=== PATIENT | male | born 1950 | race Two or more races ===

== ENCOUNTER 2020-06-15 08:15 | Outpatient (REF) | payer MEDICARE, OTHER, SELFPAY ==
[2020-06-15 10:26] LABS: Hematocrit 39.1 % (42-52); Hemoglobin 12.7 g/dl (14.0-18.0); Mean Corpuscular HGB Conc 32.5 g/dl (31.0-36.0); Mean Corpuscular Hemoglobin 28.5 pg (27.0-33.0); Mean Corpuscular Volume 87.9 fL (80-98); Mean Platelet Volume 12.1 fL (9.4-12.4); Platelet Count 220 X10*3/uL (160-400); Red Blood Count 4.45 X10*6/uL (4.60-5.80); Red Cell Distribution Width 13.1 % (11.0-16.0); White Blood Count 8.3 X10*3/uL (4.8-10.8)
[2020-06-15 11:28] LABS: Prostate Specific Antigen 0.27 ng/mL (<0.05-4.0)
[2020-06-19 13:22] LABS: Testosterone, Total 337 ng/dL (250-1100)
== END 2020-06-15 08:16 | disposition home or self-care (01) ==
LOC: HO.10HDL 08:15
PROVIDERS: Visit Provider Urology
DX: E23.0 Hypopituitarism (principal)
CPT/HCPCS: 36415; 84153; 84403; 85027

== ENCOUNTER → 2020-06-28 09:53 | Outpatient (BNVA) | payer MEDICARE, OTHER, SELFPAY | PROVIDERS: PCP Internal Medicine; Referring Provider Internal Medicine; Visit Provider Urology | DX: E29.1 Testicular hypofunction (principal); N40.1 Benign prostatic hyperplasia with lower urinary tract symptoms; N13.8 Other obstructive and reflux uropathy; Z12.5 Encounter for screening for malignant neoplasm of prostate | CPT/HCPCS: Q3014 ==

== ENCOUNTER 2020-12-16 08:22 | Outpatient (REF) | payer MEDICARE, OTHER, SELFPAY ==
[2020-12-16 10:21] LABS: PSA,Total (Free>4and<10) 0.33 ng/mL (0.00-4.00)
[2020-12-16 14:48] LABS: Hematocrit 40.3 % (42-52); Mean Corpuscular HGB Conc 32.3 g/dl (31.0-36.0); Mean Corpuscular Hemoglobin 28.5 pg (27.0-33.0); Mean Corpuscular Volume 88.4 fL (80-98); Mean Platelet Volume 12.2 fL (9.4-12.4); Platelet Count 233 X10*3/uL (160-400); Red Blood Count 4.56 X10*6/uL (4.60-5.80); Red Cell Distribution Width 13.5 % (11.0-16.0)
[2020-12-22 10:13] LABS: Testosterone, Free 26.6 pg/mL (30.0-135.0); Testosterone, Total 200 ng/dL (250-1100)
== END 2020-12-16 08:23 | disposition home or self-care (01) ==
LOC: HO.LAB 08:22
PROVIDERS: PCP Internal Medicine; Visit Provider Urology
DX: E29.1 Testicular hypofunction (principal); N40.1 Benign prostatic hyperplasia with lower urinary tract symptoms; N13.8 Other obstructive and reflux uropathy; Z12.5 Encounter for screening for malignant neoplasm of prostate
CPT/HCPCS: 36415; 84153; 84402; 84403; 85027

== ENCOUNTER → 2020-12-29 10:15 | Outpatient (BNVA) | payer MEDICARE, OTHER, SELFPAY | PROVIDERS: PCP Internal Medicine; Visit Provider Urology | DX: E29.1 Testicular hypofunction (principal) | CPT/HCPCS: 99212 ==

== ENCOUNTER 2021-06-19 09:46 | Outpatient (REF) | payer MEDICARE, OTHER, SELFPAY ==
[2021-06-19 09:53] LABS: MANUAL DIFF FLAG NO
[2021-06-19 10:37] LABS: Basophils Percent Auto 0.2 % (0-2); Eosinophils Absolute Auto 0.1 X10*3/uL (0.0-0.4); Hematocrit 38.9 % (42.0-52.0); Hemoglobin 12.6 g/dl (14.0-18.0); Imm Gran Abs Auto 0.04 X10*3/uL (0.00-0.03); Imm Gran Pct Auto 0.5 % (0.0-0.4); Lymphocytes Absolute Auto 3.3 X10*3/uL (1.2-4.9); Lymphocytes Percent Auto 37.7 % (20-40); Mean Corpuscular HGB Conc 32.4 g/dl (31.0-36.0); Mean Corpuscular Hemoglobin 28.2 pg (27.0-33.0); Mean Platelet Volume 12.2 fL (9.4-12.4); Monocytes Absolute Auto 0.8 X10*3/uL (0.1-1.2); Monocytes Percent Auto 8.7 % (2-11); Neutrophils Absolute Auto 4.5 x10*3/uL (2.0-8.3); Neutrophils Percent Auto 51.9 % (45-73); Platelet Count 175 X10*3/uL (160-400); Red Blood Count 4.47 X10*6/uL (4.60-5.80); Red Cell Distribution Width 13.3 % (11.0-16.0); White Blood Count 8.8 X10*3/uL (4.8-10.8)
[2021-06-19 11:04] LABS: Alanine Aminotransferase 17 U/L (0-40); Albumin Level 4.1 g/dL (3.5-5.0); Aspartate Amino Transferase 16 U/L (5-37); Bilirubin Direct 0.2 mg/dL (0.0-0.5); Bilirubin Total 0.5 mg/dL (0.0-1.0); Total Protein 6.8 g/dL (6.5-8.0)
[2021-06-19 11:06] LABS: Alanine Aminotransferase 17 U/L (0-40); Albumin Level 4.3 g/dL (3.5-5.0); Anion Gap 12 (12-20); Aspartate Amino Transferase 16 U/L (5-37); Bilirubin Total 0.5 mg/dL (0.0-1.0); Blood Urea Nitrogen 23 mg/dL (9-16); Calcium 8.8 mg/dL (8.4-10.2); Carbon Dioxide 23 mmol/L (22-29); Chloride 110 mmol/L (96-108); Cholesterol 182 mg/dL; Estimated Glomerular Filt Rate > 60; Glucose Random 109 mg/dL (60-115); HDL Cholesterol 43 mg/dL; LDL Cholesterol Calculated 113 mg/dl; Potassium 4.3 mmol/L (3.3-5.1); Sodium 141 mmol/L (135-145); Triglycerides 134 mg/dL
[2021-06-19 11:08] LABS: Estimated Average Glucose 128 mg/dL; Hemoglobin A1c % 6.1 %
[2021-06-19 11:08] LABS: Alkaline Phosphatase 60 U/L (39-117)
[2021-06-19 11:09] LABS: Alkaline Phosphatase 61 U/L (39-117)
[2021-06-19 11:30] LABS: Free T4 (Free Thyroxine) 1.03 ng/dL (0.71-1.85)
[2021-06-19 11:42] LABS: Folate 16.7 ng/mL (> or = 4.0); Vitamin B12 550 pg/mL (200-900)
[2021-06-23 19:25] LABS: Testosterone, Free 60.3 pg/mL (30.0-135.0); Testosterone, Total 361 ng/dL (250-1100)
== END 2021-06-19 09:47 | disposition home or self-care (01) ==
LOC: HO.LAB 09:46
PROVIDERS: Absent Provider Internal Medicine; PCP Internal Medicine; Visit Provider Urology
DX: Z12.5 Encounter for screening for malignant neoplasm of prostate (principal); R73.02 Impaired glucose tolerance (oral); E29.1 Testicular hypofunction
CPT/HCPCS: 36415; 80053; 80061; 80076; 82248; 82607; 82746; 83036; 84153; 84402; 84403; 84439; 84443; 85025; 85027

== ENCOUNTER → 2021-06-29 10:33 | Outpatient (BNVA) | payer MEDICARE, OTHER, SELFPAY | PROVIDERS: PCP Internal Medicine; Visit Provider Urology | DX: E29.1 Testicular hypofunction (principal) | CPT/HCPCS: 99212 ==

== ENCOUNTER 2021-12-19 09:36 | Outpatient (REF) | payer MEDICARE, OTHER, SELFPAY ==
[2021-12-19 10:07] LABS: MANUAL DIFF FLAG NO
[2021-12-19 10:41] LABS: Basophils Percent Auto 0.3 % (0-2); Eosinophils Absolute Auto 0.1 X10*3/uL (0.0-0.4); Hematocrit 38.2 % (42.0-52.0); Hemoglobin 12.2 g/dl (14.0-18.0); Hemoglobin 12.6 g/dl (14.0-18.0); Imm Gran Abs Auto 0.04 X10*3/uL (0.00-0.03); Imm Gran Pct Auto 0.5 % (0.0-0.4); Lymphocytes Absolute Auto 3.1 X10*3/uL (1.2-4.9); Lymphocytes Percent Auto 35.7 % (20-40); Mean Corpuscular HGB Conc 31.9 g/dl (31.0-36.0); Mean Corpuscular Hemoglobin 28.9 pg (27.0-33.0); Mean Corpuscular Volume 87.6 fL (80.0-98.0); Mean Platelet Volume 11.7 fL (9.4-12.4); Monocytes Absolute Auto 0.8 X10*3/uL (0.1-1.2); Neutrophils Absolute Auto 4.6 x10*3/uL (2.0-8.3); Neutrophils Percent Auto 53.5 % (45-73); Platelet Count 228 X10*3/uL (160-400); Platelet Count 240 X10*3/uL (160-400); Red Blood Count 4.36 X10*6/uL (4.60-5.80); Red Cell Distribution Width 13.5 % (11.0-16.0); Red Cell Distribution Width 13.6 % (11.0-16.0); White Blood Count 8.6 X10*3/uL (4.8-10.8); White Blood Count 8.7 X10*3/uL (4.8-10.8)
[2021-12-19 10:51] LABS: Estimated Average Glucose 126 mg/dL
[2021-12-19 11:06] LABS: Alanine Aminotransferase 18 U/L (0-40); Alkaline Phosphatase 59 U/L (39-117); Anion Gap 12 (12-20); Aspartate Amino Transferase 17 U/L (5-37); Bilirubin Total 0.6 mg/dL (0.0-1.0); Blood Urea Nitrogen 19 mg/dL (9-16); Calcium 9.1 mg/dL (8.4-10.2); Carbon Dioxide 23 mmol/L (22-29); Chloride 109 mmol/L (96-108); Cholesterol 154 mg/dL; Estimated Glomerular Filt Rate > 60; Glucose Random 119 mg/dL (60-115); HDL Cholesterol 37 mg/dL; LDL Cholesterol Calculated 90 mg/dl; Potassium 3.9 mmol/L (3.3-5.1); Sodium 140 mmol/L (135-145); Total Protein 6.7 g/dL (6.5-8.0); Triglycerides 137 mg/dL
[2021-12-19 11:22] LABS: Free T4 (Free Thyroxine) 0.89 ng/dL (0.71-1.85)
[2021-12-19 11:29] LABS: Prostate Specific Antigen 0.31 ng/mL (<0.05-4.0); Thyroid Stimulating Hormone 0.58 uIU/mL (0.32-4.0)
[2021-12-19 11:46] LABS: Folate > 20.0 ng/mL (> or = 4.0); Vitamin B12 646 pg/mL (200-900)
[2021-12-23 11:11] LABS: Testosterone, Total 355 ng/dL (250-1100)
== END 2021-12-19 09:37 | disposition home or self-care (01) ==
LOC: HO.LAB 09:36
PROVIDERS: Absent Provider Internal Medicine; PCP Internal Medicine; Visit Provider Urology
DX: Z12.5 Encounter for screening for malignant neoplasm of prostate (principal); E29.1 Testicular hypofunction; N13.8 Other obstructive and reflux uropathy; N40.1 Benign prostatic hyperplasia with lower urinary tract symptoms; R73.02 Impaired glucose tolerance (oral); E78.00 Pure hypercholesterolemia, unspecified
CPT/HCPCS: 36415; 80053; 80061; 82607; 82746; 83036; 84153; 84403; 84439; 84443; 85025; 85027

== ENCOUNTER → 2021-12-29 08:21 | Outpatient (BNVA) | payer MEDICARE, OTHER, SELFPAY | PROVIDERS: PCP Internal Medicine; Visit Provider Urology | DX: E29.1 Testicular hypofunction (principal) | CPT/HCPCS: 99212 ==

== ENCOUNTER 2022-06-19 09:22 | Outpatient (REF) | payer MEDICARE, OTHER, SELFPAY ==
[2022-06-19 10:11] LABS: Hematocrit 40.2 % (42.0-52.0)
[2022-06-19 14:45] LABS: Prostate Specific Antigen 0.28 ng/mL (<0.05-4.0)
[2022-06-24 17:39] LABS: Testosterone, Total 293 ng/dL (250-1100)
== END 2022-06-19 09:23 | disposition home or self-care (01) ==
LOC: HO.LAB 09:22
PROVIDERS: PCP Internal Medicine; Visit Provider Urology
DX: E29.1 Testicular hypofunction (principal); Z12.5 Encounter for screening for malignant neoplasm of prostate
CPT/HCPCS: 36415; 84153; 84403; 85014

== ENCOUNTER → 2022-07-03 09:21 | Outpatient (BNVA) | payer MEDICARE, OTHER, SELFPAY | PROVIDERS: PCP Internal Medicine; Visit Provider Urology | DX: E29.1 Testicular hypofunction (principal) | CPT/HCPCS: 99212 ==

== ENCOUNTER 2022-10-03 09:23 | Outpatient (REF) | payer MEDICARE, OTHER, SELFPAY ==
[2022-10-03 09:51] LABS: Estimated Average Glucose 126 mg/dL; Hemoglobin A1C 151.7464 umol/L
[2022-10-03 10:26] LABS: Alanine Aminotransferase 19 U/L (0-40); Albumin Level 4.4 g/dL (3.5-5.0); Alkaline Phosphatase 58 U/L (39-117); Anion Gap 12 (12-20); Aspartate Amino Transferase 20 U/L (5-37); Blood Urea Nitrogen 20 mg/dL (9-16); Carbon Dioxide 26 mmol/L (22-29); Chloride 109 mmol/L (96-108); Estimated Glomerular Filt Rate > 60; Glucose Random 122 mg/dL (60-115); Potassium 4.2 mmol/L (3.3-5.1); Sodium 143 mmol/L (135-145); Total Protein 7.1 g/dL (6.5-8.0)
== END 2022-10-03 09:24 | disposition home or self-care (01) ==
LOC: HO.LAB 09:23
PROVIDERS: Urology; PCP Internal Medicine; Visit Provider Internal Medicine
DX: R73.02 Impaired glucose tolerance (oral) (principal)
CPT/HCPCS: 36415; 80053; 83036

== ENCOUNTER 2022-12-14 09:23 | Outpatient (REF) | payer MEDICARE, OTHER, SELFPAY ==
[2022-12-14 09:51] LABS: Immature Retic Fraction 6.4 % (2.3-13.4); Retic HGB Equivalent 34.2 pg (30.0-35.0); Reticulocyte Percent 1.2 % (0.5-1.8); Reticulocytes Absolute 0.053 X10*6/uL (0.026-0.095)
[2022-12-14 09:57] LABS: Estimated Average Glucose 123 mg/dL; Hemoglobin A1c % 5.9 %
[2022-12-14 10:10] LABS: MANUAL DIFF FLAG NO
[2022-12-14 10:12] LABS: Basophils Percent Auto 0.4 % (0-2); Eosinophils Absolute Auto 0.1 X10*3/uL (0.0-0.4); Eosinophils Percent Auto 1.1 % (0-4); Hematocrit 40.3 % (42.0-52.0); Hemoglobin 13.3 g/dl (14.0-18.0); Imm Gran Abs Auto 0.03 X10*3/uL (0.00-0.03); Imm Gran Pct Auto 0.4 % (0.0-0.4); Lymphocytes Absolute Auto 3.6 X10*3/uL (1.2-4.9); Mean Corpuscular Hemoglobin 28.9 pg (27.0-33.0); Mean Corpuscular Volume 87.4 fL (80.0-98.0); Mean Platelet Volume 11.5 fL (9.4-12.4); Monocytes Absolute Auto 0.7 X10*3/uL (0.1-1.2); Monocytes Percent Auto 8.2 % (2-11); Neutrophils Absolute Auto 3.8 x10*3/uL (2.0-8.3); Neutrophils Percent Auto 45.9 % (45-73); Platelet Count 229 X10*3/uL (160-400); Red Blood Count 4.61 X10*6/uL (4.60-5.80); Red Cell Distribution Width 13.3 % (11.0-16.0); White Blood Count 8.2 X10*3/uL (4.8-10.8)
[2022-12-14 10:23] LABS: Alanine Aminotransferase 20 U/L (0-40); Albumin Level 4.3 g/dL (3.5-5.0); Alkaline Phosphatase 60 U/L (39-117); Anion Gap 14 (12-20); Aspartate Amino Transferase 18 U/L (5-37); Bilirubin Total 0.9 mg/dL (0.0-1.0); Blood Urea Nitrogen 19 mg/dL (9-16); Calcium 8.9 mg/dL (8.4-10.2); Carbon Dioxide 25 mmol/L (22-29); Chloride 108 mmol/L (96-108); Cholesterol 168 mg/dL; Estimated Glomerular Filt Rate > 60; Glucose Random 114 mg/dL (60-115); HDL Cholesterol 40 mg/dL; Iron 120 mcg/dL (45-160); LDL Cholesterol Calculated 94 mg/dl; Percent Iron Saturation 36 % (15-50); Sodium 143 mmol/L (135-145); Total Iron Binding Capacity 334 mcg/dL (228-428); Triglycerides 172 mg/dL; Unsaturated Iron Binding 214 ug/dL
[2022-12-14 10:37] LABS: Ferritin 96 ng/mL (20-250); Free T4 (Free Thyroxine) 0.96 ng/dL (0.71-1.85); Prostate Specific Antigen Scr 0.32 ng/mL (<0.05-4.0)
[2022-12-14 10:53] LABS: Folate 19.1 ng/mL (> or = 4.0); Prostate Specific Antigen 0.33 ng/mL (<0.05-4.0); Thyroid Stimulating Hormone 1.07 uIU/mL (0.32-4.0); Vitamin B12 862 pg/mL (200-900)
[2022-12-21 12:24] LABS: Testosterone, Total 380 ng/dL (250-1100)
== END 2022-12-14 09:24 | disposition home or self-care (01) ==
LOC: HO.LAB 09:23
PROVIDERS: Absent Provider Internal Medicine; PCP Internal Medicine; Visit Provider Urology
DX: Z12.5 Encounter for screening for malignant neoplasm of prostate (principal); E29.1 Testicular hypofunction; R73.02 Impaired glucose tolerance (oral); I10 Essential (primary) hypertension
CPT/HCPCS: 36415; 80053; 80061; 82607; 82728; 82746; 83036; 83540; 84153; 84403; 84439; 84443; 85025; 85027; 85045

== ENCOUNTER → 2023-01-02 09:42 | Outpatient (BNVA) | payer MEDICARE, OTHER, SELFPAY | PROVIDERS: PCP Internal Medicine; Visit Provider Urology | DX: E29.1 Testicular hypofunction (principal) | CPT/HCPCS: 99212 ==

== ENCOUNTER 2023-02-22 09:45 | Outpatient (AMB) | payer MEDICARE, OTHER, SELFPAY ==
[2023-02-22 09:47] VITALS: BP 148/80; PULSE 71; O2SAT 96; BMI 36.8
--- NOTE | 2023-02-22 09:47 | A.OFFVIS_ITS ---
Intake Vital Signs 02/22/23 09:47 Height 5 ft 5 in Weight 221 lb BMI 36.8 BP 148/80 H Blood Pressure Location Lt brachial Position Sitting Pulse 71 Pulse Source Pulse Oximeter Temp Source Skin Pulse Oximetry (%) 96 Oxygen Delivery Method Room Air Intake Visit Reasons: SWV- G0439 Intake Note: Patient is here for an Annual Wellness Visit. 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 Required: No Allergies lisinopril Allergy (Intermediate, Verified 02/22/23 10:05) cough Medication List - Last Reconciled 02/22/23 by DOMENIC Cervantes amitriptyline 10 mg PO BEDTIME amlodipine 5 mg PO DAILY 90 days atorvastatin 20 mg PO DAILY cholecalciferol (vitamin D3) 50 mcg PO DAILY cyanocobalamin (vitamin B-12) 1,000 mcg PO DAILY fenofibrate 54 mg PO DAILY fluticasone propionate 50 mcg/actuation 2 sprays intranasal DAILY folic acid 1 mg PO DAILY hydrochlorothiazide 25 mg PO DAILY meloxicam 15 mg PO DAILY PRN omeprazole 20 mg PO DAILY testosterone (AndroGel) 4 pumps topical DAILY 30 days Fall Risk Assessment Fall risk assessment: No Falls in past year Date Fall Risk Assessed: 02/22/23 HPI SWV- G0439 HPI Details Patient is a 72-year-old male who presents today for subsequent wellness visit. Patient of Dr. Hsieh. Patient is up-to-date with his health preventative screenings and immunizations. [place] of care was reviewed with the patient and he was provided with a screening schedule. MOLST form is on file and patient reports that he has a healthcare proxy form at home and he will provide office with a copy. [facility] Medical History Allergic rhinitis Anemia Headache Hypercholesterolemia Hypertension Hypogonadism Impaired glucose tolerance Obesity (BMI 30-39.9) Prediabetes Vitamin D deficiency Surgical History Finger amputation, traumatic History of ankle surgery History of colonoscopy Family History Father Lung cancer Mother Diabetes Hypertension CVD (cardiovascular disease) Brother No problems noted. Social History Housing: House Alcohol intake: current Alcohol intake frequency: holidays/special occasions only Alcohol type: beer Patient Tobacco Use Status: Former Tobacco user Years Smoked: quit 1986 e-Cigarette/Vaping Use: Never Used Second Hand Smoke Exposure: No Current occupational status: retired Cognitive needs: No Hearing needs: No Vision needs: Yes Questionnaire Medicare Wellness Checkup What [age]?: 70-79 (72) What gender do you identify with?: male During the past 4 weeks, how much have you been bothered by emotional problems such as feeling anxious, depressed, irritable, sad or downhearted, and blue?: not at all During the past 4 weeks, has your physical & emotional health limited your social activities with family, friends, neighbors, or groups?: not at all During the past 4 weeks, how much bodily pain have you generally had?: mild pain During the past 4 weeks, was someone available to help you if you needed & wanted help?: no, not at all During the past 4 weeks, what was the hardest physical activity you could do for at least 2 minutes?: moderate Can you get to places out of walking distance without help? (For eg., can you travel alone on buses, taxis or drive your car?): Yes Can you go shopping for groceries or clothes without someone's help?: Yes Can you prepare your own meals?: Yes Can you do your housework without help?: Yes Because of any health problems, do you need the help of another person with your personal care needs such as eating, bathing, dressing or getting around the house?: No Can you handle your own money without help?: Yes During the past 4 weeks, how would you rate your health in general?: good During the past 4 weeks how have things been going for you?: pretty well Are you having difficulties driving your car?: no Do you always fasten your seat belt when you are in a car?: yes, usually During past 4 weeks, have you been bothered by the following: never: Falling or dizzy when standing up, Sexual problems?, Trouble eating well? and Problems using the telephone? and seldom: Teeth or denture problems? and Tiredness or fatigue? Have you fallen 2 or more times in the past year?: No Are you afraid of falling?: Yes Are you a smoker?: no During the past 4 weeks, how many drinks of wine, beer, or other alcoholic beverages did you have?: 2-5 drinks per week Do you exercise for about 20 minutes 3 or more times a week?: no, I usually do not exercise this much Have you been given information to help with the following?: yes: Hazards in your house that might hurt you? and yes: Keeping track of your medications? How often do you have trouble taking medicines the way you have been told to take them?: I always take medicine as prescribed How confident are you that you can control & manage most of your health problems?: somewhat confident What is your race?: or origin or descent Mini Mental State Exam (MMSE) Orientation What is the (year) (season) (date) (day) (month)?: year, season, date, day and month Score Score: 5 Activity of Daily Living Bathing - sponge bath, tub bath or shower: receives no assistance (gets in/out by self, if usual bathing means Dressing - getting clothes from closets & drawers, including inner/outer garments & fasteners.: gets clothes & gets completely dressed without help Toileting - going to the 'toilet room' for urine/bowel elimination & cleaning self/arranging clothes: goes to toilet room, cleans self, arranges clothes without help Transfer: moves in & out of bed and chair without help (may use support object) Continence: controls urination/bowel movements completely by self Feeding: feeds self without help Total Score: 0 Information obtained from: patient Using telephone: independent Traveling: independent Shopping: independent Preparing meals: independent Housework: independent Taking medicine: independent Managing money: independent PHQ-9 Over the last 2 weeks, how often have you been bothered by any of the following problems? 1. Little interest or pleasure in doing things: not at all 2. Feeling down, depressed, or hopeless: not at all 3. Trouble falling or staying asleep, or sleeping too much: not at all 4. Feeling tired or having little energy: not at all 5. Poor appetite or overeating: not at all 6. Feeling bad about yourself - or that you are a failure or have let yourself or your family down: not at all 7. Trouble concentrating on things, such as reading the newspaper or watching television: not at all 8. Moving or speaking so slowly that other people could have noticed. Or the opposite - being so fidgety or restless that you have been moving around a lot more than usual: not at all 9. Thoughts that you would be better off or of hurting yourself in some way: not at all Total score: 0 Depression Screening Interpretation: Negative 42647 - PHQ-9 Billing: Yes Source: Developed by Drs. Fantasma Rios, Emmie Moya, Bean San and colleagues, with an educational yvonne from [employer]. FIDELIA-7 AMB Questionnaire FIDELIA-7 Date FIDELIA - 7 assessed: 02/22/23 Feeling nervous, anxious, or on edge: 0 = Not at all Not being able to stop or control worryin = Not at all Worrying too much about different things: 0 = Not at all Trouble relaxin = Not at all Being so restless that it is hard to sit still: 0 = Not at all Becoming easily annoyed or irritable: 0 = Not at all Feeling afraid as if something awful might happen: 0 = Not at all Total FIDELIA-7 score (0-4 normal; 5-9 mild; 10-14 moderate; 15-21 severe): 0 Source: Developed by Drs. Fantasma Rios, Emmie Moya, Bean San and colleagues, with an educational yvonne from [employer]. FIDELIA-7 Assessment Billing FIDELIA-7 Assessment Tool: FIDELIA-7 Assessment 63934 AUDIT C Alcohol Use Questionnaire (AUDIT-C) 1. How often do you have a drink containing alcohol?: Monthly or less 2. How many drinks containing alcohol do you have on a typical day when you are drinking?: 1 or 2 3. How often do you have six or more drinks on one occasion?: Never Total Score: 1 Score Reviewed/Action Taken: No Thrive Questionnaire Date Thrive assessed: 10/04/22 Physical Exam Vital Signs: Last Vital Signs Pulse 71 02/22/23 09:47 BP 148/80 H 02/22/23 09:47 Pulse Ox 96 02/22/23 09:47 Oxygen Delivery Method Room Air 02/22/23 09:47 BMI result Body Mass Index 36.8 Const General: cooperative and no acute distress Orientation/consciousness: patient oriented x3 HEENT Other: Whisper test: pass Neuro Other: Balance: Normal Get up and walk: able to Romberg: negative Tandem gait: able to General: patient oriented x3 Assessment & Plan Assessment & Plan (1) Prediabetes: Code(s): R73.03 - Prediabetes Plan: A1c 5.9 11/2022 Reinforced low carbohydrate diet (2) Headache: Code(s): R51.9 - Headache, unspecified Plan: Continue to follow-up with neurology as scheduled Patient is on amitriptyline 10 mg at bedtime (3) Adult general medical exam: Code(s): Z00.00 - Encounter for general adult medical examination without abnormal findings (4) Hypogonadism in male: Code(s): E29.1 - Testicular hypofunction Plan: Continue to follow-up with urology Dr. Gil as scheduled (5) Hypercholesterolemia: Code(s): E78.00 - Pure hypercholesterolemia, unspecified Plan: Continue current treatment Low-cholesterol diet (6) Obesity (BMI 30-39.9): Code(s): E66.9 - Obesity, unspecified Plan: Healthy food choices and exercise as tolerated (7) Hypertension: Code(s): I10 - Essential (primary) hypertension Qualifiers: Hypertension type: essential hypertension Qualified Code(s): I10 - Essential (primary) hypertension Plan: Continue current treatment Low-sodium diet Goal BP equal or less than 140/90 Quality Reporting (2019) Fall Risk Screening ([facility] 139) Last assessed Fall Risk: 02/22/23 Fall risk assessment: No Falls in past year Depression/Bipolar (159/160/161/177) PHQ-9: Total score: 0 Coding Level of Care Code Medicare Subsequent (G0439) Diagnoses Prediabetes R73.03 Headache R51.9 Adult general medical exam Z00.00 Hypogonadism in male E29.1 Hypercholesterolemia E78.00 Obesity (BMI 30-39.9) E66.9 Hypertension I10 Hypertension type: essential hypertension CPT Codes Advance Care Planning - Advance Care Planning discussion: On file, no changes ([id number]) Advance Care Planning - Time spent: 1-15 minutes, on File ([id number]) Additional Codes FIDELIA-7 Assessment Billing - FIDELIA-7 Assessment Tool: FIDELIA-7 Assessment 70367 ([id number]) Advance Care Planning Advance Care Planning discussion: On file, no changes Date of discussion: 02/22/23 Who was present: pt and digital research analyst Forms completed: None Time spent: 1-15 minutes, on File Actual minutes spent: 1 Did not discuss due to Cultural/Spiritual beliefs: No
== END 2023-02-22 10:14 | disposition home or self-care (01) ==
PROVIDERS: Visit Provider Nurse Practitioner Family
DX: Z00.00 Encounter for general adult medical examination without abnormal findings (principal); E29.1 Testicular hypofunction; I10 Essential (primary) hypertension; Z68.36 Body mass index [BMI] 36.0-36.9, adult; R73.03 Prediabetes; R51.9 Headache, unspecified; E78.00 Pure hypercholesterolemia, unspecified; E66.9 Obesity, unspecified
CPT/HCPCS: 1123F; G0439

== ENCOUNTER 2023-04-08 09:23 | Outpatient (AMB) | payer MEDICARE, OTHER, SELFPAY ==
[2023-04-08 09:26] VITALS: BP 180/88; PULSE 72; O2SAT 94; BMI 35.6
--- NOTE | 2023-04-08 09:26 | MHC.PC.OV ---
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 Accompanied by: Self / Same As Patient Allergies lisinopril Allergy (Intermediate, Verified 04/08/23 09:27) cough Tobacco use date assessed: 10/04/22 Fall risk assessment: No Falls in past year Last assessed Fall Risk: 04/08/23 Dental Screening Dental Screen Date: 04/08/23 Did you have a dental visit in the last 12 months?: No Did you have a dental problem in the last 6 months where you did not have access to dental care?: No Was dental information given to patient?: Patient has dentist HPI IGT, HPI Details 73-year-old obese male with impaired glucose tolerance hypertension hypercholesterol E hypogonadism last seen in September 2022 patient is here for follow-up. Colonoscopy 2014 patient just had a well visit done in February noted have an elevated blood pressure on amlodipine 5 mg once a day hydrochlorothiazide 25 mg once a day. Patient continues to follow up with urology on AndroGel pump for pumps daily patient's last blood work was in November 2022. Hemoglobin A1c was 5.9, triglyceride was 172. Patient complains of having knee pain started of with left knee 1st and then presently right knee patient does play golf which is interfering with this deny any fall or trauma deny any swelling or redness. With the pain in the knee prompting for consultation patient does take meloxicam for pain as needed. Patient also need refill on amitriptyline [facility] Medical History Allergic rhinitis Anemia Headache Hypercholesterolemia Hypertension Hypogonadism Impaired glucose tolerance Obesity (BMI 30-39.9) Prediabetes Vitamin D deficiency Surgical History History of colonoscopy Finger amputation, traumatic History of ankle surgery Family History (Updated 04/08/23 @ 09:28 by KENDALL Gomez) Father Lung cancer Mother Diabetes Hypertension CVD (cardiovascular disease) Brother No problems noted. Social History Housing: House Alcohol intake: current Alcohol intake frequency: holidays/special occasions only Alcohol type: beer Patient Tobacco Use Status: Former Tobacco user Years Smoked: quit 1986 e-Cigarette/Vaping Use: Never Used Second Hand Smoke Exposure: No service: No Current occupational status: retired Cognitive needs: No Hearing needs: No Vision needs: Yes Questionnaire Thrive Questionnaire Date Thrive assessed: 10/04/22 FIDELIA-7 AMB Questionnaire FIDELIA-7 Date FIDELIA - 7 assessed: 02/22/23 Source: Developed by Drs. Fantasma Rios, Emmie Moya, Bean San and colleagues, with an educational yvonne from [employer]. Physical exam (Primary Care) Vital Signs: Last Vital Signs Pulse 72 04/08/23 09:26 BP 180/88 H 04/08/23 09:26 Pulse Ox 94 04/08/23 09:26 Oxygen Delivery Method Room Air 04/08/23 09:26 BMI result Body Mass Index 35.6 Tobacco/Smoking Status: Tobacco use Status Tobacco use date assessed 10/04/22 04/08/23 09:30 Patient Tobacco Use Status Former Tobacco user 04/08/23 09:30 e-Cigarette/Vaping Use Never Used 04/08/23 09:30 Thrive Assessment: Date of Thrive Assessment Date Thrive assessed 10/04/22 04/08/23 09:30 Const General: alert; No acute distress Eyes Conjunctivae: conjunctivae normal Resp Auscultation: clear to auscultation bilaterally Cardio Rate: regular rate Rhythm: regular rhythm GI Inspection: Yes normal to inspection Extrem General: Yes normal to inspection and No edema Assessment and Plan Assessment & Plan (1) Hypogonadism in male: Code(s): E29.1 - Testicular hypofunction Plan: Patient continues to follow-up with Urology on AndroGel pump (2) Hypercholesterolemia: Code(s): E78.00 - Pure hypercholesterolemia, unspecified Plan: Avoid fried foods, chicken skin, eggs, butter margarine, pastries and meat. Be it pork or beef they have a lot of cholesterol LDL goal of less than 130 and triglyceride of less than 150. Patient is on fenofibrate 54 mg once a day and atorvastatin 20 mg once a day (3) Obesity (BMI 30-39.9): Code(s): E66.9 - Obesity, unspecified Plan: Diet and exercise (4) Impaired glucose tolerance: Code(s): R73.02 - Impaired glucose tolerance (oral) Plan: Decrease the amount of carbohydrate intake, pasta, bread, rice and potatoes are all sugar and that is aside from all the sweet stuff, remember that fruits are good but they are Sweet also. November 2022 hemoglobin A1c 5.9 (5) Hypertension: Code(s): I10 - Essential (primary) hypertension Qualifiers: Hypertension type: essential hypertension Qualified Code(s): I10 - Essential (primary) hypertension Plan: Continue with blood pressure medication. Decrease salt intake and exercise patient takes amlodipine 5 mg once a day and hydrochlorothiazide 25 mg once a day (6) Headache: Code(s): R51.9 - Headache, unspecified (7) Pes anserine bursitis: Comment: right knee Code(s): M70.50 - Other bursitis of knee, unspecified knee Orders: Orders XR knee standing BI Today M70.50 - Other bursitis of knee, unspecified knee Referrals Orthopedics Referral M70.50 - Other bursitis of knee, unspecified knee Medications: New amitriptyline 10 mg PO BEDTIME 90 tabs 2RF R51.9 - Headache, unspecified Coding Level of Care Code Est Pt Level 4 (55188) Diagnoses Hypogonadism in male E29.1 Hypercholesterolemia E78.00 Obesity (BMI 30-39.9) E66.9 Impaired glucose tolerance R73.02 Essential hypertension I10 Hypertension type: essential hypertension Headache R51.9 Pes anserine bursitis M70.50
== END 2023-04-08 09:50 | disposition home or self-care (01) ==
PROVIDERS: PCP Internal Medicine; Visit Provider Internal Medicine
DX: I10 Essential (primary) hypertension (principal); E29.1 Testicular hypofunction; Z68.35 Body mass index [BMI] 35.0-35.9, adult; E66.9 Obesity, unspecified; E78.00 Pure hypercholesterolemia, unspecified; R73.02 Impaired glucose tolerance (oral); R51.9 Headache, unspecified; M70.50 Other bursitis of knee, unspecified knee
CPT/HCPCS: 99214

== ENCOUNTER 2023-04-08 09:59 | Outpatient (REF) | payer MEDICARE, OTHER, SELFPAY ==
--- NOTE | ~2023-04-08 | XR_ITS ---
EXAMINATION: XR KNEE AP STANDING CLINICAL INFORMATION: Bursitis knee COMPARISON: None available. TECHNIQUE: 2 views, AP bilateral standing view of the knees FINDINGS: Moderate to marked degenerative changes with medial joint space narrowing in the bilateral knees, left greater than right. Bilateral varus angulation. XR/XR knee standing BI IMPRESSION: Moderate to marked degenerative changes with medial joint space narrowing in the bilateral knees, left greater than right.
== END 2023-04-08 10:00 | disposition home or self-care (01) ==
LOC: HO.XRAY 09:59
PROVIDERS: PCP Internal Medicine; Visit Provider Internal Medicine
DX: M70.51 Other bursitis of knee, right knee (principal); M70.52 Other bursitis of knee, left knee
CPT/HCPCS: 73565

== ENCOUNTER 2023-04-18 08:19 | Outpatient (AMB) | payer MEDICARE, OTHER, SELFPAY ==
--- NOTE | 2023-04-18 08:30 | A.OFFVIS_ITS ---
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 He describes his knee pains as sharp and severe in nature, 04/30. His pains have gotten worse over the last few years in spite of continued non treatment he has tried Tylenol and mellitus sick and which gave him minimal relief. He has also done physical therapy for 12 weeks over the last 6 months which aggravated his pain. He has had injections in the past which gave him minimal relief. The patient has difficulty walking even short distances because of his knee pains. At this point is right knee pain is interfering with his activities of daily living and his ability well through the night. Allergies lisinopril Allergy (Intermediate, Verified 04/18/23 08:32) cough Medication List - Last Reconciled 04/18/23 by Ron Mccray MD amitriptyline 10 mg PO BEDTIME amlodipine 5 mg PO DAILY 90 days atorvastatin 20 mg PO DAILY celecoxib (Celebrex) 200 mg PO DAILY PRN cholecalciferol (vitamin D3) 50 mcg PO DAILY cyanocobalamin (vitamin B-12) 1,000 mcg PO DAILY fenofibrate 54 mg PO DAILY fluticasone propionate 50 mcg/actuation 2 sprays intranasal DAILY folic acid 1 mg PO DAILY hydrochlorothiazide 25 mg PO DAILY omeprazole 20 mg PO DAILY testosterone (AndroGel) 4 pumps topical DAILY 30 days [facility] Medical History Prediabetes Headache Hypercholesterolemia Vitamin D deficiency Allergic rhinitis Obesity (BMI 30-39.9) Hypogonadism Anemia Impaired glucose tolerance Hypertension Surgical History History of colonoscopy Finger amputation, traumatic History of ankle surgery Family History Father Lung cancer Mother Diabetes Hypertension CVD (cardiovascular disease) Brother No problems noted. Social History Housing: House Alcohol intake: current Alcohol intake frequency: holidays/special occasions only Alcohol type: beer Patient Tobacco Use Status: Former Tobacco user Years Smoked: quit 1986 e-Cigarette/Vaping Use: Never Used Second Hand Smoke Exposure: No service: No Current occupational status: retired Cognitive needs: No Hearing needs: No Vision needs: Yes Physical Exam Const Other: Well-nourished well-developed very friendly male awake alert and oriented x3 in no acute distress Extrem Other: Bilateral lower extremity examination shows good capillary refill, no skin lesions noted, normal sensation light touch Bilateral knee examination shows minimal effusions, palpable crepitus with range of motion, pain with range of motion, range of motion from -3 degrees to 115 degrees, no instability Results Reviewed Results Reviewed: X-rays of the patient's bilateral knee show severe joint space narrowing with grade 4 [id number] arthritis, subchondral sclerosis, osteophyte formation, no acute bony abnormalities Assessment & Plan Assessment & Plan (1) Arthritis of left knee: Code(s): M17.12 - Unilateral primary osteoarthritis, left knee Plan: Mr. Capone presents with progressively worsening bilateral knee pains, right greater than left, due to end-stage degenerative joint disease. I had a lengthy discussion with the patient regarding the treatment options. At this point he has failed continued non operative treatments. The risks and benefits of right total knee replacement surgery were discussed at length with the patient. The patient is interested in proceeding with surgery early next year. I will have my office contact the patient to pick a surgery date. I will see him back 1 week prior to his surgery to answer any final questions that he might have. If his left knee pain does become more severe than is his right at the time of his surgery we could certainly proceed with left total knee replacement surgery 1st. I did switch him from meloxicam to Celebrex to see if this would give him any significant relief in the meantime. Feel free to call me at any time should questions regarding his orthopedic management arise. Thank you very much for asking me to see this very friendly gentleman. I spent 22 minutes in reviewing the patient's records and imaging studies, seeing the patient and documenting in the medical record. (2) Arthritis of right knee: Code(s): M17.11 - Unilateral primary osteoarthritis, right knee Medications: New celecoxib (Celebrex) 200 mg PO DAILY PRN 30 caps 3RF pain Discontinued meloxicam Discontinued Reason: Doctor's Order 15 mg PO DAILY PRN 90 tabs 1RF pain Coding Level of Care Code New Pt Level 2 (43749) Diagnoses Arthritis of left knee M17.12 Arthritis of right knee M17.11
== END 2023-04-18 09:00 | disposition home or self-care (01) ==
PROVIDERS: PCP Internal Medicine; Visit Provider Orthopaedic Surgery
DX: M17.0 Bilateral primary osteoarthritis of knee (principal)
CPT/HCPCS: 99202

== ENCOUNTER → 2023-04-18 08:19 | Outpatient (BNVA) | payer MEDICARE, OTHER, SELFPAY | PROVIDERS: PCP Internal Medicine; Visit Provider Orthopaedic Surgery | DX: M17.0 Bilateral primary osteoarthritis of knee (principal) | CPT/HCPCS: 99202 ==

== ENCOUNTER 2023-04-26 09:42 | Outpatient (AMB) | payer MEDICARE, OTHER, SELFPAY ==
[2023-04-26 10:19] VITALS: BP 138/72; PULSE 76; O2SAT 98; BMI 35.8
--- NOTE | 2023-04-26 10:19 | MHC.PC.OV ---
Vital Signs 04/26/23 10:19 Height 5 ft 5 in Weight 97.522 kg BMI 35.8 BP 138/72 Blood Pressure Location Lt brachial Position Sitting Pulse 76 Pulse Source Pulse Oximeter Pulse Oximetry (%) 98 Oxygen Delivery Method Room Air Intake Visit Reasons: PE Allergies lisinopril Allergy (Intermediate, Verified 04/26/23 10:19) cough Medication List - Last Reconciled 04/26/23 by Sherly Hsieh MD amitriptyline 10 mg PO BEDTIME amlodipine 5 mg PO DAILY 90 days atorvastatin 20 mg PO DAILY celecoxib (Celebrex) 200 mg PO DAILY PRN cholecalciferol (vitamin D3) 50 mcg PO DAILY cyanocobalamin (vitamin B-12) 1,000 mcg PO DAILY fenofibrate 54 mg PO DAILY fluticasone propionate 50 mcg/actuation 2 sprays intranasal DAILY folic acid 1 mg PO DAILY hydrochlorothiazide 25 mg PO DAILY omeprazole 20 mg PO DAILY testosterone (AndroGel) 4 pumps topical DAILY 30 days Tobacco use date assessed: 10/04/22 Fall risk assessment: No Falls in past year Last assessed Fall Risk: 04/26/23 Dental Screening Dental Screen Date: 04/26/23 Did you have a dental visit in the last 12 months?: No Did you have a dental problem in the last 6 months where you did not have access to dental care?: No Was dental information given to patient?: Patient has dentist HPI PE HPI Details 73-year-old obese male with hypercholesterolemia impaired glucose tolerance hypertension and hypogonadism coming in for physical exam. Last seen last month. Colonoscopy is up-to-date. Patient complained of knee pain and was sent to orthopedics . Planned surgery. no schedules yet- [facility] Medical History Prediabetes Headache Hypercholesterolemia Vitamin D deficiency Allergic rhinitis Obesity (BMI 30-39.9) Hypogonadism Anemia Impaired glucose tolerance Hypertension Surgical History History of colonoscopy Finger amputation, traumatic History of ankle surgery Family History Father Lung cancer Mother Diabetes Hypertension CVD (cardiovascular disease) Brother No problems noted. Social History (Updated 04/26/23 @ 10:45 by Sherly Hsieh MD) Housing: House Alcohol intake: current Alcohol intake frequency: holidays/special occasions only Alcohol type: beer Patient Tobacco Use Status: Former Tobacco user Tobacco use type: Cigarette Years Smoked: 1986 e-Cigarette/Vaping Use: Never Used Second Hand Smoke Exposure: No service: No Current occupational status: retired Cognitive needs: No Hearing needs: No Vision needs: Yes Questionnaire PHQ-9 Over the last 2 weeks, how often have you been bothered by any of the following problems? 1. Little interest or pleasure in doing things: not at all 2. Feeling down, depressed, or hopeless: not at all 3. Trouble falling or staying asleep, or sleeping too much: not at all 4. Feeling tired or having little energy: not at all 5. Poor appetite or overeating: not at all 6. Feeling bad about yourself - or that you are a failure or have let yourself or your family down: not at all 7. Trouble concentrating on things, such as reading the newspaper or watching television: not at all 8. Moving or speaking so slowly that other people could have noticed. Or the opposite - being so fidgety or restless that you have been moving around a lot more than usual: not at all 9. Thoughts that you would be better off or of hurting yourself in some way: not at all Total score: 0 Depression Screening Interpretation: Negative Depression Screening Done: Yes 48891 - PHQ-9 Billing: Yes Source: Developed by Drs. Fantasma Rios, Bean Oviedo and colleagues, with an educational yvonne from [employer]. Thrive Questionnaire Date Thrive assessed: 10/04/22 AUDIT C Alcohol Use Questionnaire (AUDIT-C) 1. How often do you have a drink containing alcohol?: Monthly or less 2. How many drinks containing alcohol do you have on a typical day when you are drinking?: 1 or 2 3. How often do you have six or more drinks on one occasion?: Never Total Score: 1 Score Reviewed/Action Taken: No FIDELIA-7 AMB Questionnaire FIDELIA-7 Date FIDELIA - 7 assessed: 02/22/23 Source: Developed by Drs. Fantasma Rios, Emmie Moya, Bean San and colleagues, with an educational yvonne from [employer]. Review of Systems Const Denies poor appetite and Denies weakness Eyes Denies no additional complaints ENT Reports Normal hearing present, Denies dizziness, Denies nasal congestion, Denies tinnitus and Denies sore throat Card Denies chest pain, Denies syncope, Denies rapid heart rate and Denies dyspnea Resp Denies cough and Denies dyspnea GI Denies change in stool character, Reports constipation, Denies diarrhea, Denies nausea and Denies vomiting Denies dysuria and Denies urinary frequency Neuro Reports Normal hearing present, Denies confusion, Denies dizziness, Denies syncope and Denies weakness Psych Denies confusion Physical exam (Primary Care) Vital Signs: Last Vital Signs Pulse 76 04/26/23 10:19 BP 138/72 04/26/23 10:19 Pulse Ox 98 04/26/23 10:19 Oxygen Delivery Method Room Air 04/26/23 10:19 BMI result Body Mass Index 35.8 Tobacco/Smoking Status: Tobacco use Status Tobacco use date assessed 10/04/22 04/26/23 10:22 Patient Tobacco Use Status Former Tobacco user 04/26/23 10:45 Tobacco use type Cigarette 04/26/23 10:45 e-Cigarette/Vaping Use Never Used 04/26/23 10:45 PHQ-9: PHQ-9 Score PHQ-9: Total score 0 04/26/23 10:32 Depression Screening Interpretation: Negative Thrive Assessment: Date of Thrive Assessment Date Thrive assessed 10/04/22 04/26/23 10:22 Const General: No confusion Orientation/consciousness: No confusion HENMT Other: impacted cerumen bilateral Head: Yes normocephalic Ears: external ears normal Face and sinus: Yes normal facial exam Mouth: moist mucous membranes Throat: Yes tonsils normal Eyes Conjunctivae: conjunctivae normal Pupils: Equal, round and reactive pupils present and Pupil accommodation reflex normal Direct Ophthalmoscopy: normal light reflex Neck Neck: No lymphadenopathy Thyroid: Thyroid normal Chest Chest palpation & inspection: normal inspection of the chest Resp Effort & Inspection: normal respiratory effort and no audible wheezes Auscultation: clear to auscultation bilaterally, no crackles, no wheezes and lung sounds not diminished Cardio Rate: regular rate Rhythm: regular rhythm Peripheral pulses: radial pulses present and dorsalis pedis present GI Other: guaiac negative prostate N Palpation (GI): no masses Auscultation: normal bowel sounds and normoactive bowel sounds Skin General skin exam: no rashes or lesions noted Rashes: no rashes Neuro General: No confusion Cranial nerves: Yes Equal, round and reactive pupils present and Yes Normal hearing present Cognition (Neuro): normal cognition Gait exam (Neuro): Normal gait present Motor exam (neuro): 5/5 motor strength present throughout Deep tendon reflexes (DTR's): Right brachioradialis reflex intensity grade: 2+, Left brachioradialis reflex intensity grade: 2+, Right patellar reflex intensity grade: 2+ and Left patellar reflex intensity grade: 2+ Extrem General: No edema Immunizations pneumoc 20-graciela conj-dip cr(PF) 0.5 mL IM syringe Performing Provider: Sherly Hsieh MD Performing Location: [facility] Administered by: Isha Laura CMA on 04/26/23 11:03 Dose Route Admin Location Dispensed Lot Number Expiration Date NDC [employer] 0.5 mL IM Left Deltoid 0.5 mL [id number] 04/21/24 [employer] VIS Given Date VIS Provided VIS Publication Date 04/26/23 Single Vaccine 21 Eligibility Eligibility Date Funding Source Not [facility] Eligible 04/26/23 Private Assessment and Plan Assessment & Plan (1) Annual physical exam: Code(s): Z00.00 - Encounter for general adult medical examination without abnormal findings (2) Arthritis of right knee: Code(s): M17.11 - Unilateral primary osteoarthritis, right knee Plan: Patient sees Orthopedics and planned surgery (3) Arthritis of left knee: Code(s): M17.12 - Unilateral primary osteoarthritis, left knee (4) Hypertension: Code(s): I10 - Essential (primary) hypertension Qualifiers: Hypertension type: essential hypertension Qualified Code(s): I10 - Essential (primary) hypertension Plan: Continue with blood pressure medication. Decrease salt intake and exercise patient takes, amlodipine 5 mg once a day and hydrochlorothiazide 25 mg once a day (5) Impaired glucose tolerance: Code(s): R73.02 - Impaired glucose tolerance (oral) Plan: Decrease the amount of carbohydrate intake, pasta, bread, rice and potatoes are all sugar and that is aside from all the sweet stuff, remember that fruits are good but they are Sweet also. (6) Obesity (BMI 30-39.9): Code(s): E66.9 - Obesity, unspecified Plan: Diet and exercise (7) Hypercholesterolemia: Code(s): E78.00 - Pure hypercholesterolemia, unspecified Plan: Avoid fried foods, chicken skin, eggs, butter margarine, pastries and meat. Be it pork or beef they have a lot of cholesterol LDL goal of less than 130 and triglyceride of less than 150. Patient on fenofibrate 54 mg once a day and atorvastatin 20 mg once a day (8) Hypogonadism in male: Code(s): E29.1 - Testicular hypofunction Plan: On testosterone gel November 2022 last blood work (9) Impacted cerumen of both ears: Code(s): H61.23 - Impacted cerumen, bilateral Orders: Orders Hemoglobin A1c 2 Months R73.02 - Impaired glucose tolerance (oral) Complete Blood Count Auto Diff 2 Months R73.02 - Impaired glucose tolerance (oral) Vitamin B12 and Folate 2 Months R73.02 - Impaired glucose tolerance (oral) Pneumococcal 20 Immunization Today Z23 - Encounter for immunization Lipid Panel 2 Months E78.00 - Pure hypercholesterolemia, unspecified, R73.02 - Impaired glucose tolerance (oral) Comprehensive Met. Panel 2 Months R73.02 - Impaired glucose tolerance (oral) Thyroid Stimulating Hormone 2 Months R73.02 - Impaired glucose tolerance (oral) Free T4 (Free Thyroxine) 2 Months R73.02 - Impaired glucose tolerance (oral) Coding Level of Care Code Est Pt Prev Care >65y(83028) Diagnoses Annual physical exam Z00.00 Arthritis of right knee M17.11 Arthritis of left knee M17.12 Essential hypertension I10 Hypertension type: essential hypertension Impaired glucose tolerance R73.02 Obesity (BMI 30-39.9) E66.9 Hypercholesterolemia E78.00 Hypogonadism in male E29.1 Impacted cerumen of both ears H61.23
== END 2023-04-26 11:12 | disposition home or self-care (01) ==
PROVIDERS: Visit Provider Internal Medicine
DX: Z00.00 Encounter for general adult medical examination without abnormal findings (principal); M17.0 Bilateral primary osteoarthritis of knee; I10 Essential (primary) hypertension; Z23 Encounter for immunization; R73.02 Impaired glucose tolerance (oral); E66.9 Obesity, unspecified; E78.00 Pure hypercholesterolemia, unspecified; E29.1 Testicular hypofunction; H61.23 Impacted cerumen, bilateral
CPT/HCPCS: 90471; 90677; 99397

== ENCOUNTER → 2023-05-20 10:14 | Outpatient (BNVA) | payer MEDICARE, OTHER, SELFPAY | PROVIDERS: PCP Internal Medicine; Visit Provider Orthopaedic Surgery ==

== ENCOUNTER 2023-06-28 07:40 | Outpatient (AMB) | payer MEDICARE, OTHER, SELFPAY ==
[2023-06-28 07:53] VITALS: BP 130/70; PULSE 68; O2SAT 98; BMI 35.3
--- NOTE | 2023-06-28 07:53 | A.OFFPC_ITS ---
Vital Signs 06/28/23 07:53 Height 5 ft 5 in Weight 212 lb BMI 35.3 BP 130/70 Blood Pressure Location Lt brachial Position Sitting Pulse 68 Pulse Source Pulse Oximeter Pulse Oximetry (%) 98 Oxygen Delivery Method Room Air Intake Visit Reasons: Right Total Knee Arthroplasty on 07/29/23 Allergies lisinopril Allergy (Intermediate, Verified 06/28/23 08:03) cough Medication List - Last Reconciled 06/28/23 by DOMENIC Hunter amitriptyline 10 mg PO BEDTIME amlodipine 5 mg PO DAILY 90 days atorvastatin 20 mg PO DAILY celecoxib (Celebrex) 200 mg PO DAILY PRN cholecalciferol (vitamin D3) 50 mcg PO DAILY cyanocobalamin (vitamin B-12) 1,000 mcg PO DAILY fenofibrate 54 mg PO DAILY fluticasone propionate 50 mcg/actuation 2 sprays intranasal DAILY folic acid 1 mg PO DAILY hydrochlorothiazide 25 mg PO DAILY omeprazole 20 mg PO DAILY testosterone (AndroGel) 4 pumps topical DAILY 30 days Tobacco use date assessed: 10/04/22 Fall risk assessment: No Falls in past year Last assessed Fall Risk: 06/28/23 Dental Screening Dental Screen Date: 06/28/23 Did you have a dental visit in the last 12 months?: Yes Did you have a dental problem in the last 6 months where you did not have access to dental care?: No Was dental information given to patient?: Patient has dentist HPI HPI Comments History of Present Illness Details 73-year-old male past medical history si gnificant for hypertension, impaired glucose tolerance, hypercholesteremia, headache and bilateral knee arthritis. Patient presents today for preop appointment for right total knee arthroplasty on 07/29/2023. under general anesthesia with Dr. Mccray. Patient denies previous complications to being under anesthesia in the past. Patient denies any chest pain, palpitations, shortness of breath and syncope. PT/iron added to previously ordered blood work. Preop EKG ordered. [facility] Medical History Prediabetes Headache Hypercholesterolemia Vitamin D deficiency Allergic rhinitis Obesity (BMI 30-39.9) Hypogonadism Anemia Impaired glucose tolerance Hypertension Surgical History History of colonoscopy Finger amputation, traumatic History of ankle surgery Family History Father Lung cancer Mother Diabetes Hypertension CVD (cardiovascular disease) Brother No problems noted. Social History (Updated 04/26/23 @ 10:45 by Sherly Hsieh MD) Housing: House Alcohol intake: current Alcohol intake frequency: holidays/special occasions o nly Alcohol type: beer Patient Tobacco Use Status: Former Tobacco user Tobacco use type: Cigarette Years Smoked: quit 1986 e-Cigarette/Vaping Use: Never Used Second Hand Smoke Exposure: No service: No Current occupational status: retired Cognitive needs: No Hearing needs: No Vision needs: Yes Questionnaire PHQ-9 Over the last 2 weeks, how often have you been bothered by any of the following problems? 1. Little interest or pleasure in doing things: not at all 2. Feeling down, depressed, or hopeless: not at all 3. Trouble falling or staying asleep, or sleeping too much: not at all 4. Feeling tired or having little energy: not at all 5. Poor appetite or overeating: not at all 6. Feeling bad about yourself - or that you are a failure or have let yourself or your family down: not at all 7. Trouble concentrating on things, such as reading the newspaper or watching television: not at all 8. Moving or speaking so slowly that other people could have noticed. Or the o pposite - being so fidgety or restless that you have been moving around a lot more than usual: not at all 9. Thoughts that you would be better off or of hurting yourself in some way: not at all Total score: 0 Depression Screening Interpretation: Negative Depression Screening Done: Yes 03270 - PHQ-9 Billing: Yes Source: Developed by Drs. Fantasma Rios, Emmie Moya, Bean San and colleagues, with an educational yvonne from [employer]. Thrive Questionnaire Date Thrive assessed: 10/04/22 AUDIT C Alcohol Use Questionnaire (AUDIT-C) 1. How often do you have a drink containing alcohol?: Monthly or less 2. How many drinks containing alcohol do you have on a typical day when you are drinking?: 1 or 2 3. How often do you have six or more drinks on one occasion?: Never Total Score: 1 Score Reviewed/Action Taken: No FIDELIA-7 AMB Questionnaire FIDELIA-7 Date FIDELIA - 7 assessed: 02/22/23 Source: Developed by Drs. Fantasma Rios, Emmie Moya, Bean San and colleagues, with an educational yvonne from [employer]. Review of Systems Const Denies chills, Denies fatigue, Denies fever(s) and Denies poor appetite Eyes Denies no additional complaints ENT Reports Normal hearing present Card Denies chest pain, Denies syncope, Denies rapid heart rate and Denies dyspnea Resp Denies cough and Denies dyspnea GI Denies change in stool character, Denies constipation, Denies diarrhea, Denies nausea and Denies vomiting Denies dysuria, Denies urinary frequency and Denies urinary urgency Neuro Reports Normal hearing present, Denies confusion and Denies syncope Psych Denies confusion Endo Denies fatigue Physical exam (Primary Care) Vital Signs: Last Vital Signs Pulse 68 06/28/23 07:53 BP 130/70 06/28/23 07:53 Pulse Ox 98 06/28/23 07:53 Oxygen Delivery Method Room Air 06/28/23 07:53 BMI result Body Mass Index 35.3 Tobacco/Smoking Status: Tobacco use Status Tobacco use date assessed 10/04/22 06/28/23 07:58 Patient Tobacco Use Status Former Tobacco user 06/28/23 07:58 Tobacco use type Cigarette 06/28/23 07:58 e-Cigarette/Vaping Use Never Used 06/28/23 07:58 PHQ-9: PHQ-9 Score PHQ-9: Total score 0 06/28/23 08:01 Depression Screening Interpretation: Negative Thrive Assessment: Date of Thrive Assessment Date Thrive assessed 10/04/22 06/28/23 07:58 Const General: No confusion Orientation/consciousness: No confusion HENMT Head: Yes normocephalic and Yes atraumatic Eyes Conjunctivae: conjunctivae normal Chest Chest palpation & inspection: normal inspection of the chest Resp Effort & Inspection: normal respiratory effort Auscultation: clear to auscultation bilaterally, no crackles, no rhonchi and no wheezes Cardio Rate: regular rate Rhythm: regular rhythm Heart sounds: S1 normal heart sound present and S2 normal heart sound present GI Inspection: Yes normal to inspection Neuro General: No confusion Cranial nerves: Yes Normal hearing present Extrem General: No edema Assessment and Plan Assessment & Plan (1) Preop examination: Code(s): Z01.818 - Encounter for other preprocedural examination Plan: Preop labs and EKG ordered, was reviewed addendum will be made to this note with patient able to proceed with schedule knee surgery. Patient advised to take amlodipine and hydrochlorothiazide with a small sip of water morning of procedure. Patient advised to hold Celebrex and any other blood thinning medication such as NSAIDs or aspirin 1 week prior to procedure. (2) Hypertension: Code(s): I10 - Essential (primary) hypertension Qualifiers: Hypertension type: essential hypertension Qualified Code(s): I10 - Essential (primary) hypertension Plan: Continue on current medication. Follow low-salt diet exercise. Blood pressure below goal in office today. (3) Hypercholesterolemia: Code(s): E78.00 - Pure hypercholesterolemia, unspecified Plan: Continue on atorvastatin. Follow low-cholesterol diet. Patient advised to get previously ordered fasting blood work completed. Plan Keep scheduled physical exam with PCP in 2 months or follow-up sooner if needed. Orders: Orders ECG 12 lead EKG Today Z01.810 - Encounter for preprocedural cardiovascular examination Prothrombin Time INR Today Z01.812 - Encounter for preprocedural laboratory examination Coding Level of Care Code Est Pt Level 3 (62879) Diagnoses Preop examination Z01.818 Essential hypertension I10 Hypertension type: essential hypertension Hypercholesterolemia E78.00
== END 2023-06-28 08:11 | disposition home or self-care (01) ==
PROVIDERS: PCP Internal Medicine; Visit Provider Nurse Practitioner Family
DX: Z01.818 Encounter for other preprocedural examination (principal); I10 Essential (primary) hypertension; E78.00 Pure hypercholesterolemia, unspecified
CPT/HCPCS: 99213

== ENCOUNTER 2023-06-28 08:16 | Outpatient (REF) | payer MEDICARE, OTHER, SELFPAY ==
--- NOTE | 2023-06-28 08:24 | ECG_ITS ---
Test Reason : preop Blood Pressure : / mmHG Vent. Rate : 068 BPM Atrial Rate : 068 BPM P-R Int : 178 ms QRS Dur : 078 ms QT Int : 410 ms P-R-T Axes : 057 014 044 degrees QTc Int : 435 ms Normal sinus rhythm Normal ECG When compared with ECG of 06-JUL-2008 14:59, No significant change was found Referred By: Skyla Chisholm Electronically Signed By:STEPHANIE MORGAN
== END 2023-06-28 08:17 | disposition home or self-care (01) ==
LOC: HO.LAB 08:16
PROVIDERS: Absent Provider Urology; PCP Internal Medicine; Visit Provider Internal Medicine
DX: Z01.810 Encounter for preprocedural cardiovascular examination (principal)
CPT/HCPCS: 93005

== ENCOUNTER → 2023-06-28 08:24 | Outpatient (BNV) | payer MEDICARE, OTHER, SELFPAY | PROVIDERS: Absent Provider Urology; PCP Internal Medicine; Visit Provider Internal Medicine | DX: I10 Essential (primary) hypertension (principal); Z01.818 Encounter for other preprocedural examination; M17.0 Bilateral primary osteoarthritis of knee | CPT/HCPCS: 93010 ==

== ENCOUNTER 2023-07-04 09:36 | Outpatient (AMB) | payer MEDICARE, OTHER, SELFPAY ==
--- NOTE | 2023-07-04 09:50 | MHC.OFFVIS ---
Intake Intake Visit Reasons: 6m/labs(set) Intake Note: Patient is Present for Follow Up LABS Urology Medication: Testosterone Antibiotic Allergies: None Blood Thinners: None Allergies lisinopril Allergy (Intermediate, Verified 06/28/23 08:03) cough HPI HPI Comments History of Present Illness Details Ck is a pleasant male. He is a patient of Dr. Hsieh. He is seen for the following urologic conditions - hypogonadism Current therapy AndroGel 4 pumps daily at target Labs within target Continue 6 month follow-up Hypogonadism: He presents today for follow-up of hypogonadism Review with labs in 6m. Initial symptoms include erectile dysfunction No decreased libido Yes change in mood/depression No in muscle size/strength No increased fatigue/malaise No increased abdominal fat No tender breasts/gynecomastia No hair loss No osteopenia No The onset of symptoms has been gradual. Associate conditions include obstructive sleep apnea No CAD No obesity No stress - financial, family, employment No heavy alcohol or illicit drug use No Laboratory results 02/05 , baseline, testosterone, low 136, , LH, low 1.3 04/08 , testosterone 179, , testosterone 198 10/07 T 220 04/09 T 300, PSA 0.4 12/08 T 300, PSA 0.36, Hct 38. 06/10 T 340 PSA 0.27 - 12/09 T 200, PSA 0.3, Hct 41%, 06/11 T 360 P 0.3 H39, 12/10 T 360 0.3 38, 06/12 T 300 F 60 H 40 P 0.28, 12/11 380 0.3, 07/13 300 0.4 42 Therapeutic plan Continue with medication PFSH Medical History Prediabetes Headache Hypercholesterolemia Vitamin D deficiency Allergic rhinitis Obesity (BMI 30-39.9) Hypogonadism Anemia Impaired glucose tolerance Hypertension Surgical History History of colonoscopy Finger amputation, traumatic History of ankle surgery Family History Father Lung cancer Mother Diabetes Hypertension CVD (cardiovascular disease) Brother No problems noted. Social History (Updated 04/26/23 @ 10:45 by Sherly Hsieh MD) Housing: House Alcohol intake: current Alcohol intake frequency: holidays/special occasions only Alcohol type: beer Patient Tobacco Use Status: Former Tobacco user Tobacco use type: Cigarette Years Smoked: 1986 e-Cigarette/Vaping Use: Never Used Second Hand Smoke Exposure: No service: No Current occupational status: retired Cognitive needs: No Hearing needs: No Vision needs: Yes Review of Systems Const Denies chills and Denies fever(s) Card Reports no additional complaints and Denies syncope Resp Denies cough GI Denies abdominal pain and Denies heartburn Reports as per HPI and Denies change in libido Neuro Denies syncope Psych Denies change in libido Endo Denies change in libido Physical Exam Const General: cooperative, healthy appearing, comfortable and no acute distress Orientation/consciousness: patient oriented x3 HEENT Face and sinus: Yes normal facial exam Mouth: moist mucous membranes Neck Neck: Yes normal visual inspection, Yes full ROM and Yes trachea midline Chest Chest palpation & inspection: normal inspection of the chest Resp Effort & Inspection: normal respiratory effort, able to speak in complete sentences and no respiratory distress GI Inspection: Yes normal to inspection Back/Spine/Pelvis Cervical Spine: normal cervical lordosis Thoracic/Lumbar Spine: thoracic and lumbar spine normal to inspection Skin General skin exam: no rashes or lesions noted Neuro General: patient oriented x3, gait normal, tone normal and moves all extremities Extrem General: Yes normal to inspection and Yes capillary refill normal Assessment & Plan Assessment & Plan (1) Hypogonadism in male: Code(s): E29.1 - Testicular hypofunction Plan Six month follow-up lab work Orders: Orders Prostate Specific Antigen 6 Months E29.1 - Testicular hypofunction Testosterone, Total 6 Months E29.1 - Testicular hypofunction Complete Blood Count no Diff 6 Months E29.1 - Testicular hypofunction Patient Instructions: Imaging studies, laboratory and physical exam results were discussed and reviewed in detail. No major barriers to patient understanding were identified. An opportunity to ask questions regarding the treatment plan was provided. All questions were answered. The patient expressed understanding and agreement with the above treatment plan. The patient is aware they should contact our office by phone for worsening of their current condition or the appearance of new urologic symptoms. Compliance is encouraged with any medications and followup testing that is ordered. It is a privilege to participate in the urologic care of your patient. If you have any questions or concerns regarding treatment for the above conditions, or other urologic issues, please do not hesitate to contact me. The office telephone contact is [phone]. This note is constructed using voice recognition software. While every effort has been made to ensure accuracy project account manager errors may have been included. Yours sincerely, Dr Lior Gil MD, [facility] - Urology Providers of Expert, Compassionate Care for the Genitourinary System Coding Level of Care Code Est Pt Level 3 (26998) Diagnoses Hypogonadism in male E29.1
== END 2023-07-04 09:59 | disposition home or self-care (01) ==
PROVIDERS: PCP Internal Medicine; Visit Provider Urology
DX: E29.1 Testicular hypofunction (principal)
CPT/HCPCS: 99213

== ENCOUNTER → 2023-07-04 09:36 | Outpatient (BNVA) | payer MEDICARE, OTHER, SELFPAY | PROVIDERS: PCP Internal Medicine; Visit Provider Urology | DX: E29.1 Testicular hypofunction (principal) | CPT/HCPCS: 99212 ==

== ENCOUNTER 2023-07-24 09:58 | Outpatient (AMB) | payer MEDICARE, OTHER, SELFPAY ==
--- NOTE | 2023-07-24 10:10 | MHC.OFFVIS ---
Intake Intake Visit Reasons: Preop RT TKA 07/29/23 DR Intake Note: Mr. Capone presents with bilateral knee pains, right greater than left. He describes his knee pains as sharp and severe in nature, 04/30. His pains have gotten worse over the last few years in spite of continued non treatment he has tried Tylenol and mellitus sick and which gave him minimal relief. He has also done physical therapy for 12 weeks over the last 6 months which aggravated his pain. He has had injections in the past which gave him minimal relief. The patient has difficulty walking even short distances because of his knee pains. At this point is right knee pain is interfering with his activities of daily living and his ability well through the night. Tankage Grinder Required: No Allergies lisinopril Allergy (Intermediate, Verified 07/24/23 10:10) cough Medication List - Last Reconciled 07/24/23 by Ron Mccray MD amitriptyline 10 mg PO BEDTIME amlodipine 5 mg PO DAILY 90 days atorvastatin 20 mg PO DAILY celecoxib (Celebrex) 200 mg PO DAILY PRN cholecalciferol (vitamin D3) 50 mcg PO DAILY cyanocobalamin (vitamin B-12) 1,000 mcg PO DAILY fenofibrate 54 mg PO DAILY fluticasone propionate 50 mcg/actuation 2 sprays intranasal DAILY PRN folic acid 1 mg PO DAILY hydrochlorothiazide 25 mg PO DAILY omeprazole 20 mg PO DAILY PRN testosterone (AndroGel) 4 pumps topical DAILY 30 days walker Folding front wheeled walker [facility] Medical History (Updated 07/19/23 @ 12:20 by Jolie Ferrara RN) Osteoarthritis Prediabetes Headache Hypercholesterolemia Vitamin D deficiency Allergic rhinitis Obesity (BMI 30-39.9) Hypogonadism Anemia Impaired glucose tolerance Hypertension Surgical History History of colonoscopy Finger amputation, traumatic History of ankle surgery Family History Father Lung cancer Mother Diabetes Hypertension CVD (cardiovascular disease) Brother No problems noted. Social History (Updated 07/19/23 @ 12:44 by Jolie Ferrara RN) Household Members: Family Housing: House Are you a primary hospice spiritual care coordinator to a significant other at home: No Do you presently have visiting nurse or other home services: No Alcohol intake: current Alcohol intake frequency: holidays/special occasions only Alcohol type: beer Comment: aware of trip Patient Tobacco Use Status: Former Tobacco user Quit Date: 1977 Tobacco use type: Cigarette e-Cigarette/Vaping Use: Never Used Second Hand Smoke Exposure: No Use of substances other than those prescribed or required for medical reasons: No service: No Current occupational status: retired Cognitive needs: No Hearing needs: No Vision needs: Yes Physical Exam Const Other: Well-nourished well-developed very friendly male awake alert and oriented x3 in no acute distress Lungs - clear to auscultation bilaterally with symmetric expansion Cardiovascular exam - regular rate and rhythm Abdominal exam - soft nontender nondistended Extrem Other: Bilateral lower extremity examination shows good capillary refill, no skin lesions noted, normal sensation light touch Right knee examination shows a minimal effusion, palpable crepitus with range of motion, pain with range of motion, range of motion from -3 degrees to 115 degrees, no instability Results Reviewed Results Reviewed: X-rays of the patient's right knee show severe grade 4 [id number] arthritis with subchondral sclerosis, osteophyte formation, no acute bony abnormalities Assessment & Plan Assessment & Plan (1) Arthritis of right knee: Code(s): M17.11 - Unilateral primary osteoarthritis, right knee Plan Mr. Capone presents with progressively worsening bilateral knee pains, right greater than left, due to end-stage degenerative joint disease. I had a lengthy discussion with the patient regarding the treatment options. At this point he has failed continued non operative treatments. The risks and benefits of right total knee replacement surgery were discussed at length with the patient. The patient wishes to proceed with surgery. manager technical services will be consulted following his surgery for home physical therapy and nursing. The patient will follow-up as instructed. Feel free to call me at any time should questions regarding his orthopedic management arise. I spent 22 minutes in reviewing the patient's records and imaging studies, seeing the patient and documenting in the medical record. Orders: Orders XR knee RT 1V Today M17.11 - Unilateral primary osteoarthritis, right knee Coding Level of Care Code Est Pt Level 2 (42014) Diagnoses Arthritis of right knee M17.11
== END 2023-07-24 10:34 | disposition home or self-care (01) ==
PROVIDERS: PCP Internal Medicine; Visit Provider Orthopaedic Surgery
DX: M17.0 Bilateral primary osteoarthritis of knee (principal)
CPT/HCPCS: 99213

== ENCOUNTER 2023-07-24 09:58 | Outpatient (REF) | payer MEDICARE, OTHER, SELFPAY ==
--- NOTE | ~2023-07-24 | XR_ITS ---
EXAMINATION: XR SINGLE LATERAL VIEW RIGHT KNEE CLINICAL INFORMATION: Unilateral primary osteoarthritis right knee. COMPARISON: 04/08/2023. TECHNIQUE: Single lateral view of the right knee. FINDINGS: Small posterior patellar osteophytes. Small joint effusion. Small superior and inferior patellar spurs. Faint calcifications in the soft tissues posteriorly are likely vascular. XR/XR knee RT 1V IMPRESSION: Small joint effusion. Mild degenerative changes.
== END 2023-07-24 09:59 | disposition home or self-care (01) ==
LOC: HO.HOSX 09:58
PROVIDERS: PCP Internal Medicine; Visit Provider Orthopaedic Surgery
DX: Z01.818 Encounter for other preprocedural examination (principal); M17.11 Unilateral primary osteoarthritis, right knee
CPT/HCPCS: 73560; 99212

== ENCOUNTER 2023-07-29 14:22 | Inpatient (IN) | payer MEDICARE, OTHER, SELFPAY ==
[2023-06-28 08:48] LABS: MANUAL DIFF FLAG NO
[2023-06-28 10:01] LABS: Basophils Percent Auto 0.4 % (0-2); Eosinophils Absolute Auto 0.1 X10*3/uL (0.0-0.4); Eosinophils Percent Auto 1.6 % (0-4); Hematocrit 42.1 % (42.0-52.0); Hemoglobin 13.5 g/dl (14.0-18.0); Imm Gran Abs Auto 0.02 X10*3/uL (0.00-0.03); Imm Gran Pct Auto 0.3 % (0.0-0.4); Lymphocytes Percent Auto 38.9 % (20-40); Mean Corpuscular HGB Conc 32.1 g/dl (31.0-36.0); Mean Corpuscular Hemoglobin 28.3 pg (27.0-33.0); Mean Corpuscular Volume 88.3 fL (80.0-98.0); Mean Platelet Volume 11.7 fL (9.4-12.4); Monocytes Absolute Auto 0.7 X10*3/uL (0.1-1.2); Monocytes Percent Auto 9.2 % (2-11); Neutrophils Absolute Auto 3.8 x10*3/uL (2.0-8.3); Neutrophils Percent Auto 49.6 % (45-73); Platelet Count 246 X10*3/uL (160-400); Red Blood Count 4.77 X10*6/uL (4.60-5.80); Red Cell Distribution Width 13.1 % (11.0-16.0); White Blood Count 7.7 X10*3/uL (4.8-10.8)
[2023-06-28 10:02] LABS: INTERNATIONAL NORM RATIO 0.9 (0.9-1.1)
[2023-06-28 10:08] LABS: Estimated Average Glucose 126 mg/dL
[2023-06-28 10:54] LABS: Alanine Aminotransferase 18 U/L (0-40); Albumin Level 4.4 g/dL (3.5-5.0); Alkaline Phosphatase 66 U/L (39-117); Anion Gap 12 (12-20); Aspartate Amino Transferase 18 U/L (5-37); Bilirubin Total 0.6 mg/dL (0.0-1.0); Blood Urea Nitrogen 22 mg/dL (9-16); Calcium 9.7 mg/dL (8.4-10.2); Carbon Dioxide 28 mmol/L (22-29); Chloride 109 mmol/L (96-108); Cholesterol 151 mg/dL (<200); Estimated Glomerular Filt Rate > 60; Glucose Random 107 mg/dL (60-115); HDL Cholesterol 39 mg/dL (>40); LDL Cholesterol Calculated 92 mg/dL (<100); Sodium 145 mmol/L (135-145); Total Protein 7.7 g/dL (6.5-8.0); Triglycerides 104 mg/dL (<150)
[2023-06-28 11:08] LABS: Prostate Specific Antigen 0.39 ng/mL (<0.05-4.0)
[2023-06-28 11:18] LABS: Folate 14.6 ng/mL (> or = 4.0); Vitamin B12 1593 pg/mL (200-900)
[2023-06-28 11:27] LABS: Free T4 (Free Thyroxine) 0.96 ng/dL (0.71-1.85); Thyroid Stimulating Hormone 1.06 uIU/mL (0.32-4.0)
[2023-07-02 18:35] LABS: Testosterone, Total 293 ng/dL (250-1100)
[2023-07-19 11:52] VITALS: BMI 34.2
[2023-07-19 12:05] VITALS: BP 130/70; PULSE 81; RESP 16; O2SAT 98
--- NOTE | 2023-07-19 12:39 | HO.ANESPROP2 ---
Documented by User: Tiffany Hernandez NP 07/25/23 15:01 HPI - Anesthesia Eval Consult details Narrative: 73yo M for Right Knee Replacement Total, 07/29/23 PCP cleared No recent illness No CP/SOB with golf PMFSH Active Problems Active Problems: All Active Problems (Updated 07/19/23 @ 12:20 by Jolie Ferrara, RAJNI) Impacted cerumen of both ears (Acute) Arthritis of right knee (Acute) Arthritis of left knee (Acute) Pes anserine bursitis (Acute) Annual physical exam (Acute) Epigastric abdominal pain (Acute) Abdominal pain (Acute) RLQ abdominal pain (Acute) Adult general medical exam (Acute) Hypogonadism in male (Acute) Headache (Acute) Hypercholesterolemia (Acute) Obesity (BMI 30-39.9) (Acute) Impaired glucose tolerance (Acute) Hypertension (Acute) Past Medical History Medical History Osteoarthritis Prediabetes Headache Hypercholesterolemia Vitamin D deficiency Allergic rhinitis Obesity (BMI 30-39.9) Hypogonadism Anemia Impaired glucose tolerance Hypertension Family History Family History Father Lung cancer Mother Diabetes Hypertension CVD (cardiovascular disease) Brother No problems noted. Family history of problems with anesthesia: No Surgical History Surgical History History of colonoscopy Finger amputation, traumatic History of ankle surgery History of Problems with Anesthesia: No Social History Social History Household Members: Family Housing: House Are you a primary healthcare manager to a significant other at home: No Do you presently have visiting nurse or other home services: No Alcohol intake: current Alcohol intake frequency: holidays/special occasions only Alcohol type: beer Comment: aware of trip Patient Tobacco Use Status: Former Tobacco user Quit Date: 1977 Tobacco use type: Cigarette e-Cigarette/Vaping Use: Never Used Second Hand Smoke Exposure: No Use of substances other than those prescribed or required for medical reasons: No Have you been hit, kicked, punched, or otherwise hurt by someone within the past year? If so, by whom?: No Spiritual Healthcare Practices: none Restorationism Healthcare Practices: none Cultural Healthcare Practices: none Are you DNR?: No Advance Directives: No Advance Directives Information Provided: Yes Advance Directives on File: No Recently lost weight without trying: No Nutrition Risks: No Nutritional Risk service: No Current occupational status: retired Cognitive needs: No Hearing needs: No Vision needs: Yes Meds Allergies Allergy/AdvReac Type Severity Reaction Status Date / Time lisinopril Allergy Intermediate cough Verified 07/29/23 08:10 Home Medications Medication Instructions Recorded Confirmed Last Taken Type hydrochlorothiazide 25 mg tablet 25 mg PO DAILY 06/13/20 07/24/23 Unknown History fluticasone propionate 50 2 spray intranasal DAILY PRN 07/19/23 07/24/23 Unknown History mcg/actuation nasal Allergy Symptoms spray,suspension omeprazole 20 mg capsule,delayed 20 mg PO DAILY PRN Gastric Reflux 07/19/23 07/24/23 Unknown History release Exam Height,Weight and Vital Signs: Height 5 ft 6.5 in Weight 97.522 kg Last Vital Signs Pulse 81 07/19/23 12:05 Resp 16 07/19/23 12:05 BP 130/70 07/19/23 12:05 Pulse Ox 98 07/19/23 12:05 O2 Del Method Room Air 07/19/23 12:05 Pertinent Lab Results Pertinent Lab Results: Laboratory Tests 06/28/23 08:46 WBC 7.7 RBC 4.77 Hgb 13.5 L Hct 42.1 MCV 88.3 MCH 28.3 MCHC 32.1 RDW 13.1 Plt Count 246 MPV 11.7 Immature Gran % (Auto) 0.3 Neut % (Auto) 49.6 Lymph % (Auto) 38.9 [place] % (Auto) 9.2 Eos % (Auto) 1.6 Baso % (Auto) 0.4 Lymph # (Auto) 3.0 [place] # (Auto) 0.7 Eos # (Auto) 0.1 Baso # (Auto) 0.0 Abs Immat Gran (auto) 0.02 Absolute Neuts (auto) 3.8 Absolute Nucleated RBC 0.000 Nucleated RBC % (auto) 0.0 PT 11.0 L INR 0.9 Sodium 145 Potassium 4.0 Chloride 109 H Carbon Dioxide 28 Anion Gap 12 BUN 22 H Creatinine 1.04 Estim Creat Clear Calc TNP Estimated GFR > 60 Random Glucose 107 Estimat Average Glucose 126 Hemoglobin A1c % 6.0 Calcium 9.7 D Total Bilirubin 0.6 AST 18 ALT 18 Alkaline Phosphatase 66 Total Protein 7.7 Albumin 4.4 Triglycerides 104 Cholesterol 151 LDL Cholesterol, Calc 92 HDL Cholesterol 39 L Prostate Specific Ag 0.39 Vitamin B12 1593 H Folate 14.6 TSH 1.06 Free T4 0.96 Total Testosterone 293 Narrative Narrative: EKG 06/2023 Vent. Rate : 068 BPM Atrial Rate : 068 BPM P-R Int : 178 ms QRS Dur : 078 ms QT Int : 410 ms P-R-T Axes : 057 014 044 degrees QTc Int : 435 ms Normal sinus rhythm Normal ECG When compared with ECG of 06-JUL-2008 14:59, No significant change was found Airway Mallampati Class: III TM Dist: >3cm Neck ROM: Full Denture: Upper and Lower Heart: RRR Lungs: CTAB Assessment and Plan Assessment Anesthesia Assessment: Anesthesia Plan Discussed and PAT Visit Final Anesthetic Review Family History of Problems with Anesthesia: No History of Problems with Anesthesia: No Documented by User: Cecilia De Leon MD 07/29/23 09:25 PMFSH Past Medical History Medical History Osteoarthritis Prediabetes Headache Hypercholesterolemia Vitamin D deficiency Allergic rhinitis Obesity (BMI 30-39.9) Hypogonadism Anemia Impaired glucose tolerance Hypertension Family History Family History Father Lung cancer Mother Diabetes Hypertension CVD (cardiovascular disease) Brother No problems noted. Surgical History Surgical History History of colonoscopy Finger amputation, traumatic History of ankle surgery Social History Social History Household Members: Family Housing: House Are you a primary healthcare manager to a significant other at home: No Do you presently have visiting nurse or other home services: No Alcohol intake: current Alcohol intake frequency: holidays/special occasions only Alcohol type: beer Comment: aware of trip Patient Tobacco Use Status: Former Tobacco user Quit Date: 1977 Tobacco use type: Cigarette e-Cigarette/Vaping Use: Never Used Second Hand Smoke Exposure: No Use of substances other than those prescribed or required for medical reasons: No Have you been hit, kicked, punched, or otherwise hurt by someone within the past year? If so, by whom?: No Spiritual Healthcare Practices: none Restorationism Healthcare Practices: none Cultural Healthcare Practices: none Are you DNR?: No Advance Directives: No Advance Directives Information Provided: Yes Advance Directives on File: No Recently lost weight without trying: No Nutrition Risks: No Nutritional Risk service: No Current occupational status: retired Cognitive needs: No Hearing needs: No Vision needs: Yes Meds Allergies Allergy/AdvReac Type Severity Reaction Status Date / Time lisinopril Allergy Intermediate cough Verified 07/29/23 08:10 Home Medications Medication Instructions Recorded Confirmed Last Taken Type hydrochlorothiazide 25 mg tablet 25 mg PO DAILY 06/13/20 07/24/23 Unknown History fluticasone propionate 50 2 spray intranasal DAILY PRN 07/19/23 07/24/23 Unknown History mcg/actuation nasal Allergy Symptoms spray,suspension omeprazole 20 mg capsule,delayed 20 mg PO DAILY PRN Gastric Reflux 07/19/23 07/24/23 Unknown History release Assessment and Plan Assessment Anesthesia Assessment: Chart Reviewed Final Anesthetic Review NPO: Yes ASA Class: III Final Preanesthetic Review: No Changes in Pt Med Stat, Meds/Allgs Chart Reviewed, Consent Obtained/Reviewed and Anes Risks/Benef Reviewed Patient Risk: Intermediate Procedure Risk: Intermediate Anesthetic Plan Anesthetic Plan: MAC:, Spinal and Regional Block Disposition: Standard PACU
[2023-07-19 14:19] LABS: MRSA Nasal PCR NEGATIVE (Negative); SA Nasal PCR NEGATIVE (Negative)
[2023-07-29] VITALS (12 sets, daily range): BP systolic 94–162; BP diastolic 47–79; PULSE 65–89; RESP 15–18; TEMP 36.3–36.8; O2SAT 95–99
--- NOTE | 2023-07-29 14:07 | PHA.MEDREC ---
Pharmacy Consult ? Medication Reconciliation Pharmacy has completed the medication reconciliation. Reviewed med rec done by nursing
--- NOTE | 2023-07-29 14:08 | PM.OP ---
Brief Operative Note Date of Service: 07/29/23 Pre-op diagnosis: Right knee degenerative joint disease Post-op diagnosis: same Procedure: Right total knee arthroplasty Implants: [place] [employer] cemented posterior stabilized total knee arthroplasty with a femoral component size 5 right, tibial component size 5, polyethylene liner size 5 with 9 mm of thickness, an asymmetric patellar component size 32 with 10 mm of thickness Surgeon: Ron Mccray MD Anesthesia: spinal Was an Title Department Manager used for this Procedure?: Yes Title Department Manager: Alaina López Estimated blood loss (mL): 200 Pathology: other (Bony fragments from the right femur, tibia and patella) Condition: stable Disposition: PACU
--- NOTE | 2023-07-29 14:31 | W.PM.OPN ---
Operative Note Operative Note Date of Service: 07/29/23 Narrative: After the patient was identified as Ck Capone and his right knee was initialed by myself the patient was brought to the holding area where a right leg nerve block was performed by the anesthesiologist in routine fashion. The patient was then brought to the operating room where conscious sedation and spinal anesthesia were performed by the anesthesiologist in routine fashion. The patient was given 2 g of IV Ancef preoperatively for infection prophylaxis. The patient's right lower extremity was prepped and draped in sterile fashion. A formal time-out was completed. The patient's right knee was placed onto a small bump to produce 30? of knee flexion during exposure. A #10 scalpel blade was used to make a midline incision extending 1 handbreadth proximal and distal to the patella. A second #10 scalpel blade was used to dissect the subcutaneous tissues down to the extensor mechanism. The subcutaneous flaps were maintained as thick as possible. A medial parapatellar arthrotomy was then performed using a #10 scalpel blade. The arthrotomy was begun just medial to the patellar tendon. The arthrotomy was continued 1 cm medial to the patella and then 5 mm into the medial aspect of the quadriceps tendon. The infrapatellar fat pad was partially excised to help with exposure. The soft tissue retinaculum was raised one-half of the way around the medial aspect of the proximal tibia. The patella was everted and the knee was flexed to 90?. There was no injury to the patellar tendon or its insertion onto the tibial tubercle. A drill bit was introduced into the distal aspect of the femur with a starting point 1 cm anterior to the origin of the posterior cruciate ligament. The intramedullary alignment jayne was put into place. The distal alignment guide was set for a 5 degree valgus cut. The distal cutting block was put into place and was held with 4 pins. The intramedullary alignment jayne was removed. Soft tissues were retracted in the distal femoral cut was made using a sagittal saw. The distal aspect of the femur measured to be a size 5 right component. Two drill holes were placed into the distal aspect of the femur marking 3? of external rotation. The distal cutting block was impacted into place and was held with 2 pins. Soft tissues were retracted and the 4 distal femoral cuts were made using a sagittal saw. Final notching and drilling of the distal aspect of the femur were performed in routine fashion. The trial femoral component was impacted into place. The knee was taken through a full range of motion. The patella tracked well. The patella was everted and the knee was flexed to 90?. The trial component was removed and our attention was directed to the proximal tibia. The medial and lateral menisci were removed using a #10 scalpel blade. A small rim of the medial meniscus was left intact to help prevent injury to the medial collateral ligament. A drill bit was then introduced into the proximal tibia with a starting point midway from medial to lateral and one-third of the way posteriorly. The intramedullary alignment jayne was put into place. The proximal tibial cutting guide was placed over the alignment jayne in line with the 2nd toe. The guide was held in place using 3 pins. The intramedullary alignment jayne was removed. Soft tissues were retracted and the proximal tibial cut was made using a sagittal saw. The proximal tibia measured to be a size 5 component. The tibial tray was put into place with a 9 mm liner. The femoral component was impacted into place. The knee was taken through a full range of motion. There was full flexion and full extension. There was no instability with varus or valgus stress testing with the knee in flexion or extension. The patella tracked well with no medially directed force. The rotation of the tibial tray was marked using electrocautery with the knee in extension. The patella was everted and the knee was flexed to 90?. All trial components were removed. The tibial tray was placed onto the proximal tibia in line with the electrocautery bertha. The tray was held in place using 3 pins. Final broaching of the proximal tibia was performed in routine fashion. The trial liner and trial femoral component were put into place. The knee was brought into extension and our attention was directed to the patella. The patella measured 25 mm in thickness. The patellar resection guide was set for a 10 mm resection. Soft tissues were retracted and the patella cut was made using a sagittal saw. The remaining patella measured 15 mm in thickness. The undersurface of the patella was measured to be a size 32 asymmetric component. Three drill holes were placed into the undersurface of the patella in routine fashion. The trial component was put into place. The knee was taken through a full range of motion. The patella tracked well. The patella was everted and the knee was flexed to 90?. All trial components were removed. The knee was once again brought into extension and placed onto a small bump. The knee joint was irrigated with copious amounts of normal saline solution via pulse lavage while the cement was mixed. The patella was everted and the knee was flexed to 90?. A small amount of cement was placed along the posterior aspects of the tibial and femoral components. Cement was then pressurized into the proximal tibia. The tibial component was impacted into place. Any excess cement was removed. The polyethylene liner was then impacted into place. Cement was then pressurized into the distal aspect of the femur. A small amount of cement was placed into the intramedullary canal to help reduce bleeding. The femoral component was impacted into place. Any excess cement was removed. The knee was then brought into extension. Cement was pressurized into the undersurface of the patella. The patellar component was put into place and was held with a patella clamp. Any excess cement was removed. Once the cement had hardened the patellar clamp was removed. The knee was taken through a full range of motion. There was full flexion and extension. There was no instability with varus or valgus stress testing with the knee in flexion or extension. The patella tracked well with no medially directed force. The knee joint was irrigated with copious amounts of normal saline solution via pulse lavage. Any significant bleeding vessels were coagulated. The patient's right knee was placed onto a small bump. The arthrotomy was closed with #2 Ethibond [id number] interrupted suture as well as #1 Vicryl [id number] interrupted suture. The wound was once again irrigated. The subcutaneous tissues were closed with 0 Vicryl and 2-0 Vicryl interrupted sutures. The skin was closed with skin supa. Dry sterile dressing and Michael bandages were placed over the patient's right knee. The patient was awake and alert. The patient was transferred to the recovery room in stable condition.
[2023-07-29] MEDS: HYDROmorphone HCl 0.5 MG/0.5 ML SYRINGE IVPUSH ×2 (16:24→20:16)
[2023-07-29] MEDS: methocarbamoL 500 MG TABLET PO ×2 (17:27→20:15)
[2023-07-29] MEDS: oxyCODONE HCl Immed Release 5 MG TABLET 10 MG PO ×2 (17:27→21:37)
[2023-07-29] MEDS: Aspirin 325 MG TABLET PO ×2 (17:28→20:15)
[2023-07-29] MEDS: Amitriptyline HCl 10 MG TABLET PO (20:15)
[2023-07-29] MEDS: oxyCODONE HCl ER 10 MG TAB.ER.12H PO (20:15)
[2023-07-29] MEDS: Docusate Sodium 100 MG CAPSULE PO (20:15)
[2023-07-29] MEDS: Celecoxib 200 MG CAPSULE PO (20:16)
[2023-07-29] MEDS: Gabapentin 100 MG CAPSULE PO (20:16)
[2023-07-29] MEDS: Acetaminophen 325 MG TABLET 650 MG PO (21:37)
[2023-07-30] VITALS (8 sets, daily range): BP systolic 127–147; BP diastolic 67–75; PULSE 81–96; RESP 14–19; TEMP 36–37.1; O2SAT 92–97
[2023-07-30] MEDS: oxyCODONE HCl Immed Release 5 MG TABLET 10 MG PO ×3 (02:30→13:59)
[2023-07-30 06:02] LABS: MANUAL DIFF FLAG NO
[2023-07-30 06:18] LABS: Anion Gap 10 (12-20); Blood Urea Nitrogen 15 mg/dL (9-16); Calcium 8.4 mg/dL (8.4-10.2); Carbon Dioxide 24 mmol/L (22-29); Chloride 109 mmol/L (96-108); Creatinine Clr Calc Pharmacy 82.3; Estimated Glomerular Filt Rate > 60; Glucose Fasting 149 mg/dL (60-99); Potassium 3.7 mmol/L (3.3-5.1); Sodium 139 mmol/L (135-145)
[2023-07-30 06:32] LABS: Basophils Percent Auto 0.2 % (0-2); Eosinophils Percent Auto 0.1 % (0-4); Hematocrit 32.8 % (42.0-52.0); Imm Gran Abs Auto 0.05 X10*3/uL (0.00-0.03); Imm Gran Pct Auto 0.4 % (0.0-0.4); Lymphocytes Absolute Auto 1.7 X10*3/uL (1.2-4.9); Lymphocytes Percent Auto 13.6 % (20-40); Mean Corpuscular HGB Conc 33.5 g/dl (31.0-36.0); Mean Corpuscular Hemoglobin 29.3 pg (27.0-33.0); Mean Corpuscular Volume 87.5 fL (80.0-98.0); Mean Platelet Volume 11.7 fL (9.4-12.4); Monocytes Absolute Auto 1.4 X10*3/uL (0.1-1.2); Monocytes Percent Auto 11.1 % (2-11); Neutrophils Absolute Auto 9.4 x10*3/uL (2.0-8.3); Neutrophils Percent Auto 74.6 % (45-73); Platelet Count 194 X10*3/uL (160-400); Red Blood Count 3.75 X10*6/uL (4.60-5.80); Red Cell Distribution Width 12.8 % (11.0-16.0); White Blood Count 12.6 X10*3/uL (4.8-10.8)
--- NOTE | 2023-07-30 07:39 | P.PNOP_ITS ---
Subjective Subjective Date of Service: 07/30/23 Interval history: POD 1 s/p RT TKA no overnight events he is resting at the edge of the bed pain is tolerable denies cp,palpitations, sob Physical Exam Vital Signs: Vital Signs: Last Vital Signs Temp 98.0 F 07/30/23 03:11 Pulse 90 07/30/23 03:11 Resp 17 07/30/23 03:11 BP 127/70 07/30/23 03:11 Pulse Ox 96 07/30/23 03:11 O2 Del Method Room Air 07/30/23 03:11 BMI result Body Mass Index 34.2 Const: General: cooperative, healthy appearing and no acute distress Resp: Effort & Inspection: normal respiratory effort and able to speak in complete sentences Cardio: Rate: regular rate Peripheral pulses: Peripheral pulses 2+ throughout GI: Palpation (GI): Soft to palpation Skin: General skin exam: no rashes or lesions noted Extrem: Other: bandage clean dry and intact. [place] intact. No erythema or joint effusion. Calf supple nontender. Neurovascularly intact. Procedures Date of Service Date of Service: 07/30/23 Progress Note: A&P Assessment and plan (1) Status post total right knee replacement: Status: Acute Assessment and Plan: * Continue pain mgmnt * Begin Aspirin for dvt ppx * begin PT for RT TKA * Dispo planning-Pending PT eval, pain mgmnt Need for continued inpatient stay: physical therapy clearance Time Spent With Patient Time: Total time managing care of this patient today ____ minutes. Quality Stroke Does the patient have a stroke diagnosis?: No VTE Prior VTE?: No VTE Risk Level:: Surgical - very high VTE Device Contraindication: N/A - Device Ordered VTE Drug Contraindication: N/A - Med Ordered
[2023-07-30] MEDS: Aspirin 325 MG TABLET PO ×2 (08:24→20:56)
[2023-07-30] MEDS: oxyCODONE HCl ER 10 MG TAB.ER.12H PO ×2 (08:24→20:56)
[2023-07-30] MEDS: Celecoxib 200 MG CAPSULE PO ×2 (08:24→20:56)
[2023-07-30] MEDS: Cyanocobalamin (Vitamin B-12) 1,000 MCG TABLET 1000 MCG PO (08:24)
[2023-07-30] MEDS: Cholecalciferol (Vitamin D3) 25 MCG TABLET 50 MCG PO (08:24)
[2023-07-30] MEDS: methocarbamoL 500 MG TABLET PO ×3 (08:24→21:09)
[2023-07-30] MEDS: Fenofibrate 54 MG TABLET PO (08:24)
[2023-07-30] MEDS: Folic Acid 1 MG TABLET PO (08:25)
[2023-07-30] MEDS: amLODIPine Besylate 5 MG TABLET PO (08:25)
[2023-07-30] MEDS: Docusate Sodium 100 MG CAPSULE PO ×2 (08:25→20:57)
[2023-07-30] MEDS: Atorvastatin Calcium 20 MG TABLET PO (08:25)
--- NOTE | 2023-07-30 09:19 | P.CONHOSP_ITS ---
History of Present Illness Data of Consult Service Date: 07/30/23 Primary Care Provider: Sherly Hsieh MD [facility] Reason for consult: medical evaluation 73-year-old male past medical history significant for hypertension, impaired glucose tolerance, hypercholesteremia, headache and bilateral knee osteoarthritis who underwent left knee replacement 07/29/23 and doing well post operatively. Has no chest pain, no sob, no dizzness. Review of Systems 2 Review of Systems: Gen: no fever Resp: no sob, no cough CV: no chest, no POLLOCK, no leg edema GI: No n/v, no abd pain Neuro: No confusion Yes all other systems are reviewed and are negative [facility] Medical History Osteoarthritis Prediabetes Headache Hypercholesterolemia Vitamin D deficiency Allergic rhinitis Obesity (BMI 30-39.9) Hypogonadism Anemia Impaired glucose tolerance Hypertension Family History Father Lung cancer Mother Diabetes Hypertension CVD (cardiovascular disease) Brother No problems noted. Surgical History History of colonoscopy Finger amputation, traumatic History of ankle surgery Social History Household Members: Family Housing: House Are you a primary date night caregiver to a significant other at home: No Do you presently have visiting nurse or other home services: No Alcohol intake: current Alcohol intake frequency: holidays/special occasions only Alcohol type: beer Comment: aware of trip Patient Tobacco Use Status: Former Tobacco user Quit Date: 1977 Tobacco use type: Cigarette e-Cigarette/Vaping Use: Never Used Second Hand Smoke Exposure: No Use of substances other than those prescribed or required for medical reasons: No Currently Displaying Signs/Symptoms of Drug Intoxication Withdrawal: No Have you been hit, kicked, punched, or otherwise hurt by someone within the past year? If so, by whom?: No Spiritual Healthcare Practices: none Tenriism Healthcare Practices: none Cultural Healthcare Practices: none Are you DNR?: No Advance Directives: No Advance Directives Information Provided: Yes Advance Directives on File: No Recently lost weight without trying: No Nutrition Risks: No Nutritional Risk service: No Current occupational status: retired Cognitive needs: No Hearing needs: No Vision needs: Yes Meds Allergies Allergy/AdvReac Type Severity Reaction Status Date / Time lisinopril Allergy Intermediate cough Verified 07/29/23 08:10 Active Medications: Current Medications Acetaminophen (Acetaminophen 325 Mg Tablet) 650 mg PO Q6H PRN PRN Reason: Pain, Mild (Pain Scale 1-3) Last Admin: 07/29/23 21:37 Dose: 650 mg Amitriptyline HCl (Amitriptyline Hcl 10 Mg Tablet) 10 mg PO BEDTIME [facility] Last Admin: 07/29/23 20:15 Dose: 10 mg Amlodipine Besylate (Amlodipine Besylate 5 Mg Tablet) 5 mg PO DAILY [facility]; Protocol Last Admin: 07/30/23 08:25 Dose: 5 mg Aspirin (Aspirin 325 Mg Tablet) 325 mg PO BID [facility] Last Admin: 07/30/23 08:24 Dose: 325 mg Atorvastatin Calcium (Atorvastatin Calcium 20 Mg Tablet) 20 mg PO DAILY [facility] Last Admin: 07/30/23 08:25 Dose: 20 mg Celecoxib (Celecoxib 200 Mg Capsule) 200 mg PO BID [facility] Last Admin: 07/30/23 08:24 Dose: 200 mg Cyanocobalamin (Cyanocobalamin (Vitamin B-12) 1,000 Mcg Tablet) 1,000 mcg PO DAILY [facility] Last Admin: 07/30/23 08:24 Dose: 1,000 mcg Docusate Sodium (Docusate Sodium 100 Mg Capsule) 100 mg PO BID [facility] Last Admin: 07/30/23 08:25 Dose: 100 mg Fenofibrate (Fenofibrate 54 Mg Tablet) 54 mg PO DAILY [facility] Last Admin: 07/30/23 08:24 Dose: 54 mg Fluticasone Propionate (Fluticasone Propionate Nasal 16 Gm Boaz) 2 spray NOSTRIL-B DAILY PRN PRN Reason: Allergy Symptoms Folic Acid (Folic Acid 1 Mg Tablet) 1 mg PO DAILY [facility] Last Admin: 07/30/23 08:25 Dose: 1 mg Gabapentin (Gabapentin 100 Mg Capsule) 100 mg PO BEDTIME [facility] Last Admin: 07/29/23 20:16 Dose: 100 mg Hydromorphone HCl (Hydromorphone Hcl 0.5 Mg/0.5 Ml Syringe) 0.25 mg IVPUSH Q4H PRN; Protocol PRN Reason: Pain, Severe (Pain Scale 7-10) Hydromorphone HCl (Hydromorphone Hcl 0.5 Mg/0.5 Ml Syringe) 0.5 mg IVPUSH Q4H PRN; Protocol PRN Reason: Pain, Severe (Pain Scale 7-10) Last Admin: 07/29/23 20:16 Dose: 0.5 mg Lactated Ringer's (Lr) 1,000 mls @ 100 mls/hr IVCONT .Q10H [facility] Last Admin: 07/30/23 02:27 Dose: 100 mls/hr Cefazolin Sodium 2 gm/ Sodium (Chloride) 100 mls @ 200 mls/hr IV Q8H [facility] Stop: 07/30/23 15:59 Last Infusion: 07/30/23 08:15 Dose: Infused Methocarbamol (Methocarbamol 500 Mg Tablet) 500 mg PO TID [facility] Last Admin: 07/30/23 08:24 Dose: 500 mg Non-Formulary Medication (Testosterone [Androgel]) 4 pump TOPICAL DAILY [facility] Omeprazole (Omeprazole 20 Mg Capsule.Dr) 20 mg PO DAILY PRN PRN Reason: Gastric Reflux Ondansetron HCl (Ondansetron Hcl 4 Mg/2 Ml Vial) 4 mg IVPUSH Q8H PRN PRN Reason: Nausea and Vomiting Oxycodone HCl (Oxycodone Hcl Immed Release 5 Mg Tablet) 5 mg PO Q4H PRN PRN Reason: Pain, Moderate(Pain Scale 4-6) Oxycodone HCl (Oxycodone Hcl Er 10 Mg Tab.Er.12h) 10 mg PO BID [facility] Last Admin: 07/30/23 08:24 Dose: 10 mg Oxycodone HCl (Oxycodone Hcl Immed Release 5 Mg Tablet) 10 mg PO Q4H PRN PRN Reason: Pain, Moderate(Pain Scale 4-6) Last Admin: 07/30/23 07:35 Dose: 10 mg Sodium Chloride (0.9 % Sodium Chloride Flush 3 Ml Syringe) 3 ml IVFLUSH QSHIFT [facility] Last Admin: 07/30/23 08:31 Dose: Not Given Vitamin D (Cholecalciferol (Vitamin D3) 25 Mcg Tablet) 50 mcg PO DAILY [facility] Last Admin: 07/30/23 08:24 Dose: 50 mcg Home Medications Medication Instructions Recorded Confirmed Last Taken Type hydrochlorothiazide 25 mg tablet 25 mg PO DAILY 06/13/20 07/24/23 Unknown History fluticasone propionate 50 2 spray intranasal DAILY PRN 07/19/23 07/24/23 Unknown History mcg/actuation nasal Allergy Symptoms spray,suspension omeprazole 20 mg capsule,delayed 20 mg PO DAILY PRN Gastric Reflux 07/19/23 07/24/23 Unknown History release Physical Exam 2 Vital Signs and Narrative: Vital Signs: Last Vital Signs Temp 96.8 F 07/30/23 07:52 Pulse 89 07/30/23 08:29 Resp 14 07/30/23 07:52 BP 136/75 07/30/23 08:29 Pulse Ox 97 07/30/23 08:29 O2 Del Method Room Air 07/30/23 07:52 BMI result Body Mass Index 34.2 Const: Other: General: AO X 3, no acute distress Resp: CTA bilateral CVS: S1,S2,RRR GI: +BS, NT, no distention Skin: No rash, left knee dressing intact Neuro: motor grossly intact Psych: appropriate affect Results Labs 07/30/23 05:46 07/30/23 05:46 Labs: Laboratory Results - last 24 hr 07/30/23 05:46 MCV 87.5 MCH 29.3 MCHC 33.5 RDW 12.8 Plt Count 194 MPV 11.7 Immature Gran % (Auto) 0.4 Neut % (Auto) 74.6 H Lymph % (Auto) 13.6 L [place] % (Auto) 11.1 H Eos % (Auto) 0.1 Baso % (Auto) 0.2 Lymph # (Auto) 1.7 [place] # (Auto) 1.4 H Eos # (Auto) 0.0 Baso # (Auto) 0.0 Abs Immat Gran (auto) 0.05 H Absolute Neuts (auto) 9.4 H Absolute Nucleated RBC 0.000 Nucleated RBC % (auto) 0.0 Anion Gap 10 L Estim Creat Clear Calc 82.3 Estimated GFR > 60 Fasting Glucose 149 H Calcium 8.4 D Assessment and Plan (1) Hypercholesterolemia: Status: Acute (2) Obesity (BMI 30-39.9): Status: Acute (3) Hypertension: Qualifiers: Hypertension type: essential hypertension Qualified Code(s): I10 - Essential (primary) hypertension Status: Acute (4) Impaired glucose tolerance: Status: Acute Plan 73-year-old male past medical history significant for hypertension, impaired glucose tolerance, hypercholesteremia, headache and bilateral knee arthritis s/p Right TKA and doing well. Plan s/p TKR managment per ortho HTN controlled on home meds HLD, lipitor/fenofibrate Mood desorder, continue elavil Mild Leukocytosis--likely reactive, follow Pre diabetes hemoglobin A1C 6, FBS 149, SSI, POCs Thanks, signing off and will follow on PRN basis
[2023-07-30 11:43] LABS: Glucose, Whole Blood 159 mg/dL (60-115)
[2023-07-30] MEDS: Insulin Lispro 100 UNIT/ML 3 ML VIAL SUBCUT (12:13)
--- NOTE | 2023-07-30 13:07 | MHC.CM.PN ---
pt lives with is independent has own ride home is agreeable to home pt thru [facility] when dcd
--- NOTE | 2023-07-30 14:55 | HO.POSTANES ---
Post Anesthesia Evaluation Post Anesthesia Evaluation Date of Service: 07/30/23 Vital Signs: Vital Signs Temp Pulse Resp BP Pulse Ox O2 Del Method 07/30/23 13:57 85 142/74 H 96 07/30/23 12:00 96.8 F 85 14 142/74 H 96 Room Air 07/30/23 08:29 89 136/75 97 07/30/23 07:52 96.8 F 89 14 136/75 97 Room Air 07/30/23 03:11 98.0 F 90 17 127/70 96 Room Air Anesthesia: Spinal and Nerve Block Mental Status: Awake Pain Control: Satisfactory Nausea/Vomiting: None Hydration: Adequate Anesthesia-Related Issues: No Anes. Related Issues
--- NOTE | 2023-07-30 15:00 | PM.DS ---
DS: Providers Provider Date of Service: 07/31/23 Date of admission: 07/29/23 14:22 Primary care physician: Sherly Hsieh MD Consults: 07/29/23 15:50 Consult to Hospitalist Routine Comment: Consulting Provider: Hospitalist Reason For Exam: routine medical management DS: Diagnosis Discharge Diagnosis (1) Hypercholesterolemia: Status: Acute (2) Obesity (BMI 30-39.9): Status: Acute (3) Hypertension: Status: Acute (4) Impaired glucose tolerance: Status: Acute DS: Summary Hospital Course Hospital Course: The patient underwent a successful right total knee arthroplasty, they were transferred to PACU and then to the floor to recover. During their stay, their vitals were stable, afebrile at 97.8. Labs were unremarkable, H/H 11.0/32.8. POD 1 they were started on Aspirin 325mg po bid for DVT ppx, they also received Physical Therapy services twice a day. Prior to discharge, their dressing was clean dry and intact, and the plan was to be discharged home with VNA services. Time Attestation Discharge coordination time: Less than 30 minutes Quality: Safe Use of Opioids Does Pt have an Active Cancer Diagnosis on the Problem List?: No Quality: Stroke Does the patient have a stroke diagnosis?: No Physical Exam Vital Signs: Vital Signs: Last Vital Signs Temp 96.8 F 07/30/23 12:00 Pulse 85 07/30/23 13:57 Resp 14 07/30/23 12:00 BP 142/74 H 07/30/23 13:57 Pulse Ox 96 07/30/23 13:57 O2 Del Method Room Air 07/30/23 12:00 BMI result Body Mass Index 34.2 Const: General: cooperative, healthy appearing and no acute distress Resp: Effort & Inspection: normal respiratory effort and able to speak in complete sentences Cardio: Rate: regular rate Peripheral pulses: Peripheral pulses 2+ throughout GI: Palpation (GI): Soft to palpation Skin: General skin exam: no rashes or lesions noted Extrem: Other: Right knee bandage clean dry and intact. Gloria intact. No erythema or joint effusion. Calf supple nontender. Neurovascularly intact. DS: Data Data Completed and Pending Pending studies at discharge: Pending at discharge 07/29/23 11:51 Surgical [PTH] Routine Labs on day of discharge: Laboratory Results - last 24 hr 07/30/23 07/30/23 05:46 11:26 WBC 12.6 H RBC 3.75 L D Hgb 11.0 L Hct 32.8 L D MCV 87.5 MCH 29.3 MCHC 33.5 RDW 12.8 Plt Count 194 MPV 11.7 Immature Gran % (Auto) 0.4 Neut % (Auto) 74.6 H Lymph % (Auto) 13.6 L [place] % (Auto) 11.1 H Eos % (Auto) 0.1 Baso % (Auto) 0.2 Lymph # (Auto) 1.7 [place] # (Auto) 1.4 H Eos # (Auto) 0.0 Baso # (Auto) 0.0 Abs Immat Gran (auto) 0.05 H Absolute Neuts (auto) 9.4 H Absolute Nucleated RBC 0.000 Nucleated RBC % (auto) 0.0 Sodium 139 Potassium 3.7 Chloride 109 H Carbon Dioxide 24 Anion Gap 10 L BUN 15 Creatinine 0.86 Estim Creat Clear Calc 82.3 Estimated GFR > 60 POC Glucose 159 H Fasting Glucose 149 H Calcium 8.4 D Discharge Plan Discharge Anticipated Discharge Date/Time: 07/31/23 11:59 Patient Disposition: Home Health Service Discharge Diagnosis: s/p RTKA Referrals: Alaina López PA-C [Physician Extrusion Line Operator] - 08/15/23 1:15 pm Discharge Medications: New celecoxib 200 mg Capsule 200 mg PO BID 30 Days Qty: 60 0RF methocarbamol 500 mg Tablet 500 mg PO TID 7 Days Qty: 21 0RF acetaminophen 325 mg Tablet 650 mg PO Q6H PRN (Reason: Pain, Mild (Pain Scale 1-3)) 30 Days Qty: 240 0RF aspirin 325 mg Tablet 325 mg PO BID 42 Days Qty: 84 0RF docusate sodium 100 mg Capsule 100 mg PO BID 30 Days Qty: 60 0RF gabapentin 100 mg Capsule 100 mg PO BEDTIME 7 Days Qty: 7 0RF oxycodone 5 mg Tablet 5 mg PO Q4H PRN (Reason: Pain, Moderate(Pain Scale 4-6)) 7 Days Qty: 42 0RF Rx Instructions: Partial Fill upon patient request. Continued cyanocobalamin (vitamin B-12) 1,000 mcg capsule 1,000 mcg PO DAILY Qty: 90 3RF folic acid 1 mg tablet 1 mg PO DAILY Qty: 90 3RF amlodipine 5 mg tablet 5 mg PO DAILY 90 Days Qty: 90 3RF fenofibrate 54 mg tablet 54 mg PO DAILY Qty: 90 3RF atorvastatin 20 mg tablet 20 mg PO DAILY Qty: 90 3RF cholecalciferol (vitamin D3) 50 mcg (2,000 unit) capsule 50 mcg PO DAILY Qty: 90 3RF (DME) walker Misc See Rx Instructions .ROUTE .MEDSUPPLY Qty: 1 0RF Rx Instructions: Folding front wheeled walker omeprazole 20 mg capsule,delayed release(DR/EC) 20 mg PO DAILY PRN (Reason: Gastric Reflux) fluticasone propionate 50 mcg/actuation spray,suspension 2 spray intranasal DAILY PRN (Reason: Allergy Symptoms) Rx Instructions: administer into each nostril hydrochlorothiazide 25 mg tablet 25 mg PO DAILY amitriptyline 10 mg tablet 10 mg PO BEDTIME Qty: 90 2RF testosterone [AndroGel] 20.25 mg/1.25 gram (1.62 %) gel in metered-dose pump 4 pump topical DAILY 30 Days Qty: 150 5RF Rx Instructions: apply 2 pump amount over max area of EACH upper arm and shoulder - 4 total per day Discontinued celecoxib [Celebrex] 200 mg capsule 200 mg PO DAILY PRN (Reason: pain) Qty: 30 3RF Discharge Orders: Discharge Order (Routine); Ordered 07/31/23 Ordered By: Alaina López Diet: Advance to usual diet Activity on Discharge: Use cane or walker Stand Alone Forms: Patient Portal Discharge page Activity Restrictions/Additional Instructions: Physical Therapy for ROM 0-120, quad strength, gait training. Use walker for ambulation Limit stair climbing, No shower, No tub bath, No driving Continue anticoagulant Keep Aquacel dressing clean, dry and intact. Follow up with orthopedics in 2 weeks Care Plan Goals: restore fxn to right knee Health Concerns: None Plan of Treatment: Physical Therapy for ROM 0-120, quad strength, gait training. Use walker for ambulation Limit stair climbing, No shower, No tub bath, No driving Continue anticoagulant Keep Aquacel dressing clean, dry and intact. Follow up with orthopedics in 2 weeks Assessment: stable for discharge
--- NOTE | 2023-07-30 15:01 | W.MHC.F2F ---
Service Date Service Date: 07/30/23 Encounter Date of encounter: 07/31/23 Reasons for Services Signs and symptoms assessed: s/p RTKA. Pt. is considered homebound due to recent surgery. Unable to drive, poor balance, poor gait mechanics. Reason for physical therapy: home safety and mobility, therapeutic exercises, restore joint function, gait/transfer training, assess need for DME and ADL training Homebound: Leaving the home is medically contraindicated at this time without the asist of a device and/or another person due th the listed conditions above and below. Reason homebound: unsteady gait / fall risk, leg weakness, pain with ambulation, pain with transfers, poor balance / fall risk and unable to drive Certification: Based on the above findings, I certify that this patient is confined to the home and needs intermittent longterm care, physical therapy and/or speech therapy, or continues to need occupational therapy. The patient is under my care, and I have initiated the establishment of the plan of care. The patient will be followed by a physician who will periodically review the plan of care. Time Spent With Patient Time: Total time managing care of this patient today ____ minutes.
[2023-07-30 16:28] LABS: Glucose, Whole Blood 132 mg/dL (60-115)
[2023-07-30 20:09] LABS: Glucose, Whole Blood 128 mg/dL (60-115)
[2023-07-30] MEDS: Amitriptyline HCl 10 MG TABLET PO (20:57)
[2023-07-30] MEDS: Gabapentin 100 MG CAPSULE PO (20:57)
[2023-07-31] MEDS: oxyCODONE HCl Immed Release 5 MG TABLET 10 MG PO ×3 (01:01→11:30)
[2023-07-31 03:13] VITALS: BP 136/65; PULSE 83; RESP 18; TEMP 36.6; O2SAT 93
[2023-07-31 07:16] LABS: Glucose, Whole Blood 132 mg/dL (60-115)
[2023-07-31 07:28] VITALS: BP 166/77; PULSE 86; RESP 14; TEMP 36.1; O2SAT 92
[2023-07-31 07:32] LABS: Basophils Percent Auto 0.2 % (0-2); Eosinophils Absolute Auto 0.1 X10*3/uL (0.0-0.4); Eosinophils Percent Auto 0.5 % (0-4); Hematocrit 28.9 % (42.0-52.0); Hemoglobin 9.5 g/dl (14.0-18.0); Imm Gran Abs Auto 0.05 X10*3/uL (0.00-0.03); Imm Gran Pct Auto 0.4 % (0.0-0.4); Lymphocytes Absolute Auto 1.7 X10*3/uL (1.2-4.9); Lymphocytes Percent Auto 14.1 % (20-40); MANUAL DIFF FLAG SCAN; Mean Corpuscular HGB Conc 32.9 g/dl (31.0-36.0); Mean Corpuscular Hemoglobin 28.7 pg (27.0-33.0); Mean Corpuscular Volume 87.3 fL (80.0-98.0); Mean Platelet Volume 12.1 fL (9.4-12.4); Monocytes Absolute Auto 1.5 X10*3/uL (0.1-1.2); Monocytes Percent Auto 12.6 % (2-11); Neutrophils Absolute Auto 8.7 x10*3/uL (2.0-8.3); Neutrophils Percent Auto 72.2 % (45-73); Platelet Count 177 X10*3/uL (160-400); Red Blood Count 3.31 X10*6/uL (4.60-5.80); Red Cell Distribution Width 13.2 % (11.0-16.0); SCAN SMEAR FLAG 1; White Blood Count 12.1 X10*3/uL (4.8-10.8)
[2023-07-31 07:39] LABS: Anion Gap 13 (12-20); Blood Urea Nitrogen 21 mg/dL (9-16); Calcium 8.7 mg/dL (8.4-10.2); Carbon Dioxide 22 mmol/L (22-29); Chloride 109 mmol/L (96-108); Creatinine Clr Calc Pharmacy 78.7; Estimated Glomerular Filt Rate > 60; Glucose Fasting 113 mg/dL (60-99); Potassium 3.4 mmol/L (3.3-5.1); Sodium 141 mmol/L (135-145)
[2023-07-31 08:27] VITALS: BP 166/77; PULSE 86; O2SAT 92
[2023-07-31] MEDS: Atorvastatin Calcium 20 MG TABLET PO (08:37)
[2023-07-31] MEDS: oxyCODONE HCl ER 10 MG TAB.ER.12H PO (08:37)
[2023-07-31] MEDS: Celecoxib 200 MG CAPSULE PO (08:37)
[2023-07-31] MEDS: Cholecalciferol (Vitamin D3) 25 MCG TABLET 50 MCG PO (08:38)
[2023-07-31] MEDS: Aspirin 325 MG TABLET PO (08:38)
[2023-07-31] MEDS: Docusate Sodium 100 MG CAPSULE PO (08:38)
[2023-07-31] MEDS: Fenofibrate 54 MG TABLET PO (08:38)
[2023-07-31] MEDS: Folic Acid 1 MG TABLET PO (08:38)
[2023-07-31] MEDS: methocarbamoL 500 MG TABLET PO (08:38)
[2023-07-31] MEDS: amLODIPine Besylate 5 MG TABLET PO (08:38)
[2023-07-31] MEDS: Cyanocobalamin (Vitamin B-12) 1,000 MCG TABLET 1000 MCG PO (08:38)
[2023-07-31 09:02] LABS: SLIDE REVIEW VERIFIED
[2023-07-31 11:37] VITALS: BP 158/75; PULSE 92; RESP 16; TEMP 36.4; O2SAT 95
[2023-07-31 11:38] LABS: Glucose, Whole Blood 122 mg/dL (60-115)
== END 2023-07-31 12:19 | disposition home health service (06) | DRG 470 ==
LOC: HO.SSSA 14:23 → HO.S3 15:23
PROVIDERS: Nurse Practitioner; Nurse Practitioner Family; Physician Assistant; Urology; Admitting Provider Orthopaedic Surgery; PCP Internal Medicine; Visit Provider Orthopaedic Surgery
PROC: 0SRC0J9 Replacement of Right Knee Joint with Synthetic Substitute, Cemented, Open Approach (ICD-10-PCS; CPT 27447; principal; 2023-07-29 10:10)
DX: M17.11 Unilateral primary osteoarthritis, right knee (principal); G89.18 Other acute postprocedural pain; I10 Essential (primary) hypertension; E78.00 Pure hypercholesterolemia, unspecified; E66.9 Obesity, unspecified; Z68.34 Body mass index [BMI] 34.0-34.9, adult; Z87.891 Personal history of nicotine dependence; Z79.82 Long term (current) use of aspirin; Z79.899 Other long term (current) drug therapy
CPT/HCPCS: 27447; 36415; 80048; 80053; 80061; 82607; 82746; 82947; 83036; 84153; 84403; 84439; 84443; 85025; 85610; 86850; 86900; 86901; 87640; 87641; 88305; 88311; 97110; 97116; 97162; 99024; C1776; J0131; J0665; J0690; J1170; J2250; J2371; J2704; J3370; J7120

== ENCOUNTER → 2023-07-29 14:22 | Outpatient (BNV) | payer MEDICARE, OTHER, SELFPAY | PROVIDERS: Admitting Provider Orthopaedic Surgery; PCP Internal Medicine; Visit Provider Internal Medicine | DX: E78.00 Pure hypercholesterolemia, unspecified (principal); I10 Essential (primary) hypertension; R73.02 Impaired glucose tolerance (oral); E66.9 Obesity, unspecified; Z68.34 Body mass index [BMI] 34.0-34.9, adult | CPT/HCPCS: 99222 ==

== ENCOUNTER → 2023-07-29 14:22 | Outpatient (BNV) | payer MEDICARE, OTHER, SELFPAY | PROVIDERS: Admitting Provider Orthopaedic Surgery; PCP Internal Medicine; Visit Provider Orthopaedic Surgery | DX: Z47.1 Aftercare following joint replacement surgery (principal); Z96.651 Presence of right artificial knee joint | CPT/HCPCS: 27447; 99024; G0180 ==

== ENCOUNTER 2023-08-15 12:19 | Outpatient (AMB) | payer MEDICARE, OTHER, SELFPAY ==
--- NOTE | 2023-08-15 13:05 | A.OFFVIS_ITS ---
Intake Intake Visit Reasons: PO-RT TKA 07/29/23 Intake Note: Ck is a 73 year old male who presents today for a post op right TKA 07/29/23 . Patient reports he is doing well, mild discomfort around the incision area. He states that he is having some numbness around his phoenix. Allergies lisinopril Allergy (Intermediate, Verified 08/15/23 13:07) cough HPI PO-RT TKA 07/29/23 DR 2 HPI Details 73-year-old male who presents in the off ice today 17 days status post right total knee arthroplasty, which was performed on 07/29/[address] Mccray. The patient reported he is doing well with mild discomfort around the incision site. He reports some numbness around the phoenix. He states he takes Tylenol during the day and one Oxycodone at night. Patient reports his last session of in home physical therapy was yesterday, 08/14/2023. [facility] Medical History Osteoarthritis Prediabetes Headache Hypercholesterolemia Vitamin D deficiency Allergic rhinitis Obesity (BMI 30-39.9) Hypogonadism Anemia Impaired glucose tolerance Hypertension Surgical History History of colonoscopy Finger amputation, traumatic History of ankle surgery Family History Father Lung cancer Mother Diabetes Hypertension CVD (cardiovascular disease) Brother No problems noted. Social History Household Members: Family Housing: House Are you a primary manager career to a significant other at home: No Do you presently have visiting nurse or other home services: No Alcohol intake: current Alcohol intake frequency: holidays/special occasions only Alcohol type: beer Comment: aware of trip Patient Tobacco Use Status: Former Tobacco user Quit Date: 1977 Tobacco use type: Cigarette e-Cigarette/Vaping Use: Never Used Second Hand Smoke Exposure: No service: No Current occupational status: retired Cognitive needs: No Hearing needs: No Vision needs: Yes Review of Systems Const All systems reviewed & are unremarkable except as noted in HPI and below Physical Exam Const General: cooperative, healthy appearing and no acute distress Resp Effort & Inspection: normal respiratory effort and able to speak in complete sentences Cardio Rate: regular rate Peripheral pulses: Peripheral pulses 2+ throughout GI Palpation (GI): Soft to palpation Skin Lesions: no lesions Rashes: no rashes Extrem Other: Right knee: Incision site is clean, dry, and intact. Gloria intact. No surrounding erythema or drainage. No signs of infection. ROM is 5-100 degrees. NVI. Assessment & Plan Assessment & Plan (1) Status post total right knee replacement: Onset Date: ~07/29/23 Comment: Dr. Ron Mccray Code(s): Z96.651 - Presence of right artificial knee joint Plan Mr. Capone is a 73-year-old male who presents in the office today 17 days status post right total knee arthroplasty, which was performed on 07/29/[address] Mccray. The patient reported he is doing well with mild discomfort around the incision site. He reports some numbness around the phoenix. He states he takes Tylenol during the day and one Oxycodone at night. Patient reports his last session of in home physical therapy was yesterday, 08/14/2023. Gloria were removed and steri-stripes were applied. He will transition to out patient physical therapy. I have sent in a refill for Oxycodone 5 mg PO Q6H PRN for pain. I sent a prescription for antibiotics, prophylactically for possible dental work in the future. However, the patient was educated they should not have any major dental work for the first 3 months post op after the right total knee arthroplasty. Follow up will be in [address] Mccray, or sooner if needed. Orders: Orders PT Evaluation and Treatment Today Z96.651 - Presence of right artificial knee joint Medications: New amoxicillin 2,000 mg (4 x 500 mg) PO ONCE 4 tabs 0RF take 4 tabs by mouth 1 hour prior to dental ppx 1 day Changed From oxycodone Partial Fill upon patient request. 5 mg PO Q4H 7 days PRN 42 tabs 0RF Pain, Moderate(Pain Scale 4-6) To oxycodone Partial Fill upon patient request. 5 mg PO Q6H PRN 28 tabs 0RF Pain, Moderate(Pain Scale 4-6) 7 days Patient Instructions: Scribed for Alaina López PA-C by Skyla Rodeen, quality engineer medical device, on 08/12/2023 at 12:22 pm, EST. Coding Level of Care Code Global (99847) Diagnoses Status post total right knee replacement Z96.651
== END 2023-08-15 14:11 | disposition home or self-care (01) ==
PROVIDERS: PCP Internal Medicine; Visit Provider Physician Assistant
DX: Z96.651 Presence of right artificial knee joint (principal)
CPT/HCPCS: 99024

== ENCOUNTER → 2023-08-15 12:19 | Outpatient (BNVA) | payer MEDICARE, OTHER, SELFPAY | PROVIDERS: PCP Internal Medicine; Visit Provider Physician Assistant | DX: Z47.1 Aftercare following joint replacement surgery (principal); Z96.651 Presence of right artificial knee joint | CPT/HCPCS: 99212 ==

== ENCOUNTER 2023-09-17 13:37 | Outpatient (AMB) | payer MEDICARE, OTHER, SELFPAY ==
--- NOTE | 2023-09-17 13:39 | MHC.OFFVIS ---
Intake Intake Visit Reasons: PO-RT TKA 07/29/23 Intake Note: Ck is a 73 year old male who presents today for a post op right TKA 07/29/23 . Patient reports he is still a little sore but much better. He states that he has some numbness on the outside of his knee and he is going to physical therapy and it is going well. The patient states that his right knee still feels weak and will give out at times. He would like to return to playing golf as soon as possible. Allergies lisinopril Allergy (Intermediate, Verified 09/17/23 13:46) cough Medication List - Last Reconciled 09/17/23 by Ron Mccray MD acetaminophen 650 mg (2 x 325 mg) PO Q6H PRN 30 days amitriptyline 10 mg PO BEDTIME amlodipine 5 mg PO DAILY 90 days amoxicillin 2,000 mg (4 x 500 mg) PO ONCE 1 day aspirin 325 mg PO BID 42 days atorvastatin 20 mg PO DAILY celecoxib 200 mg PO BID 30 days cholecalciferol (vitamin D3) 50 mcg PO DAILY cyanocobalamin (vitamin B-12) 1,000 mcg PO DAILY docusate sodium 100 mg PO BID 30 days fenofibrate 54 mg PO DAILY fluticasone propionate 50 mcg/actuation 2 sprays intranasal DAILY PRN folic acid 1 mg PO DAILY gabapentin 100 mg PO BEDTIME 7 days hydrochlorothiazide 25 mg PO DAILY methocarbamol 500 mg PO TID 7 days omeprazole 20 mg PO DAILY PRN oxycodone 5 mg PO Q6H PRN 7 days testosterone (AndroGel) 4 pumps topical DAILY 30 days walker Folding front wheeled walker [facility] Medical History Osteoarthritis Prediabetes Headache Hypercholesterolemia Vitamin D deficiency Allergic rhinitis Obesity (BMI 30-39.9) Hypogonadism Anemia Impaired glucose tolerance Hypertension Surgical History History of colonoscopy Finger amputation, traumatic History of ankle surgery Family History Father Lung cancer Mother Diabetes Hypertension CVD (cardiovascular disease) Brother No problems noted. Social History Household Members: Family Housing: House Are you a primary intensive care unit registered nurse to a significant other at home: No Do you presently have visiting nurse or other home services: No Alcohol intake: current Alcohol intake frequency: holidays/special occasions only Alcohol type: beer Comment: aware of trip Patient Tobacco Use Status: Former Tobacco user Quit Date: 1977 Tobacco use type: Cigarette e-Cigarette/Vaping Use: Never Used Second Hand Smoke Exposure: No service: No Current occupational status: retired Cognitive needs: No Hearing needs: No Vision needs: Yes Physical Exam Extrem Other: Right knee examination shows that the surgical incision is well healed, no erythema, range of motion from -3 degrees to 115 degrees, his patella tracks well, 4/5 strength with quadriceps testing Assessment & Plan Assessment & Plan (1) Status post total right knee replacement: Onset Date: ~07/29/23 Comment: Dr. Ron Mccray Code(s): Z96.651 - Presence of right artificial knee joint Plan Mr. Capone continues to do well after undergoing right total knee replacement surgery on 07/29/2023. He does remain somewhat weak. His knee does give out at times. Thus, I had him fitted for a knee brace to help with his stability. I do feel that the knee brace is a medical necessity to help prevent future falls. Does know to take antibiotics before any dental work. He will contact me prior to his follow-up appointment in 2 months should any questions or concerns arise. Feel free to call me at any time should questions regarding his orthopedic management arise. Coding Level of Care Code Global (47632) Diagnoses Status post total right knee replacement Z96.651
== END 2023-09-17 14:08 | disposition home or self-care (01) ==
PROVIDERS: PCP Internal Medicine; Visit Provider Orthopaedic Surgery
DX: Z96.651 Presence of right artificial knee joint (principal)
CPT/HCPCS: 99024

== ENCOUNTER → 2023-09-17 13:37 | Outpatient (BNVA) | payer MEDICARE, OTHER, SELFPAY | PROVIDERS: PCP Internal Medicine; Visit Provider Orthopaedic Surgery | DX: Z47.1 Aftercare following joint replacement surgery (principal); Z96.651 Presence of right artificial knee joint | CPT/HCPCS: 99212 ==

== ENCOUNTER 2023-10-28 09:30 | Outpatient (AMB) | payer MEDICARE, OTHER, SELFPAY ==
--- NOTE | 2023-10-28 09:32 | MHC.PC.OV ---
Vital Signs 10/28/23 09:33 Height 5 ft 5 in Weight 217 lb BMI 36.1 BP 144/78 H Blood Pressure Location Lt brachial Position Sitting Pulse 81 Pulse Source Pulse Oximeter Pulse Oximetry (%) 98 Oxygen Delivery Method Room Air Intake Visit Reasons: Hypertension Allergies lisinopril Allergy (Intermediate, Verified 10/28/23 09:33) cough Medication List - Last Reconciled 10/28/23 by Sherly Hsieh MD acetaminophen 650 mg (2 x 325 mg) PO Q6H PRN 30 days amitriptyline 10 mg PO BEDTIME amlodipine 5 mg PO DAILY 90 days amoxicillin 2,000 mg (4 x 500 mg) PO ONCE 1 day aspirin 325 mg PO BID 42 days atorvastatin 20 mg PO DAILY celecoxib 200 mg PO BID 30 days cholecalciferol (vitamin D3) 50 mcg PO DAILY cyanocobalamin (vitamin B-12) 1,000 mcg PO DAILY docusate sodium 100 mg PO BID 30 days fenofibrate 54 mg PO DAILY fluticasone propionate 50 mcg/actuation 2 sprays intranasal DAILY PRN folic acid 1 mg PO DAILY gabapentin 100 mg PO BEDTIME 7 days hydrochlorothiazide 25 mg PO DAILY methocarbamol 500 mg PO TID 7 days omeprazole 20 mg PO DAILY PRN oxycodone 5 mg PO Q6H PRN 7 days testosterone (AndroGel) 4 pumps topical DAILY 30 days walker Folding front wheeled walker Tobacco use date assessed: 10/28/23 Fall risk assessment: No Falls in past year Last assessed Fall Risk: 10/28/23 Dental Screening Dental Screen Date: 10/28/23 Did you have a dental visit in the last 12 months?: Yes Did you have a dental problem in the last 6 months where you did not have access to dental care?: No Was dental information given to patient?: Patient has dentist HPI Hypertension HPI Details 73-year-old obese male with hypertension hypercholesterolemia last seen in June 2023 preop for knee surgery patient is coming in for follow-up. Colon test is up-to-date 2014 right knee replacement done July 2023 patient was fitted with a knee brace help with stability. Patient is very happy with the surgery doing good with no nausea no vomiting no bowel bladder symptoms no shortness a breath right knee still sore but much better. No lower extremity swelling. Concern now on the left knee and will be talking with the ortho again. [facility] Medical History (Updated 10/28/23 @ 09:58 by Sherly Hsieh MD) Hypercholesterolemia Obesity (BMI 30-39.9) Impaired glucose tolerance Hypertension Headache Adult general medical exam RLQ abdominal pain Pes anserine bursitis Annual physical exam Epigastric abdominal pain Abdominal pain Osteoarthritis Prediabetes Vitamin D deficiency Allergic rhinitis Hypogonadism Anemia Surgical History History of colonoscopy Finger amputation, traumatic History of ankle surgery Family History Father Lung cancer Mother Diabetes Hypertension CVD (cardiovascular disease) Brother No problems noted. Social History Household Members: Family Housing: House Are you a primary hourly caregiver to a significant other at home: No Do you presently have visiting nurse or other home services: No Alcohol intake: current Alcohol intake frequency: holidays/special occasions only Alcohol type: beer Comment: aware of trip Patient Tobacco Use Status: Former Tobacco user Quit Date: 1977 Tobacco use type: Cigarette e-Cigarette/Vaping Use: Never Used Second Hand Smoke Exposure: No service: No Current occupational status: retired Cognitive needs: No Hearing needs: No Vision needs: Yes Questionnaire PHQ-9 Over the last 2 weeks, how often have you been bothered by any of the following problems? 1. Little interest or pleasure in doing things: not at all 2. Feeling down, depressed, or hopeless: not at all 3. Trouble falling or staying asleep, or sleeping too much: not at all 4. Feeling tired or having little energy: not at all 5. Poor appetite or overeating: not at all 6. Feeling bad about yourself - or that you are a failure or have let yourself or your family down: not at all 7. Trouble concentrating on things, such as reading the newspaper or watching television: not at all 8. Moving or speaking so slowly that other people could have noticed. Or the opposite - being so fidgety or restless that you have been moving around a lot more than usual: not at all 9. Thoughts that you would be better off or of hurting yourself in some way: not at all Total score: 0 Depression Screening Interpretation: Negative Depression Screening Done: Yes 03966 - PHQ-9 Billing: Yes Source: Developed by Drs. Fantasma Rios, Emmie Moya, Bean San and colleagues, with an educational yvonne from [employer]. Thrive Questionnaire Date Thrive assessed: 10/28/23 I am a: Patient What is your living situation today?: I have a steady place to live Within the past 12 months, did the food you bought not last and you didn't have the money to get more?: Never true Within the past 12 months, did you worry whether your food would run out before you got money to buy more?: Never true Do you have trouble paying for medicines?: No Do you have trouble getting transportation to medical appointments?: No Do you have trouble paying your heating and electricity bill?: No Do you have trouble taking care of your child, family member or friend?: No Do you have trouble with day-to-day activities such as bathing, preparing meals, shopping, managing finances, etc.?: No Are you currently unemployed and looking for a job?: No Are you interested in more education?: No Currently or been in a relationship where the following occur: no concerns reported THRIVE Score: 0 AUDIT C Alcohol Use Questionnaire (AUDIT-C) 1. How often do you have a drink containing alcohol?: Monthly or less 2. How many drinks containing alcohol do you have on a typical day when you are drinking?: 1 or 2 3. How often do you have six or more drinks on one occasion?: Never Total Score: 1 Score Reviewed/Action Taken: No FIDELIA-7 AMB Questionnaire FIDELIA-7 Date FIDELIA - 7 assessed: 10/28/23 Feeling nervous, anxious, or on edge: 0 = Not at all Not being able to stop or control worryin = Not at all Worrying too much about different things: 0 = Not at all Trouble relaxin = Not at all Being so restless that it is hard to sit still: 0 = Not at all Becoming easily annoyed or irritable: 0 = Not at all Feeling afraid as if something awful might happen: 0 = Not at all Total FIDELIA-7 score (0-4 normal; 5-9 mild; 10-14 moderate; 15-21 severe): 0 Source: Developed by Emmie Mahmood.W. Griffin, Bean San and colleagues, with an educational yvonne from [employer]. Physical exam (Primary Care) Vital Signs: Last Vital Signs Pulse 81 10/28/23 09:33 BP 144/78 H 10/28/23 09:33 Pulse Ox 98 10/28/23 09:33 Oxygen Delivery Method Room Air 10/28/23 09:33 BMI result Body Mass Index 36.1 Tobacco/Smoking Status: Tobacco use Status Tobacco use date assessed 10/28/23 10/28/23 09:42 Patient Tobacco Use Status Former Tobacco user 10/28/23 09:42 Tobacco use type Cigarette 10/28/23 09:42 e-Cigarette/Vaping Use Never Used 10/28/23 09:42 PHQ-9: PHQ-9 Score PHQ-9: Total score 0 10/28/23 09:43 Depression Screening Interpretation: Negative Thrive Assessment: Date of Thrive Assessment Date Thrive assessed 10/28/23 10/28/23 09:42 Currently or been in a relationship where the following occur: no concerns reported Const General: alert; No acute distress Eyes Conjunctivae: conjunctivae normal Resp Auscultation: clear to auscultation bilaterally Cardio Rate: regular rate Rhythm: regular rhythm GI Inspection: Yes normal to inspection Extrem Other: Right Knee still mildly swelling with warmth but scar has healed very good. General: Yes edema Assessment and Plan Assessment & Plan (1) Status post total right knee replacement: Onset Date: ~07/29/23 Comment: Dr. Ron Mccray Code(s): Z96.651 - Presence of right artificial knee joint Plan: patient continues to be followed up by orthopedics and on physical therapy (2) Hypertension: Code(s): I10 - Essential (primary) hypertension Qualifiers: Hypertension type: essential hypertension Qualified Code(s): I10 - Essential (primary) hypertension Plan: Continue with blood pressure medication. Decrease salt intake and exercise amlodipine 5 mg once a day hydrochlorothiazide 25 mg once a day. BP at home has been good (3) Hypercholesterolemia: Code(s): E78.00 - Pure hypercholesterolemia, unspecified Plan: Avoid fried foods, chicken skin, eggs, butter margarine, pastries and meat. Be it pork or beef they have a lot of cholesterol LDL goal of less than 130 and triglyceride of less than 150. Patient on fenofibrate and atorvastatin 20 mg once a day June 2023 blood work (4) Obesity (BMI 30-39.9): Code(s): E66.9 - Obesity, unspecified Plan: Diet and exercise (5) Anemia: Code(s): D64.9 - Anemia, unspecified Plan: Advised to follow-up (6) Impaired glucose tolerance: Code(s): R73.02 - Impaired glucose tolerance (oral) Plan: Decrease the amount of carbohydrate intake, pasta, bread, rice and potatoes are all sugar and that is aside from all the sweet stuff, remember that fruits are good but they are Sweet also. Orders: Orders Complete Blood Count Auto Diff Today D64.9 - Anemia, unspecified Ferritin Today D64.9 - Anemia, unspecified Comprehensive Met. Panel Today R73.02 - Impaired glucose tolerance (oral) Free T4 (Free Thyroxine) Today R73.02 - Impaired glucose tolerance (oral) Reticulocyte Count Today D64.9 - Anemia, unspecified IRON PROFILE Today D64.9 - Anemia, unspecified Hemoglobin A1c Today R73.02 - Impaired glucose tolerance (oral) Thyroid Stimulating Hormone Today R73.02 - Impaired glucose tolerance (oral) Vitamin B12 and Folate Today R73.02 - Impaired glucose tolerance (oral) Lipid Panel Today E78.00 - Pure hypercholesterolemia, unspecified, R73.02 - Impaired glucose tolerance (oral) Medications: Refilled cyanocobalamin (vitamin B-12) 1,000 mcg PO DAILY 90 caps 3RF R73.02 - Impaired glucose tolerance (oral) Coding Level of Care Code Est Pt Level 4 (60844) Diagnoses Status post total right knee replacement Z96.651 Essential hypertension I10 Hypertension type: essential hypertension Hypercholesterolemia E78.00 Obesity (BMI 30-39.9) E66.9 Anemia D64.9 Impaired glucose tolerance R73.02
[2023-10-28 09:33] VITALS: BP 144/78; PULSE 81; O2SAT 98; BMI 36.1
== END 2023-10-28 10:14 | disposition home or self-care (01) ==
PROVIDERS: PCP Internal Medicine; Visit Provider Internal Medicine
DX: I10 Essential (primary) hypertension (principal); E66.9 Obesity, unspecified; Z68.36 Body mass index [BMI] 36.0-36.9, adult; Z96.651 Presence of right artificial knee joint; E78.00 Pure hypercholesterolemia, unspecified; D64.9 Anemia, unspecified; R73.02 Impaired glucose tolerance (oral)
CPT/HCPCS: 99214

== ENCOUNTER 2023-10-29 11:00 | Outpatient (RCR) | payer MEDICARE, OTHER, SELFPAY ==
--- NOTE | 2023-08-20 12:03 | MHC.PT.EP ---
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 Mahendra MD, with Dx of s/p RIGHT TKA (DOS:07/29/23) due to severe knee osteoarthritis. Patient impairments include pain, swelling, limited ROM, weakness, antalgic gait. Patient current functional limitations are walking, getting in bath tub, driving, bending/squatting, reciprocal stair use, golfing for recreation. Patient will benefit from skilled PT to address aforementioned impairments and functional limitations to meet established goals. Frequency and Duration: The patient will be seen 2-3x/week for 8 weeks Short Term Goals: 4 weeks Patient demonstrates consistency and independence with HEP to self manage symptoms. Patient presents with increased RIGHT knee extension AROM 0 degrees to restore normalized gait pattern with least restrictive AD. Rubber Goods Finisher Goals: 8 weeks Patient presents with increased RIGHT knee flexion 120 degrees to be able to perform sit/stand to low chair/surface. Patient presents with increased RIGHT knee extension 4+/5 to be able to ascend/descend reciprocal stairs 12 steps. Treatment Plan: Modalities to reduce pain, spasms and effusion. Manual therapy to restore motion and function. Therapeutic exercise to improve strength and flexibility. Neuromuscular re-education for posture and balance. Therapeutic activities to return to functional activities of daily living. Electronically signed by: Chintan Irene, PT, DPT Please sign and return to therapist. Thank you for your referral.
--- NOTE | 2023-10-29 14:42 | MHC.PT.DC ---
[facility] [place] Office [place] Office [place] Office [address] [phone] F: [phone] F: [phone] F: [phone] F: [phone] Physical Therapy Discharge Report Diagnosis: s/p RIGHT total knee arthroplasty (DOS: 07/29/23) Date of Surgery: Date of Evaluation: 08/20/23 Date of Discharge: 10/29/23 Treatments to Date: 19 Cancellations to Date: 0 No Shows to Date: 0 Discharge Status: Achieved Goals Improved Function Independent with HEP Discharge Summary: Ck did very well with PT interventions and is appropriate for disharge to continue with independent HEP to continue to make gains in strength and endurance. He reports at home he has been able to play golf but feels hills remain a challenge and going down stairs at home is also a challenge. He feels ready for discharge this session. Electronically signed by: Chintan Irene, PT, DPT Please sign and return to therapist. Thank you for your referral.
== END 2023-10-29 14:42 | disposition home or self-care (01) ==
LOC: HO.PT 11:00
PROVIDERS: PCP Internal Medicine; Visit Provider Physician Assistant
DX: Z96.651 Presence of right artificial knee joint (principal)
CPT/HCPCS: 97110; 97112; 97140; 97161; 97530

== ENCOUNTER 2023-11-21 13:17 | Outpatient (AMB) | payer MEDICARE, OTHER, SELFPAY ==
[2023-11-21 13:21] VITALS: BMI 36.1
--- NOTE | 2023-11-21 13:21 | MHC.OFFVIS ---
Vital Signs 11/21/23 13:21 Height 5 ft 5 in Weight 217 lb BMI 36.1 Intake Visit Reasons: ov-RT TKA 07/29/23 Intake Note: Ck is a 73 year old male who presents for a follow up s/p right TKA 07/29/23 . The patient reports mild to moderate intermittent discomfort in his right knee. He remains quite active, playing golf several days per week. He denies any fevers or chills. He has taken Tylenol which gives him only mild relief. The patient also has progressively worsening left knee pain. He is considering undergoing left total knee replacement surgery later this year or early next year. Allergies lisinopril Allergy (Intermediate, Verified 11/21/23 13:25) cough [facility] Medical History (Updated 11/21/23 @ 13:43 by Ron Mccray MD) Hypercholesterolemia Obesity (BMI 30-39.9) Impaired glucose tolerance Hypertension Headache Adult general medical exam RLQ abdominal pain Pes anserine bursitis Annual physical exam Epigastric abdominal pain Abdominal pain Osteoarthritis Prediabetes Vitamin D deficiency Allergic rhinitis Hypogonadism Anemia Surgical History (Updated 11/21/23 @ 13:26 by Pennie Potter CMA) Hx of right knee surgery (~07/29/23) History of colonoscopy Finger amputation, traumatic History of ankle surgery Family History Father Lung cancer Mother Diabetes Hypertension CVD (cardiovascular disease) Brother No problems noted. Social History Household Members: Family Housing: House Are you a primary emergency care attendant to a significant other at home: No Do you presently have visiting nurse or other home services: No Alcohol intake: current Alcohol intake frequency: holidays/special occasions only Alcohol type: beer Comment: aware of trip Patient Tobacco Use Status: Former Tobacco user Quit Date: 1977 Tobacco use type: Cigarette e-Cigarette/Vaping Use: Never Used Second Hand Smoke Exposure: No service: No Current occupational status: retired Cognitive needs: No Hearing needs: No Vision needs: Yes Physical Exam Vital Signs: BMI result Body Mass Index 36.1 Const Other: Well-nourished well-developed very friendly male awake alert and oriented x3 in no acute distress Extrem Other: Bilateral lower extremity examination shows good capillary refill, no skin lesions noted, normal sensation light touch Right knee examination shows that the surgical incision is well healed, no erythema, range of motion from -3 degrees to 115 degrees, his patella tracks well Assessment & Plan Assessment & Plan (1) Right knee pain: Code(s): M25.561 - Pain in right knee Category: Medical Plan Mr. Capone continues to do very well after undergoing right total knee replacement surgery on 07/29/2023. He will continue with his home exercise program. He does know to take antibiotics before any dental work. The patient does have progressively worsening left knee pain due to end-stage degenerative joint disease. He is considering undergoing left total knee replacement surgery later this year or early next year. I did give him a prescription for oxycodone to help with his pain in the meantime. He will contact me prior to his follow-up appointment in 2 months should any questions or concerns arise. Feel free to call me at any time should questions regarding his orthopedic management arise. I spent 20 minutes in reviewing the patient's records and imaging studies, seeing the patient and documenting in the medical record. Medications: Changed From oxycodone Partial Fill upon patient request. 5 mg PO Q6H 7 days PRN 28 tabs 0RF Pain, Moderate(Pain Scale 4-6) To oxycodone Partial Fill upon patient request. 5 mg PO Q12H 15 days PRN 30 tabs 0RF pain Coding Level of Care Code Est Pt Level 3 (50031) Diagnoses Right knee pain M25.561
== END 2023-11-21 13:38 | disposition home or self-care (01) ==
PROVIDERS: PCP Internal Medicine; Visit Provider Orthopaedic Surgery
DX: M25.561 Pain in right knee (principal)
CPT/HCPCS: 99213

== ENCOUNTER → 2023-11-21 13:17 | Outpatient (BNVA) | payer MEDICARE, OTHER, SELFPAY | PROVIDERS: PCP Internal Medicine; Visit Provider Orthopaedic Surgery | DX: M25.561 Pain in right knee (principal); Z96.651 Presence of right artificial knee joint | CPT/HCPCS: 99212 ==

== ENCOUNTER 2023-12-18 08:20 | Outpatient (REF) | payer MEDICARE, OTHER, SELFPAY ==
[2023-12-18 08:54] LABS: Basophils Percent Auto 0.4 % (0-2); Eosinophils Absolute Auto 0.1 X10*3/uL (0.0-0.4); Hematocrit 39.8 % (42.0-52.0); Hemoglobin 13.5 g/dl (14.0-18.0); Imm Gran Abs Auto 0.02 X10*3/uL (0.00-0.03); Imm Gran Pct Auto 0.3 % (0.0-0.4); Immature Retic Fraction 6.1 % (2.3-13.4); MANUAL DIFF FLAG NO; Mean Corpuscular HGB Conc 33.9 g/dl (31.0-36.0); Mean Corpuscular Volume 85.4 fL (80.0-98.0); Mean Platelet Volume 11.7 fL (9.4-12.4); Monocytes Absolute Auto 0.7 X10*3/uL (0.1-1.2); Monocytes Percent Auto 8.8 % (2-11); Neutrophils Absolute Auto 4.1 x10*3/uL (2.0-8.3); Neutrophils Percent Auto 51.5 % (45-73); Platelet Count 230 X10*3/uL (160-400); Red Blood Count 4.66 X10*6/uL (4.60-5.80); Red Cell Distribution Width 13.7 % (11.0-16.0); Retic HGB Equivalent 33.3 pg (30.0-35.0); Reticulocyte Percent 0.9 % (0.5-1.8); White Blood Count 7.9 X10*3/uL (4.8-10.8)
[2023-12-18 08:56] LABS: Hematocrit 40.4 % (42.0-52.0); Hemoglobin 13.4 g/dl (14.0-18.0); Mean Corpuscular HGB Conc 33.2 g/dl (31.0-36.0); Mean Corpuscular Hemoglobin 28.3 pg (27.0-33.0); Mean Corpuscular Volume 85.4 fL (80.0-98.0); Mean Platelet Volume 11.7 fL (9.4-12.4); Platelet Count 239 X10*3/uL (160-400); Red Blood Count 4.73 X10*6/uL (4.60-5.80); Red Cell Distribution Width 13.6 % (11.0-16.0); White Blood Count 7.7 X10*3/uL (4.8-10.8)
[2023-12-18 09:50] LABS: Alanine Aminotransferase 12 U/L (0-40); Albumin Level 4.3 g/dL (3.5-5.0); Alkaline Phosphatase 66 U/L (39-117); Anion Gap 13 (12-20); Aspartate Amino Transferase 15 U/L (5-37); Bilirubin Total 0.9 mg/dL (0.0-1.0); Blood Urea Nitrogen 16 mg/dL (9-16); Carbon Dioxide 24 mmol/L (22-29); Chloride 109 mmol/L (96-108); Cholesterol 159 mg/dL (<200); Estimated Glomerular Filt Rate > 60; Glucose Random 114 mg/dL (60-115); HDL Cholesterol 40 mg/dL (>40); Iron 120 mcg/dL (45-160); LDL Cholesterol Calculated 90 mg/dL (<100); Percent Iron Saturation 38 % (15-50); Potassium 3.6 mmol/L (3.3-5.1); Sodium 142 mmol/L (135-145); Total Iron Binding Capacity 317 mcg/dL (228-428); Total Protein 7.3 g/dL (6.5-8.0); Triglycerides 149 mg/dL (<150); Unsaturated Iron Binding 197 ug/dL
[2023-12-18 09:56] LABS: Estimated Average Glucose 131 mg/dL; Hemoglobin A1c % 6.2 % (<6.0)
[2023-12-18 10:02] LABS: Prostate Specific Antigen 0.26 ng/mL (<0.05-4.0)
[2023-12-18 10:08] LABS: Ferritin 138 ng/mL (20-250); Free T4 (Free Thyroxine) 1.07 ng/dL (0.71-1.85); Thyroid Stimulating Hormone 0.89 uIU/mL (0.32-4.0)
[2023-12-18 10:43] LABS: Folate 16.5 ng/mL (> or = 4.0); Vitamin B12 624 pg/mL (200-900)
[2023-12-23 16:14] LABS: Testosterone, Total 127 ng/dL (250-1100)
== END 2023-12-18 08:21 | disposition home or self-care (01) ==
LOC: HO.LAB 08:20
PROVIDERS: PCP Internal Medicine; Visit Provider Urology
DX: E29.1 Testicular hypofunction (principal); E78.00 Pure hypercholesterolemia, unspecified; R73.02 Impaired glucose tolerance (oral); D64.9 Anemia, unspecified; Z12.5 Encounter for screening for malignant neoplasm of prostate
CPT/HCPCS: 36415; 80053; 80061; 82607; 82728; 82746; 83036; 83540; 84153; 84403; 84439; 84443; 85025; 85027; 85045

== ENCOUNTER 2024-01-22 09:53 | Outpatient (REF) | payer MEDICARE, OTHER, SELFPAY ==
--- NOTE | ~2024-01-22 | XR_ITS ---
EXAMINATION: XR CERVICAL SPINE CLINICAL INFORMATION: Cervical radiculopathy, pain in neck radiating down right side the right hand for 3 to 4 months. COMPARISON: None available. TECHNIQUE: 4 views of the cervical spine. FINDINGS: Straightening of the normal cervical lordosis. Degenerative changes between the anterior arch of C1 and the odontoid. Minimal anterolisthesis of C4 and C5. Advanced degenerative changes with hypertrophic change and loss of disc space height at C5-C6. Mild spondylosis at C6-C7. C7 poorly visualized due to overlying bony and soft tissue structures. XR/XR cervical spine 3V IMPRESSION: Advanced degenerative disc disease at C5-C6.
== END 2024-01-22 09:54 | disposition home or self-care (01) ==
LOC: HO.XRAY 09:53
PROVIDERS: PCP Internal Medicine; Visit Provider Urology
DX: M54.12 Radiculopathy, cervical region (principal)
CPT/HCPCS: 72040

== ENCOUNTER 2024-01-30 12:55 | Outpatient (REF) | payer MEDICARE, OTHER, SELFPAY ==
--- NOTE | ~2024-01-30 | XR_ITS ---
Exam: X-rays bilateral knees INDICATION: Pain right knee, primary osteoarthritis left knee COMPARISON: Right knee 07/24/2023, bilateral knees 04/08/2023 TECHNIQUE: 3 views right knee. 3 views left knee. FINDINGS: Left knee: Joint effusion. Marked narrowing of the medial compartment subchondral sclerosis. Tiny tricompartmental osteophytes. Narrowing of the patellofemoral compartment. Bony exostosis versus loose body best appreciated along the anterior aspect of the tibial plateau on the lateral view Right knee: Status post total arthroplasty. Hardware appears intact. Diffuse demineralization. Joint effusion. XR/XR knee RT 3V IMPRESSION: 1. Marked degenerative changes left knee. 2. Status post right total knee arthroplasty. Hardware appears intact.
--- NOTE | ~2024-01-30 | XR_ITS ---
Exam: X-rays bilateral knees INDICATION: Pain right knee, primary osteoarthritis left knee COMPARISON: Right knee 07/24/2023, bilateral knees 04/08/2023 TECHNIQUE: 3 views right knee. 3 views left knee. FINDINGS: Left knee: Joint effusion. Marked narrowing of the medial compartment subchondral sclerosis. Tiny tricompartmental osteophytes. Narrowing of the patellofemoral compartment. Bony exostosis versus loose body best appreciated along the anterior aspect of the tibial plateau on the lateral view Right knee: Status post total arthroplasty. Hardware appears intact. Diffuse demineralization. Joint effusion. XR/XR knee LT 3V IMPRESSION: 1. Marked degenerative changes left knee. 2. Status post right total knee arthroplasty. Hardware appears intact.
== END 2024-01-30 12:56 | disposition home or self-care (01) ==
LOC: HO.HOSX 12:55
PROVIDERS: Visit Provider Orthopaedic Surgery
DX: M17.12 Unilateral primary osteoarthritis, left knee (principal); M25.561 Pain in right knee; Z96.651 Presence of right artificial knee joint
CPT/HCPCS: 73562; 99212

== ENCOUNTER 2024-01-30 13:15 | Outpatient (AMB) | payer MEDICARE, OTHER, SELFPAY ==
--- NOTE | 2024-01-30 13:17 | A.OFFVIS_ITS ---
Intake Visit Reasons: Arthritis of left knee Intake Note: Ck is a 73 year old male who presents with complaints of progressively worsening left knee pain. The patient did undergo right total knee replacement surgery on 07/29/2023. He reports minimal discomfort in his right knee. He describes his left knee pain as sharp and severe in nature. Left knee pain has gotten worse over the last few years in spite of continued non operative treatments. Has had injections in the past which gave him minimal relief. He has also done physical therapy which aggravated his pain. He has tried Tylenol and anti-inflammatory medicines which gave him no relief. The patient has difficulty walking even short distances because of his pain. At this point his left knee pain is interfering with his activities of daily living and his ability to sleep well through the night. Allergies lisinopril Allergy (Intermediate, Verified 01/30/24 13:17) cough Medication List - Last Reconciled 01/30/24 by Ron Mccray MD acetaminophen 650 mg (2 x 325 mg) PO Q6H PRN 30 days amitriptyline 10 mg PO BEDTIME amlodipine 5 mg PO DAILY 90 days amoxicillin 2,000 mg (4 x 500 mg) PO ONCE 1 day aspirin 325 mg PO BID 42 days atorvastatin 20 mg PO DAILY celecoxib 200 mg PO BID 30 days cholecalciferol (vitamin D3) 50 mcg PO DAILY cyanocobalamin (vitamin B-12) 1,000 mcg PO DAILY docusate sodium 100 mg PO BID 30 days fenofibrate 54 mg PO DAILY fluticasone propionate 50 mcg/actuation 2 sprays intranasal DAILY PRN folic acid 1 mg PO DAILY gabapentin 100 mg PO BEDTIME 7 days hydrochlorothiazide 25 mg PO DAILY methocarbamol 500 mg PO TID 7 days omeprazole 20 mg PO DAILY PRN oxycodone 5 mg PO Q12H PRN 15 days testosterone (AndroGel) 4 pumps topical DAILY 30 days walker Folding front wheeled walker [facility] Medical History Hypercholesterolemia Obesity (BMI 30-39.9) Impaired glucose tolerance Hypertension Headache Adult general medical exam RLQ abdominal pain Pes anserine bursitis Annual physical exam Epigastric abdominal pain Abdominal pain Osteoarthritis Prediabetes Vitamin D deficiency Allergic rhinitis Hypogonadism Anemia Surgical History Hx of right knee surgery (~01/08/24) History of colonoscopy Finger amputation, traumatic History of ankle surgery Family History Father Lung cancer Mother Diabetes Hypertension CVD (cardiovascular disease) Brother No problems noted. Social History Household Members: Family Housing: House Are you a primary day care provider to a significant other at home: No Do you presently have visiting nurse or other home services: No Alcohol intake: current Alcohol intake frequency: holidays/special occasions only Alcohol type: beer Comment: aware of trip Patient Tobacco Use Status: Former Tobacco user Tobacco use type: Cigarette e-Cigarette/Vaping Use: Never Used Second Hand Smoke Exposure: No service: No Current occupational status: retired Cognitive needs: No Hearing needs: No Vision needs: Yes Physical Exam Const Other: Well-nourished well-developed very friendly male awake alert and oriented x3 in no acute distress Extrem Other: Bilateral lower extremity examination shows good capillary refill, no skin lesions noted, normal sensation light touch Left knee examination shows a minimal effusion, palpable crepitus with range of motion, pain with range of motion, range of motion from -3 degrees to 115 de grees, no instability Results Reviewed Results Reviewed: X-rays of the patient's left knee show end-stage degenerative joint disease with grade 4 [id number] arthritis, subchondral sclerosis, osteophyte formation, no acute bony abnormalities Assessment & Plan Assessment & Plan (1) Arthritis of left knee: Code(s): M17.12 - Unilateral primary osteoarthritis, left knee Category: Medical Plan Mr. Capone presents with progressively worsening left knee pain due to end- stage degenerative joint disease. I had a lengthy discussion with the patient regarding the treatment options. At this point he has failed continued non operative treatments. The risks and benefits of left total knee replacement surgery were discussed at length with the patient. The patient wishes to proceed with surgery later this year or early next year. Will contact my office to pick a surgery date. I will see him back just prior to his surgery to answer any final questions that he might have. Feel free to call me at any time should questions regarding his orthopedic management arise. I spent 22 minutes in reviewing the patient's records and imaging studies, seeing the patient and documenting in the medical record. Orders: Orders XR knee RT 3V Today M25.561 - Pain in right knee XR knee LT 3V Today M17.12 - Unilateral primary osteoarthritis, left knee Medications: Refilled oxycodone Partial Fill upon patient request. 5 mg PO Q12H 15 days PRN 30 tabs 0RF pain Coding Level of Care Code Est Pt Level 3 (62885) Diagnoses Arthritis of left knee M17.12
== END 2024-01-30 13:59 | disposition home or self-care (01) ==
PROVIDERS: PCP Internal Medicine; Visit Provider Orthopaedic Surgery
DX: M17.12 Unilateral primary osteoarthritis, left knee (principal)
CPT/HCPCS: 99214

== ENCOUNTER 2024-03-13 09:27 | Outpatient (AMB) | payer MEDICARE, OTHER, SELFPAY ==
--- NOTE | 2024-03-13 09:38 | MHC.PC.OV ---
Vital Signs 03/13/24 09:39 Height 5 ft 5 in Weight 213 lb BMI 35.4 BP 126/84 Blood Pressure Location Lt brachial Position Sitting Pulse 69 Pulse Source Pulse Oximeter Pulse Oximetry (%) 98 Oxygen Delivery Method Room Air Intake Visit Reasons: HTN, Chol Copywriter Required: No Accompanied by: Self / Same As Patient Allergies lisinopril Allergy (Intermediate, Verified 03/13/24 09:40) cough Medication List - Last Reconciled 03/13/24 by Sherly Hsieh MD acetaminophen 650 mg (2 x 325 mg) PO Q6H PRN 30 days amitriptyline 10 mg PO BEDTIME amlodipine 5 mg PO DAILY 90 days amoxicillin 2,000 mg (4 x 500 mg) PO ONCE 1 day atorvastatin 20 mg PO DAILY cholecalciferol (vitamin D3) 50 mcg PO DAILY cyanocobalamin (vitamin B-12) 1,000 mcg PO DAILY docusate sodium 100 mg PO BID 30 days fenofibrate 54 mg PO DAILY fluticasone propionate 50 mcg/actuation 2 sprays intranasal DAILY PRN folic acid 1 mg PO DAILY gabapentin 100 mg PO BEDTIME 7 days hydrochlorothiazide 25 mg PO DAILY meloxicam 15 mg PO DAILY omeprazole 20 mg PO DAILY PRN oxycodone 5 mg PO Q12H PRN 15 days testosterone (AndroGel) 4 pumps topical DAILY 30 days walker Folding front wheeled walker Tobacco use date assessed: 03/13/24 Fall risk assessment: No Falls in past year Last assessed Fall Risk: 03/13/24 Dental Screening Dental Screen Date: 03/13/24 Did you have a dental visit in the last 12 months?: No Did you have a dental problem in the last 6 months where you did not have access to dental care?: No Was dental information given to patient?: No HPI HTN, Chol HPI Details 74-year-old obese male with a history of hypertension hypercholesterolemia impaired glucose tolerance last seen in 11/09/2023. Patient continues to follow-up with ortho after right knee replacement in 08/10/2023. Complains of left knee pain will be having surgery planned. Patient also and had an x-ray of the neck in JanuaryAdvanced degenerative disc disease at C5-C6.. July 29, 2024 L knee surgery [facility] Medical History Hypercholesterolemia Obesity (BMI 30-39.9) Impaired glucose tolerance Hypertension Headache Adult general medical exam RLQ abdominal pain Pes anserine bursitis Annual physical exam Epigastric abdominal pain Abdominal pain Osteoarthritis Prediabetes Vitamin D deficiency Allergic rhinitis Hypogonadism Anemia Surgical History Hx of right knee surgery (~07/29/23) History of colonoscopy Finger amputation, traumatic History of ankle surgery Family History Father Lung cancer Mother Diabetes Hypertension CVD (cardiovascular disease) Brother No problems noted. Social History Household Members: Family Housing: House Are you a primary elderly caregiver to a significant other at home: No Do you presently have visiting nurse or other home services: No Alcohol intake: current Alcohol intake frequency: holidays/special occasions only Alcohol type: beer Comment: aware of trip Patient Tobacco Use Status: Former Tobacco user Tobacco use type: Cigarette e-Cigarette/Vaping Use: Never Used Second Hand Smoke Exposure: No service: No Current occupational status: retired Cognitive needs: No Hearing needs: No Vision needs: Yes Questionnaire PHQ-9 Over the last 2 weeks, how often have you been bothered by any of the following problems? 1. Little interest or pleasure in doing things: not at all 2. Feeling down, depressed, or hopeless: not at all 3. Trouble falling or staying asleep, or sleeping too much: not at all 4. Feeling tired or having little energy: not at all 5. Poor appetite or overeating: not at all 6. Feeling bad about yourself - or that you are a failure or have let yourself or your family down: not at all 7. Trouble concentrating on things, such as reading the newspaper or watching television: not at all 8. Moving or speaking so slowly that other people could have noticed. Or the opposite - being so fidgety or restless that you have been moving around a lot more than usual: not at all 9. Thoughts that you would be better off or of hurting yourself in some way: not at all Total score: 0 Depression Screening Interpretation: Negative Depression Screening Done: Yes 40450 - PHQ-9 Billing: Yes Source: Developed by Drs. Fantasma Rios, Emmie Moya, Bean San and colleagues, with an educational yvonne from [employer] Thrive Questionnaire Date Thrive assessed: 03/13/24 I am a: Patient What is your living situation today?: I have a steady place to live Within the past 12 months, did the food you bought not last and you didn't have the money to get more?: Never true Within the past 12 months, did you worry whether your food would run out before you got money to buy more?: Never true Do you have trouble paying for medicines?: No Do you have trouble getting transportation to medical appointments?: No Do you have trouble paying your heating and electricity bill?: No Do you have trouble taking care of your child, family member or friend?: No Do you have trouble with day-to-day activities such as bathing, preparing meals, shopping, managing finances, etc.?: No Are you currently unemployed and looking for a job?: No Are you interested in more education?: No Please select the resources that you would like help with: None Currently or been in a relationship where the following occur: No concerns reported THRIVE Score: 0 AUDIT C Alcohol Use Questionnaire (AUDIT-C) 1. How often do you have a drink containing alcohol?: Monthly or less 2. How many drinks containing alcohol do you have on a typical day when you are drinking?: 1 or 2 3. How often do you have six or more drinks on one occasion?: Never Total Score: 1 Score Reviewed/Action Taken: No FIDELIA-7 AMB Questionnaire FIDELIA-7 Date FIDELIA - 7 assessed: 03/13/24 Feeling nervous, anxious, or on edge: 0 = Not at all Not being able to stop or control worryin = Not at all Worrying too much about different things: 0 = Not at all Trouble relaxin = Not at all Being so restless that it is hard to sit still: 0 = Not at all Becoming easily annoyed or irritable: 0 = Not at all Feeling afraid as if something awful might happen: 0 = Not at all Total FIDELIA-7 score (0-4 normal; 5-9 mild; 10-14 moderate; 15-21 severe): 0 Source: Developed by Drs. Fantasma Rios, Emmie Moya, Bean San and colleagues, with an educational yvonne from [employer]. Physical exam (Primary Care) Vital Signs: Last Vital Signs Pulse 69 03/13/24 09:39 BP 126/84 03/13/24 09:39 Pulse Ox 98 03/13/24 09:39 Oxygen Delivery Method Room Air 03/13/24 09:39 BMI result Body Mass Index 35.4 Tobacco/Smoking Status: Tobacco use Status Tobacco use date assessed 03/13/24 03/13/24 09:47 Patient Tobacco Use Status Former Tobacco user 03/13/24 09:47 Tobacco use type Cigarette 03/13/24 09:47 e-Cigarette/Vaping Use Never Used 03/13/24 09:47 PHQ-9: PHQ-9 Score PHQ-9: Total score 0 03/13/24 09:47 Depression Screening Interpretation: Negative Thrive Assessment: Date of Thrive Assessment Date Thrive assessed 03/13/24 03/13/24 09:47 Currently or been in a relationship where the following occur: No concerns reported Const General: alert; No acute distress Eyes Conjunctivae: conjunctivae normal Resp Auscultation: clear to auscultation bilaterally Cardio Rate: regular rate Rhythm: regular rhythm GI Inspection: Yes normal to inspection Extrem General: Yes normal to inspection and No edema Results AMB Hemoglobin A1c AMB Hemoglobin A1c 5.7 % Last Edit by KENDALL Arias on 03/13/24 10:04 Assessment and Plan Assessment & Plan (1) Obesity (BMI 30-39.9): Code(s): E66.9 - Obesity, unspecified Plan: Diet and exercise (2) Hypertension: Code(s): I10 - Essential (primary) hypertension Qualifiers: Hypertension type: essential hypertension Qualified Code(s): I10 - Essential (primary) hypertension Plan: Continue with blood pressure medication. Decrease salt intake and exercise on amlodipine 5 mg once a day hydrochlorothiazide 25 mg once a day (3) Hypercholesterolemia: Code(s): E78.00 - Pure hypercholesterolemia, unspecified Plan: Avoid fried foods, chicken skin, eggs, butter margarine, pastries and meat. Be it pork or beef they have a lot of cholesterol LDL goal of less than 130 and triglyceride of less than 150. On fenofibrate 54 mg once a day and atorvastatin 20 mg once a day (4) Status post total right knee replacement: Onset Date: ~07/29/23 Comment: Dr. Ron Mccray Code(s): Z96.651 - Presence of right artificial knee joint Plan: Continue to be active patient follows up with orthopedics (5) Arthritis of left knee: Code(s): M17.12 - Unilateral primary osteoarthritis, left knee Plan: Patient has seen Orthopedics and planned knee replacement either late this year or early next year. (6) Impaired glucose tolerance: Code(s): R73.02 - Impaired glucose tolerance (oral) Plan: Decrease the amount of carbohydrate intake, pasta, bread, rice and potatoes are all sugar and that is aside from all the sweet stuff, remember that fruits are good but they are Sweet also. Orders: Orders AMB Hemoglobin A1c Today Z13.9 - Encounter for screening, unspecified Medications: New fluticasone propionate 50 mcg/actuation administer into each nostril 2 sprays intranasal DAILY PRN 16 grams 4RF Allergy Symptoms Coding Level of Care Code Est Pt Level 4 (35228) Diagnoses Obesity (BMI 30-39.9) E66.9 Essential hypertension I10 Hypertension type: essential hypertension Hypercholesterolemia E78.00 Status post total right knee replacement Z96.651 Arthritis of left knee M17.12 Impaired glucose tolerance R73.02
[2024-03-13 09:39] VITALS: BP 126/84; PULSE 69; O2SAT 98; BMI 35.4
== END 2024-03-13 10:06 | disposition home or self-care (01) ==
PROVIDERS: PCP Internal Medicine; Visit Provider Internal Medicine
DX: I10 Essential (primary) hypertension (principal); R73.02 Impaired glucose tolerance (oral); E66.9 Obesity, unspecified; Z68.35 Body mass index [BMI] 35.0-35.9, adult; E78.00 Pure hypercholesterolemia, unspecified; Z96.651 Presence of right artificial knee joint; M17.12 Unilateral primary osteoarthritis, left knee
CPT/HCPCS: 83036; 99214

== ENCOUNTER 2024-03-17 10:18 | Outpatient (REF) | payer MEDICARE, OTHER, SELFPAY ==
[2024-03-17 10:41] LABS: Hematocrit 37.8 % (42.0-52.0); Hemoglobin 12.6 g/dl (14.0-18.0); Mean Corpuscular HGB Conc 33.3 g/dl (31.0-36.0); Mean Corpuscular Hemoglobin 29.6 pg (27.0-33.0); Mean Corpuscular Volume 88.7 fL (80.0-98.0); Mean Platelet Volume 11.3 fL (9.4-12.4); Platelet Count 222 X10*3/uL (160-400); Red Blood Count 4.26 X10*6/uL (4.60-5.80); Red Cell Distribution Width 13.2 % (11.0-16.0); White Blood Count 9.3 X10*3/uL (4.8-10.8)
== END 2024-03-17 10:19 | disposition home or self-care (01) ==
LOC: HO.LAB 10:18
PROVIDERS: PCP Internal Medicine; Visit Provider Urology
DX: E29.1 Testicular hypofunction (principal)
CPT/HCPCS: 36415; 85027

== ENCOUNTER 2024-03-24 09:08 | Outpatient (AMB) | payer MEDICARE, OTHER, SELFPAY ==
--- NOTE | 2024-03-24 09:22 | MHC.OFFVIS ---
Intake Visit Reasons: 6 month T/PSA(set) Intake Note: Patient is Present for 6M Follow Up/PSA Urology Medication: Testosterone, VITAMIN b12 Antibiotic Allergies: None Blood Thinners: None [employer] Supervisor Required: No Allergies lisinopril Allergy (Intermediate, Verified 03/24/24 09:23) cough Medication List - Last Reconciled 03/24/24 by Lior Gil MD acetaminophen 650 mg (2 x 325 mg) PO Q6H PRN 30 days amitriptyline 10 mg PO BEDTIME amlodipine 5 mg PO DAILY 90 days amoxicillin 2,000 mg (4 x 500 mg) PO ONCE 1 day atorvastatin 20 mg PO DAILY cholecalciferol (vitamin D3) 50 mcg PO DAILY cyanocobalamin (vitamin B-12) 1,000 mcg PO DAILY docusate sodium 100 mg PO BID 30 days fenofibrate 54 mg PO DAILY fluticasone propionate 50 mcg/actuation 2 sprays intranasal DAILY PRN folic acid 1 mg PO DAILY gabapentin 100 mg PO BEDTIME 7 days hydrochlorothiazide 25 mg PO DAILY meloxicam 15 mg PO DAILY omeprazole 20 mg PO DAILY PRN oxycodone 5 mg PO Q12H PRN 15 days testosterone (AndroGel) 4 pumps topical DAILY 30 days walker Folding front wheeled walker HPI Comments Details: Ck is a pleasant male. He is a patient of Dr. Hsieh. He is seen for the following urologic conditions - hypogonadism Six-month follow-up AndroGel 4 pumps daily T has remained subtherapeutic in setting of metabolic syndrome Would attempt to do Testopel Seeds Hypogonadism: He presents today for follow-up of hypogonadism Review with labs in 6m. Initial symptoms include erectile dysfunction No decreased libido Yes change in mood/depression No The onset of symptoms has been gradual. Associate conditions include obstructive sleep apnea No CAD No obesity No stress - financial, family, employment No heavy alcohol or illicit drug use No Laboratory results 02/05 , baseline, testosterone, low 136, , LH, low 1.3 04/08 , testosterone 179, , testosterone 198 10/07 T 220 04/09 T 300, PSA 0.4 12/08 T 300, PSA 0.36, Hct 38. 06/10 T 340 PSA 0.27 - 12/09 T 200, PSA 0.3, Hct 41%, 06/11 T 360 P 0.3 H39, 12/10 T 360 0.3 38, 06/12 T 300 F 60 H 40 P 0.28, 12/11 380 0.3, 07/13 300 0.4 42, 12/12 T 127 Therapeutic plan Continue with medication PFSH Medical History Hypercholesterolemia Obesity (BMI 30-39.9) Impaired glucose tolerance Hypertension Headache Adult general medical exam RLQ abdominal pain Pes anserine bursitis Annual physical exam Epigastric abdominal pain Abdominal pain Osteoarthritis Prediabetes Vitamin D deficiency Allergic rhinitis Hypogonadism Anemia Surgical History Hx of right knee surgery (~07/29/23) History of colonoscopy Finger amputation, traumatic History of ankle surgery Family History Father Lung cancer Mother Diabetes Hypertension CVD (cardiovascular disease) Brother No problems noted. Social History Household Members: Family Housing: House Are you a primary client care representative to a significant other at home: No Do you presently have visiting nurse or other home services: No Alcohol intake: current Alcohol intake frequency: holidays/special occasions only Alcohol type: beer Comment: aware of trip Patient Tobacco Use Status: Former Tobacco user Tobacco use type: Cigarette e-Cigarette/Vaping Use: Never Used Second Hand Smoke Exposure: No service: No Current occupational status: retired Cognitive needs: No Hearing needs: No Vision needs: Yes Review of Systems Const Denies chills and Denies fever(s) Card Reports no additional complaints and Denies syncope Resp Denies cough GI Denies abdominal pain and Denies heartburn Reports as per HPI and Denies change in libido Neuro Denies syncope Psych Denies change in libido Endo Denies change in libido Physical Exam Const General: cooperative, healthy appearing, comfortable and no acute distress Orientation/consciousness: patient oriented x3 HEENT Face and sinus: Yes normal facial exam Mouth: moist mucous membranes Neck Neck: Yes normal visual inspection, Yes full ROM and Yes trachea midline Chest Chest palpation & inspection: normal inspection of the chest Resp Effort & Inspection: normal respiratory effort, able to speak in complete sentences and no respiratory distress GI Inspection: Yes normal to inspection Back/Spine/Pelvis Cervical Spine: normal cervical lordosis Thoracic/Lumbar Spine: thoracic and lumbar spine normal to inspection Skin General skin exam: no rashes or lesions noted Neuro General: patient oriented x3, gait normal, tone normal and moves all extremities Extrem General: Yes normal to inspection and Yes capillary refill normal Results AMB Urinalysis, Automated UA Leukoctes 0 Leann/uL Last Edit by EARNESTINE Chan on 03/24/24 09:35 UA Nitrite Negative Last Edit by Clay Womack CCM on 03/24/24 09:35 UA Urobilinogen 0.2 mg/dL Last Edit by Clay Womack CCM on 03/24/24 09:35 UA Protein 15 mg/dL Last Edit by Clay Womack CCM on 03/24/24 09:35 UA pH 6.5 Last Edit by Clay Womack CCM on 03/24/24 09:35 UA Blood 0 Rolando/uL Last Edit by Clay Womack CCM on 03/24/24 09:35 UA Specific Debary 1.020 Last Edit by Clay Womakc [facility] on 03/24/24 09:35 UA Ketone Negative Last Edit by EARNESTINE Chan on 03/24/24 09:35 UA Bilirubin 0 mg/dL Last Edit by Clay Womack [facility] on 03/24/24 09:35 UA Glucose 0 mg/dL Last Edit by Clay Womack [facility] on 03/24/24 09:35 Results Reviewed Results Reviewed: Laboratory Last Values Urine pH (Auto) 6.5 03/24/24 09:34 Specific Debary (Auto) 1.020 03/24/24 09:34 Urine Protein (Auto) 15 mg/dL 03/24/24 09:34 Glucose (UA)(Auto) 0 mg/dL 03/24/24 09:34 Urine Ketones (Auto) Negative 03/24/24 09:34 Urine Blood (Auto) 0 Rolando/uL 03/24/24 09:34 Urine Nitrite (Auto) Negative 03/24/24 09:34 Urine Bilirubin (Auto) 0 mg/dL 03/24/24 09:34 Urine Urobilinogen (Auto) 0.2 mg/dL 03/24/24 09:34 Leukocyte Esterase (Auto) 0 Leann/uL 03/24/24 09:34 Assessment & Plan Assessment & Plan (1) Hypogonadism in male: Code(s): E29.1 - Testicular hypofunction Category: Medical Plan Six-month follow-up lab work Orders: Orders Prostate Specific Antigen 6 Months E29.1 - Testicular hypofunction AMB Urinalysis Automated Today Z13.9 - Encounter for screening, unspecified Testosterone, Total 6 Months E29.1 - Testicular hypofunction Complete Blood Count no Diff 6 Months E29.1 - Testicular hypofunction Medications: Refilled testosterone (AndroGel) apply 2 pump amount over max area of EACH upper arm and shoulder - 4 total per day 4 pumps topical DAILY 150 grams 5RF 30 days E29.1 - Testicular hypofunction Patient Instructions: Imaging studies, laboratory and physical exam results were discussed and reviewed in detail. No major barriers to patient understanding were identified. An opportunity to ask questions regarding the treatment plan was provided. All questions were answered. The patient expressed understanding and agreement with the above treatment plan. The patient is aware they should contact our office by phone for worsening of their current condition or the appearance of new urologic symptoms. Compliance is encouraged with any medications and followup testing that is ordered. It is a privilege to participate in the urologic care of your patient. If you have any questions or concerns regarding treatment for the above conditions, or other urologic issues, please do not hesitate to contact me. The office telephone contact is [phone]. This note is constructed using voice recognition software. While every effort has been made to ensure accuracy customer solutions teammate errors may have been included. Yours sincerely, Dr Lior Gil MD, [facility] - Urology Providers of Expert, Compassionate Care for the Genitourinary System Coding Level of Care Code Est Pt Level 3 (90287) Diagnoses Hypogonadism in male E29.1
== END 2024-03-24 09:46 | disposition home or self-care (01) ==
PROVIDERS: PCP Internal Medicine; Visit Provider Urology
DX: Z13.9 Encounter for screening, unspecified (principal); E29.1 Testicular hypofunction
CPT/HCPCS: 99213

== ENCOUNTER → 2024-03-24 09:08 | Outpatient (BNVA) | payer MEDICARE, OTHER, SELFPAY | PROVIDERS: PCP Internal Medicine; Visit Provider Urology | DX: E29.1 Testicular hypofunction (principal) | CPT/HCPCS: 81003; 99212 ==

== ENCOUNTER 2024-03-31 12:42 | Outpatient (AMB) | payer MEDICARE, OTHER, SELFPAY ==
--- NOTE | 2024-03-31 12:43 | A.OFFPC_ITS ---
Intake Visit Reasons: COVID Pos. Allergies lisinopril Allergy (Intermediate, Verified 03/24/24 09:23) cough Tobacco use date assessed: 03/13/24 Fall risk assessment: No Falls in past year Last assessed Fall Risk: 03/31/24 Dental Screening Dental Screen Date: 03/13/24 HPI COVID Pos. HPI Details 74-year-old obese male with hypertension and hypercholesterolemia last seen in February. Calling in for COVID-19 infection positive 03/30/2024HA, fevers, dry cough, test PFSH Medical History Hypercholesterolemia Obesity (BMI 30-39.9) Impaired glucose tolerance Hypertension Headache Adult general medical exam RLQ abdominal pain Pes anserine bursitis Annual physical exam Epigastric abdominal pain Abdominal pain Osteoarthritis Prediabetes Vitamin D deficiency Allergic rhinitis Hypogonadism Anemia Surgical History Hx of right knee surgery (~07/29/23) History of colonoscopy Finger amputation, traumatic History of ankle surgery Family History Father Lung cancer Mother Diabetes Hypertension CVD (cardiovascular disease) Brother No problems noted. Social History Household Members: Family Housing: House Are you a primary intensive care ambulance paramedic to a significant other at home: No Do you presently have visiting nurse or other home services: No Alcohol intake: current Alcohol intake frequency: holidays/special occasions only Alcohol type: beer Comment: aware of trip Patient Tobacco Use Status: Former Tobacco user Tobacco use type: Cigarette e-Cigarette/Vaping Use: Never Used Second Hand Smoke Exposure: No service: No Current occupational status: retired Cognitive needs: No Hearing needs: No Vision needs: Yes Questionnaire PHQ-9 Over the last 2 weeks, how often have you been bothered by any of the following problems? 1. Little interest or pleasure in doing things: not at all 2. Feeling down, depressed, or hopeless: not at all 3. Trouble falling or staying asleep, or sleeping too much: not at all 4. Feeling tired or having little energy: not at all 5. Poor appetite or overeating: not at all 6. Feeling bad about yourself - or that you are a failure or have let yourself or your family down: not at all 7. Trouble concentrating on things, such as reading the newspaper or watching television: not at all 8. Moving or speaking so slowly that other people could have noticed. Or the opposite - being so fidgety or restless that you have been moving around a lot more than usual: not at all 9. Thoughts that you would be better off or of hurting yourself in some way: not at all Total score: 0 Depression Screening Interpretation: Negative Depression Screening Done: Yes 75766 - PHQ-9 Billing: Yes Source: Developed by Drs. Fantasma Rios, Emmie Moya, Bean San and colleagues, with an educational yvonne from [employer]. Thrive Questionnaire Date Thrive assessed: 03/13/24 AUDIT C Alcohol Use Questionnaire (AUDIT-C) 1. How often do you have a drink containing alcohol?: Monthly or less 2. How many drinks containing alcohol do you have on a typical day when you are drinking?: 1 or 2 3. How often do you have six or more drinks on one occasion?: Never Total Score: 1 Score Reviewed/Action Taken: No FIDELIA-7 AMB Questionnaire FIDELIA-7 Date FIDELIA - 7 assessed: 03/13/24 Source: Developed by Drs. Fantasma Rios, Emmie Moya, Bean San and colleagues, with an educational yvonne from [employer]. Physical exam (Primary Care) Tobacco/Smoking Status: Tobacco use Status Tobacco use date assessed 03/13/24 03/31/24 12:44 Patient Tobacco Use Status Former Tobacco user 03/31/24 12:44 Tobacco use type Cigarette 03/31/24 12:44 e-Cigarette/Vaping Use Never Used 03/31/24 12:44 PHQ-9: PHQ-9 Score PHQ-9: Total score 0 03/31/24 12:45 Depression Screening Interpretation: Negative Thrive Assessment: Date of Thrive Assessment Date Thrive assessed 03/13/24 03/31/24 12:44 Telehealth Telehealth Telehealth Platform: Telephone Location of provider rendering services: practice address Location of patient: address on file Patient Identification confirmed using: Name, : Yes Telehealth method: voice only Patient verbally consented to treatment: Yes Patient verbally consented to billing insurance company: Yes Patient informed of any privacy concerns related to visit: Yes Assessment and Plan Assessment & Plan (1) COVID-19 virus infection: Comment: March 30 2024 Code(s): U07.1 - COVID-19 Plan: For the sore throat can take Cepacol lozenges, discussed about Delsym to help with dry cough so she can rest and advised to increase oral fluids. Patient also can take Tylenol for chills and fever. Antiviral prescription sent in. Medications: New nirmatrelvir-ritonavir 300 mg (150 mg x 2)-100 mg (Paxlovid) take TWO 150 mg tablets of nirmatrelvir with ONE 100 mg tablet of ritonavir twice daily for 5 days PO 30 ea 0RF U07.1 - COVID-19 Coding Level of Care Code Tele Est Pt Level 3 (22183) Diagnoses COVID-19 virus infection U07.1
== END 2024-03-31 16:20 | disposition home or self-care (01) ==
LOC: HO.HMGH 12:42
PROVIDERS: PCP Internal Medicine; Visit Provider Internal Medicine
DX: U07.1 COVID-19 (principal)
CPT/HCPCS: 99441

== ENCOUNTER 2024-04-24 08:48 | Outpatient (REF) | payer MEDICARE, OTHER, SELFPAY ==
[2024-04-24 09:04] LABS: MANUAL DIFF FLAG NO
[2024-04-24 09:29] LABS: Basophils Percent Auto 0.4 % (0-2); Eosinophils Absolute Auto 0.1 X10*3/uL (0.0-0.4); Eosinophils Percent Auto 0.9 % (0-4); Hematocrit 37.5 % (42.0-52.0); Hemoglobin 12.7 g/dl (14.0-18.0); Imm Gran Abs Auto 0.03 X10*3/uL (0.00-0.03); Imm Gran Pct Auto 0.4 % (0.0-0.4); Lymphocytes Absolute Auto 3.5 X10*3/uL (1.2-4.9); Lymphocytes Percent Auto 41.2 % (20-40); Mean Corpuscular HGB Conc 33.9 g/dl (31.0-36.0); Mean Corpuscular Hemoglobin 29.5 pg (27.0-33.0); Mean Corpuscular Volume 87.2 fL (80.0-98.0); Mean Platelet Volume 11.1 fL (9.4-12.4); Monocytes Absolute Auto 0.7 X10*3/uL (0.1-1.2); Monocytes Percent Auto 8.4 % (2-11); Neutrophils Absolute Auto 4.1 x10*3/uL (2.0-8.3); Neutrophils Percent Auto 48.7 % (45-73); Platelet Count 213 X10*3/uL (160-400); Red Cell Distribution Width 12.9 % (11.0-16.0); White Blood Count 8.4 X10*3/uL (4.8-10.8)
[2024-04-24 10:48] LABS: Estimated Average Glucose 123 mg/dL; Hemoglobin A1C 122.0498 umol/L; Hemoglobin A1c % 5.9 % (<6.0); Total Hemoglobin (HGBA1C) 2975.5998 umol/L
[2024-04-24 11:01] LABS: Alanine Aminotransferase 23 U/L (0-40); Albumin Level 4.1 g/dL (3.5-5.0); Alkaline Phosphatase 67 U/L (39-117); Anion Gap 13 (12-20); Aspartate Amino Transferase 19 U/L (5-37); Bilirubin Total 0.5 mg/dL (0.0-1.0); Blood Urea Nitrogen 20 mg/dL (9-16); Calcium 8.7 mg/dL (8.4-10.2); Carbon Dioxide 22 mmol/L (22-29); Chloride 110 mmol/L (96-108); Cholesterol 158 mg/dL (<200); Estimated Glomerular Filt Rate > 60; Glucose Random 103 mg/dL (60-115); HDL Cholesterol 40 mg/dL (>40); LDL Cholesterol Calculated 78 mg/dL (<100); Sodium 141 mmol/L (135-145); Total Protein 7.1 g/dL (6.5-8.0); Triglycerides 204 mg/dL (<150)
[2024-04-24 11:07] LABS: Free T4 (Free Thyroxine) 0.88 ng/dL (0.71-1.85); Thyroid Stimulating Hormone 0.89 uIU/mL (0.32-4.0)
[2024-04-24 11:36] LABS: Folate 14.1 ng/mL (> or = 4.0); Prostate Specific Antigen Scr 0.28 ng/mL (<0.05-4.0); Vitamin B12 710 pg/mL (200-900)
== END 2024-04-24 08:49 | disposition home or self-care (01) ==
LOC: HO.XRAY 08:48
PROVIDERS: PCP Internal Medicine; Visit Provider Internal Medicine
DX: Z12.5 Encounter for screening for malignant neoplasm of prostate (principal); Z13.1 Encounter for screening for diabetes mellitus; E78.00 Pure hypercholesterolemia, unspecified
CPT/HCPCS: 36415; 80053; 80061; 82607; 82746; 83036; 84153; 84439; 84443; 85025

== ENCOUNTER 2024-04-29 10:11 | Outpatient (AMB) | payer MEDICARE, OTHER, SELFPAY ==
--- NOTE | 2024-04-29 10:25 | A.OFFPC_ITS ---
Vital Signs 04/29/24 10:27 Height 5 ft 5 in Weight 206 lb 6 oz BMI 34.3 BP 130/76 Blood Pressure Location Lt brachial Position Sitting Pulse 71 Pulse Source Pulse Oximeter Pulse Oximetry (%) 96 Oxygen Delivery Method Room Air Intake Visit Reasons: Annual Exam Intake Note: Patient is here today for a physical. 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 per policy Accompanied by: Self / Same As Patient Allergies lisinopril Allergy (Intermediate, Verified 04/29/24 10:26) cough Medication List - Last Reconciled 04/29/24 by Sherly Hsieh MD acetaminophen 650 mg (2 x 325 mg) PO Q6H PRN 30 days amitriptyline 10 mg PO BEDTIME amlodipine 5 mg PO DAILY 90 days amoxicillin 2,000 mg (4 x 500 mg) PO ONCE 1 day atorvastatin 20 mg PO DAILY cholecalciferol (vitamin D3) 50 mcg PO DAILY cyanocobalamin (vitamin B-12) 1,000 mcg PO DAILY docusate sodium 100 mg PO BID 30 days fenofibrate 54 mg PO DAILY fluticasone propionate 50 mcg/actuation 2 sprays intranasal DAILY PRN folic acid 1 mg PO DAILY gabapentin 100 mg PO BEDTIME 7 days hydrochlorothiazide 25 mg PO DAILY meloxicam 15 mg PO DAILY omeprazole 20 mg PO DAILY PRN testosterone (AndroGel) 4 pumps topical DAILY 30 days walker Folding front wheeled walker Tobacco use date assessed: 04/29/24 Fall risk assessment: No Falls in past year Last assessed Fall Risk: 04/29/24 Dental Screening Dental Screen Date: 03/13/24 HPI Annual Exam HPI Details 74-year-old obese male with impaired glu cose tolerance hypercholesterolemia hypertension last seen through Telehealth in March for COVID-19 infection. Patient is here for physical exam. Colonoscopy last done in 2014 hyperplastic. Patient does see Dr. Gil for hypogonadism Urology patient also sees Orthopedics Dr. Mccray Neurology Dr. Luz Gastroenterology Dr. Johnson [facility] Medical History (Updated 04/29/24 @ 10:52 by Sherly Hsieh MD) Annual physical exam Hypercholesterolemia Obesity (BMI 30-39.9) Impaired glucose tolerance Hypertension Headache Adult general medical exam RLQ abdominal pain Pes anserine bursitis Epigastric abdominal pain Abdominal pain Osteoarthritis Prediabetes Vitamin D deficiency Allergic rhinitis Hypogonadism Anemia Surgical History Hx of right knee surgery (~07/29/23) History of colonoscopy Finger amputation, traumatic History of ankle surgery Family History Father Lung cancer Mother Diabetes Hypertension CVD (cardiovascular disease) Brother No problems noted. Social History (Updated 04/29/24 @ 10:58 by Sherly Hsieh MD) Household Members: Family Housing: House Are you a primary adult caregiver to a significant other at home: No Do you presently have visiting nurse or other home services: No Alcohol intake: current Alcohol intake frequency: holidays/special occasions only Alcohol type: beer Comment: 2x a week 3 drinks Patient Tobacco Use Status: Former Tobacco user Tobacco use type: Cigarette Years Smoked: 1989 e-Cigarette/Vaping Use: Never Used Second Hand Smoke Exposure: No service: No Current occupational status: retired Cognitive needs: No Hearing needs: No Vision needs: Yes Questionnaire PHQ-9 Over the last 2 weeks, how often have you been bothered by any of the following problems? 1. Little interest or pleasure in doing things: not at all 2. Feeling down, depressed, or hopeless: not at all 3. Trouble falling or staying asleep, or sleeping too much: not at all 4. Feeling tired or having little energy: not at all 5. Poor appetite or overeating: not at all 6. Feeling bad about yourself - or that you are a failure or have let yourself or your family down: not at all 7. Trouble concentrating on things, such as reading the newspaper or watching television: not at all 8. Moving or speaking so slowly that other people could have noticed. Or the opposite - being so fidgety or restless that you have been moving around a lot more than usual: not at all 9. Thoughts that you would be better off or of hurting yourself in some way: not at all Total score: 0 Depression Screening Interpretation: Negative Depression Screening Done: Yes Source: Developed by Drs. Fantasma Rios, Emmie Moya, Bean San and colleagues, with an educational yvonne from [employer]. Thrive Questionnaire Date Thrive assessed: 03/13/24 I am a: Patient What is your living situation today?: I choose not to answer this question Within the past 12 months, did the food you bought not last and you didn't have the money to get more?: Never true Within the past 12 months, did you worry whether your food would run out before you got money to buy more?: Never true Do you have trouble paying for medicines?: No Do you have trouble getting transportation to medical appointments?: No Do you have trouble paying your heating and electricity bill?: No Do you have trouble taking care of your child, family member or friend?: No Do you have trouble with day-to-day activities such as bathing, preparing meals, shopping, managing finances, etc.?: No Are you currently unemployed and looking for a job?: No Are you interested in more education?: No Please select the resources that you would like help with: None Currently or been in a relationship where the following occur: No concerns reported THRIVE Score: 0 AUDIT C Alcohol Use Questionnaire (AUDIT-C) 1. How often do you have a drink containing alcohol?: 2-4 times a month 2. How many drinks containing alcohol do you have on a typical day when you are drinking?: 3 or 4 3. How often do you have six or more drinks on one occasion?: Never Total Score: 3 FIDELIA-7 AMB Questionnaire FIDELIA-7 Date FIDELIA - 7 assessed: 03/13/24 Feeling nervous, anxious, or on edge: 0 = Not at all Not being able to stop or control worryin = Not at all Worrying too much about different things: 0 = Not at all Trouble relaxin = Not at all Being so restless that it is hard to sit still: 0 = Not at all Becoming easily annoyed or irritable: 0 = Not at all Feeling afraid as if something awful might happen: 0 = Not at all Total FIDELIA-7 score (0-4 normal; 5-9 mild; 10-14 moderate; 15-21 severe): 0 Source: Developed by Drs. Fantasma Rios, Emmie Moya, Bean San and colleagues, with an educational yvonne from [employer]. Review of Systems Const Denies poor appetite and Denies weakness Eyes Denies no additional complaints ENT Reports Normal hearing present, Denies dizziness, Denies nasal congestion, Denies tinnitus and Denies sore throat Card Denies chest pain, Denies syncope, Denies rapid heart rate and Denies dyspnea Resp Denies cough and Denies dyspnea GI Denies change in stool character, Reports constipation, Denies diarrhea, Denies nausea and Denies vomiting Denies dysuria and Denies urinary frequency Neuro Reports Normal hearing present, Denies confusion, Denies dizziness, Denies s yncope and Denies weakness Psych Denies confusion Physical exam (Primary Care) Vital Signs: Last Vital Signs Pulse 71 04/29/24 10:27 BP 130/76 04/29/24 10:27 Pulse Ox 96 04/29/24 10:27 Oxygen Delivery Method Room Air 04/29/24 10:27 BMI result Body Mass Index 34.3 Tobacco/Smoking Status: Tobacco use Status Tobacco use date assessed 04/29/24 04/29/24 10:33 Patient Tobacco Use Status Former Tobacco user 04/29/24 10:33 Tobacco use type Cigarette 04/29/24 10:33 e-Cigarette/Vaping Use Never Used 04/29/24 10:33 PHQ-9: PHQ-9 Score PHQ-9: Total score 0 04/29/24 10:33 Depression Screening Interpretation: Negative Thrive Assessment: Date of Thrive Assessment Date Thrive assessed 03/13/24 04/29/24 10:33 Currently or been in a relationship where the following occur: No concerns reported Const General: No confusion Orientation/consciousness: No confusion HENMT Other: impacted cerumen bilateral Head: Yes normocephalic Ears: external ears normal Face and sinus: Yes normal facial exam Mouth: moist mucous membranes Throat: Yes tonsils normal Eyes Conjunctivae: conjunctivae normal Pupils: Equal, round and reactive pupils present and Pupil accommodation reflex normal Direct Ophthalmoscopy: normal light reflex Neck Neck: No lymphadenopathy Thyroid: Thyroid normal Chest Chest palpation & inspection: normal inspection of the chest Resp Effort & Inspection: normal respiratory effort and no audible wheezes Auscultation: clear to auscultation bilaterally, no crackles, no wheezes and lung sounds not diminished Cardio Rate: regular rate Rhythm: regular rhythm Peripheral pulses: radial pulses present and dorsalis pedis present GI Other: guaiac negative prostate N Palpation (GI): no masses Auscultation: normal bowel sounds and normoactive bowel sounds Male General Exam: Yes normal external exam Skin General skin exam: no rashes or lesions noted Rashes: no rashes Neuro General: No confusion Cranial nerves: Yes Equal, round and reactive pupils present and Yes Normal hearing present Cognition (Neuro): normal cognition Gait exam (Neuro): Normal gait present Motor exam (neuro): 5/5 motor strength present throughout Deep tendon reflexes (DTR's): Right brachioradialis reflex intensity grade: 2+, Left brachioradialis reflex intensity grade: 2+, Right patellar reflex intensity grade: 2+ and Left patellar reflex intensity grade: 2+ Extrem General: No edema Coding Level of Care Code Est Pt Prev Care >65y(35442) Diagnoses Essential hypertension I10 Hypertension type: essential hypertension Annual physical exam Z00.00 Hypercholesterolemia E78.00 Obesity (BMI 30-39.9) E66.9 Anemia, unspecified type D64.9 Anemia type: unspecified type Impaired glucose tolerance R73.02 Impacted cerumen of both ears H61.23 Assessment & Plan Assessment & Plan (1) Hypertension: Code(s): I10 - Essential (primary) hypertension Category: Medical Qualifiers: Hypertension type: essential hypertension Qualified Code(s): I10 - Essential (primary) hypertension Plan: Continue with blood pressure medication. Decrease salt intake and exercise takes amlodipine 5 mg once a day hydrochlorothiazide 25 mg once a day (2) Annual physical exam: Code(s): Z00.00 - Encounter for general adult medical examination without abnormal findings Category: Medical Plan: Patient is advised to eat healthy, keep well hydrated, keep active and have adequate sleep. (3) Hypercholesterolemia: Code(s): E78.00 - Pure hypercholesterolemia, unspecified Category: Medical Plan: Avoid fried foods, chicken skin, eggs, butter margarine, pastries and meat. Be it pork or beef they have a lot of cholesterol LDL goal of less than 130 and triglyceride of less than 150 on fenofibrate 54 mg once a day atorvastatin 20 mg once (4) Obesity (BMI 30-39.9): Code(s): E66.9 - Obesity, unspecified Category: Medical Plan: Diet and exercise (5) Anemia: Code(s): D64.9 - Anemia, unspecified Category: Medical Qualifiers: Anemia type: unspecified type Qualified Code(s): D64.9 - Anemia, unspecified Plan: Continuing to monitor, stable (6) Impaired glucose tolerance: Code(s): R73.02 - Impaired glucose tolerance (oral) Category: Medical Plan: Decrease the amount of carbohydrate intake, pasta, bread, rice and potatoes are all sugar and that is aside from all the sweet stuff, remember that fruits are good but they are Sweet also. (7) Impacted cerumen of both ears: Code(s): H61.23 - Impacted cerumen, bilateral Category: Medical Plan: will call for irrigation Medications: New meloxicam 15 mg PO DAILY 30 tabs 0RF
[2024-04-29 10:27] VITALS: BP 130/76; PULSE 71; O2SAT 96; BMI 34.3
== END 2024-04-29 11:22 | disposition home or self-care (01) ==
PROVIDERS: PCP Internal Medicine; Visit Provider Internal Medicine
DX: Z00.00 Encounter for general adult medical examination without abnormal findings (principal); E66.811 Obesity, class 1; Z68.34 Body mass index [BMI] 34.0-34.9, adult; I10 Essential (primary) hypertension; E78.00 Pure hypercholesterolemia, unspecified; D64.9 Anemia, unspecified; R73.02 Impaired glucose tolerance (oral); H61.23 Impacted cerumen, bilateral

== ENCOUNTER → 2024-04-29 10:11 | Outpatient (BNVA) | payer MEDICARE, OTHER, SELFPAY | PROVIDERS: PCP Internal Medicine; Visit Provider Internal Medicine | DX: Z00.01 Encounter for general adult medical examination with abnormal findings (principal); I10 Essential (primary) hypertension; E78.00 Pure hypercholesterolemia, unspecified; E66.9 Obesity, unspecified; D64.9 Anemia, unspecified; R73.02 Impaired glucose tolerance (oral); H61.23 Impacted cerumen, bilateral; Z71.3 Dietary counseling and surveillance | CPT/HCPCS: 96127; 99397 ==

== ENCOUNTER 2024-06-10 13:22 | Outpatient (AMB) | payer MEDICARE, OTHER, SELFPAY ==
[2024-06-10 13:25] VITALS: BP 144/80; PULSE 71; O2SAT 97; BMI 36.1
--- NOTE | 2024-06-10 13:25 | A.OFFPC_ITS ---
Vital Signs 06/10/24 13:25 Height 5 ft 5 in Weight 217 lb BMI 36.1 BP 144/80 H Blood Pressure Location Lt brachial Position Sitting Pulse 71 Pulse Source Pulse Oximeter Pulse Oximetry (%) 97 Oxygen Delivery Method Room Air Intake Visit Reasons: left TKA w/ Dr. Mccray 07/27/24 - see comm Intake Note: Patient is here for a Pre-op for left TKA scheduled with Dr. 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: No Allergies lisinopril Allergy (Intermediate, Verified 06/10/24 13:44) cough Medication List - Last Reconciled 06/10/24 by Leanne Zhang PA-C acetaminophen 650 mg (2 x 325 mg) PO Q6H PRN 30 days amitriptyline 10 mg PO BEDTIME amlodipine 5 mg PO DAILY 90 days amoxicillin 2,000 mg (4 x 500 mg) PO ONCE 1 day atorvastatin 20 mg PO DAILY cholecalciferol (vitamin D3) 50 mcg PO DAILY cyanocobalamin (vitamin B-12) 1,000 mcg PO DAILY docusate sodium 100 mg PO BID 30 days fenofibrate 54 mg PO DAILY fluticasone propionate 50 mcg/actuation 2 sprays intranasal DAILY PRN folic acid 1 mg PO DAILY gabapentin 100 mg PO BEDTIME 7 days hydrochlorothiazide 25 mg PO DAILY meloxicam 15 mg PO DAILY omeprazole 20 mg PO DAILY PRN testosterone (AndroGel) 4 pumps topical DAILY 30 days walker Folding front wheeled walker Tobacco use date assessed: 04/29/24 Fall risk assessment: No Falls in past year Last assessed Fall Risk: 06/10/24 Dental Screening Dental Screen Date: 03/13/24 HPI left TKA w/ Dr. Mccray 07/27/24 - see comm HPI Details 74-year-old male with past medical histo ry of impaired glucose tolerance, hypercholesterolemia, hypertension last seen by Dr. Hsieh 04/2024 coming in for preoperative visit.?Patient is scheduled to have left total knee replacement with Dr. Mccray 07/27/2024. Hypertension: Blood pressure slightly elevated however typically values are within normal limits and values at home have been normal. Presently on hydrochlorothiazide, amlodipine Impaired glucose tolerance: Last A1c 6.0% no diagnosis of diabetes at this time. Patient has no history of SD, CVA, CHF or diabetes mellitus. Patient has had surgery and anesthesia in the past without complication. [facility] Medical History Annual physical exam Hypercholesterolemia Obesity (BMI 30-39.9) Impaired glucose tolerance Hypertension Headache Adult general medical exam RLQ abdominal pain Pes anserine bursitis Epigastric abdominal pain Abdominal pain Osteoarthritis Prediabetes Vitamin D deficiency Allergic rhinitis Hypogonadism Anemia Surgical History Hx of right knee surgery (~07/29/23) History of colonoscopy Finger amputation, traumatic History of ankle surgery Family History Father Lung cancer Mother Diabetes Hypertension CVD (cardiovascular disease) Brother No problems noted. Social History Household Members: Family Housing: House Are you a primary healthcare translator to a significant other at home: No Do you presently have visiting nurse or other home services: No Alcohol intake: current Alcohol intake frequency: holidays/special occasions only Alcohol type: beer Comment: 2x a week 3 drinks Patient Tobacco Use Status: Former Tobacco user Tobacco use type: Cigarette Years Smoked: 1989 e-Cigarette/Vaping Use: Never Used Second Hand Smoke Exposure: No service: No Current occupational status: retired Cognitive needs: No Hearing needs: No Vision needs: Yes Questionnaire Thrive Questionnaire Date Thrive assessed: 04/23/24 I am a: Patient What is your living situation today?: I choose not to answer this question Within the past 12 months, did the food you bought not last and you didn't have the money to get more?: Never true Within the past 12 months, did you worry whether your food would run out before you got money to buy more?: Never true Do you have trouble paying for medicines?: No Do you have trouble getting transportation to medical appointments?: No Do you have trouble paying your heating and electricity bill?: No Do you have trouble taking care of your child, family member or friend?: No Do you have trouble with day-to-day activities such as bathing, preparing meals, shopping, managing finances, etc.?: No Are you currently unemployed and looking for a job?: No Are you interested in more education?: No Please select the resources that you would like help with: None Currently or been in a relationship where the following occur: No concerns reported THRIVE Score: 0 AUDIT C Alcohol Use Questionnaire (AUDIT-C) 1. How often do you have a drink containing alcohol?: 2-4 times a month 2. How many drinks containing alcohol do you have on a typical day when you are drinking?: 3 or 4 3. How often do you have six or more drinks on one occasion?: Never Total Score: 3 FIDELIA-7 AMB Questionnaire FIDELIA-7 Date FIDELIA - 7 assessed: 03/13/24 Source: Developed by Drs. Fantasma Rios, Emmie Moya, Bean San and colleagues, with an educational yvonne from [employer]. Review of Systems Const Denies body aches, Denies fatigue, Denies fever(s), Denies frequent falls, Denies headache(s) and Denies weakness Eyes Reports no additional complaints and Denies change in vision ENT Denies dysphagia, Denies dizziness, Denies facial pain, Denies headache(s), Denies nasal congestion and Denies odynophagia Card Denies chest pain, Denies syncope, Denies irregular heart rhythm, Denies leg edema, Denies lightheadedness and Denies dyspnea Resp Denies cough and Denies dyspnea GI Denies constipation, Denies dysphagia, Denies dyspepsia, Denies diarrhea, Denies nausea, Denies odynophagia and Denies vomiting Reports no additional complaints Musc Details: left knee pain Denies back pain and Denies myalgias Skin/Breast Reports system reviewed and no additional complaints, except as documented Neuro Denies dizziness, Denies syncope, Denies frequent falls, Denies headache(s) and Denies weakness Psych Reports no additional complaints Endo Denies fatigue Physical exam (Primary Care) Vital Signs: Last Vital Signs Pulse 71 06/10/24 13:25 BP 144/80 H 06/10/24 13:25 Pulse Ox 97 06/10/24 13:25 Oxygen Delivery Method Room Air 06/10/24 13:25 BMI result Body Mass Index 36.1 Tobacco/Smoking Status: Tobacco use Status Tobacco use date assessed 04/29/24 06/10/24 13:26 Patient Tobacco Use Status Former Tobacco user 11/20/24 13:26 Tobacco use type Cigarette 06/10/24 13:26 e-Cigarette/Vaping Use Never Used 06/10/24 13:26 Thrive Assessment: Date of Thrive Assessment Date Thrive assessed 04/23/24 06/10/24 13:26 Currently or been in a relationship where the following occur: No concerns reported Const General: cooperative, healthy appearing, comfortable and no acute distress Orientation/consciousness: patient oriented x3 HENMT Head: Yes normocephalic Ears: hearing grossly normal bilaterally General nose exam: Normal external nose present Eyes General: appearance normal, both eyes and all related structures Conjunctivae: conjunctivae normal Neck Neck: Yes full ROM and Yes no lymphadenopathy Resp Effort & Inspection: normal respiratory effort Auscultation: clear to auscultation bilaterally, no crackles, no rales, no rhonchi and no wheezes Cardio Rate: regular rate Rhythm: regular rhythm GI Palpation (GI): Soft to palpation, not firm, nontender, no guarding and not rigid Skin General skin exam: no rashes or lesions noted Neuro General: patient oriented x3 Gait exam (Neuro): Normal gait present Extrem General: Yes normal to inspection, Yes full ROM and No edema Psych Affect: normal affect Attitude: cooperative Insight: Good insight present (Psych) Judgement: Good judgement present (Psych) Coding Level of Care Code Est Pt Level 3 (56142) Diagnoses Pre-op evaluation Z01.818 Assessment & Plan Assessment & Plan (1) Pre-op evaluation: Code(s): Z01.818 - Encounter for other preprocedural examination Category: Medical Plan: Regarding preop clearance, the patient is at moderate risk for proposed surgery due to age and comorbidities. Reviewed with the patient that no surgery is completely free of risk and that this examination is to assist the surgeon in reviewing informed consent. Discussed with patient the meloxicam needs to be discontinued 7 days prior to surgery and to follow any other recommendations given by the surgeon. EKG and blood work is ordered an addendum with clearance will be added once the tests have been completed. Plan This note was constructed using voice recognition software. While every effort has been made to ensure accuracy and staff nuclear medicine technologist, still areas may have been included sometimes these areas may affect the content or meeting of the given symptoms. Total time spent caring for the patient today was 30 minutes. This includes time spent before the visit reviewing the chart, time spent during the visit, and time spent after the visit and documentation. Orders: Orders ECG 12 lead EKG Today Z01.818 - Encounter for other preprocedural examination Complete Blood Count Auto Diff Today Z01.818 - Encounter for other preproce dural examination Comprehensive Met. Panel Today Z01.818 - Encounter for other preprocedural examination
== END 2024-06-10 14:10 | disposition home or self-care (01) ==
PROVIDERS: PCP Internal Medicine
DX: Z01.818 Encounter for other preprocedural examination (principal)

== ENCOUNTER → 2024-06-10 13:22 | Outpatient (BNVA) | payer MEDICARE, OTHER, SELFPAY | PROVIDERS: PCP Internal Medicine | DX: Z01.818 Encounter for other preprocedural examination (principal) | CPT/HCPCS: 99212 ==

== ENCOUNTER → 2024-06-26 08:46 | Outpatient (BNVA) | payer MEDICARE, OTHER, SELFPAY | PROVIDERS: PCP Internal Medicine | DX: Z01.818 Encounter for other preprocedural examination (principal) ==

== ENCOUNTER → 2024-07-06 10:05 | Outpatient (BNV) | payer MEDICARE, OTHER, SELFPAY | PROVIDERS: Admitting Provider Orthopaedic Surgery; PCP Internal Medicine; Visit Provider Internal Medicine | DX: I49.3 Ventricular premature depolarization (principal); Z01.810 Encounter for preprocedural cardiovascular examination; M17.12 Unilateral primary osteoarthritis, left knee | CPT/HCPCS: 93010 ==

== ENCOUNTER 2024-08-06 07:45 | Outpatient (AMB) | payer MEDICARE, OTHER, SELFPAY ==
--- NOTE | 2024-08-06 07:48 | MHC.OFFVIS ---
Intake Visit Reasons: L TKA w/ 08/14/24 Intake Note: Ck is a 73 year old male who presents with complaints of progressively worsening left knee pain. The patient did undergo right total knee replacement surgery on 07/29/2023. He reports minimal discomfort in his right knee. He describes his left knee pain as sharp and severe in nature. Left knee pain has gotten worse over the last few years in spite of continued non operative treatments. Has had injections in the past which gave him minimal relief. He has also done physical therapy which aggravated his pain. He has tried Tylenol and anti-inflammatory medicines which gave him no relief. The patient has difficulty walking even short distances because of his pain. At this point his left knee pain is interfering with his activities of daily living and his ability to sleep well through the night. Allergies lisinopril Allergy (Intermediate, Verified 08/06/24 07:53) cough Medication List - Last Reconciled 08/06/24 by Ron Mccray MD amitriptyline 10 mg PO BEDTIME amlodipine 5 mg PO DAILY 90 days amoxicillin 2,000 mg (4 x 500 mg) PO ONCE 1 day atorvastatin 20 mg PO DAILY cholecalciferol (vitamin D3) 50 mcg PO DAILY cyanocobalamin (vitamin B-12) 1,000 mcg PO DAILY fenofibrate 54 mg PO DAILY fluticasone propionate 50 mcg/actuation 2 sprays intranasal DAILY PRN hydrochlorothiazide 25 mg PO DAILY meloxicam 15 mg PO DAILY PRN testosterone (AndroGel) 4 pumps topical DAILY 30 days walker Folding front wheeled walker [facility] Medical History Back pain History of headache Numbness Osteoarthritis Pes anserine bursitis Annual physical exam Prediabetes Epigastric abdominal pain Abdominal pain RLQ abdominal pain Adult general medical exam Headache Hypercholesterolemia Vitamin D deficiency Allergic rhinitis Obesity (BMI 30-39.9) Hypogonadism Anemia Impaired glucose tolerance Hypertension Surgical History Hx of total knee replacement History of colonoscopy Finger amputation, traumatic History of ankle surgery Family History Father Lung cancer Mother Diabetes Hypertension CVD (cardiovascular disease) Brother No problems noted. Social History Household Members: Family Housing: House Are you a primary resident care supervisor to a significant other at home: No Do you presently have visiting nurse or other home services: No Alcohol intake: current Alcohol intake frequency: a few times a week Alcohol type: beer Comment: 2x a week 3 drinks Patient Tobacco Use Status: Former Tobacco user Tobacco use type: Cigarette Years Smoked: quit 1989 e-Cigarette/Vaping Use: Never Used Second Hand Smoke Exposure: No service: No Current occupational status: retired Cognitive needs: No Hearing needs: No Vision needs: Yes Physical Exam Const Other: Well-nourished well-developed very friendly male awake alert and oriented x3 in no acute distress Extrem Other: Bilateral lower extremity examination shows good capillary refill, no skin lesions noted, normal sensation light touch Left knee examination shows a minimal effusion, palpable crepitus with range of motion, pain with range of motion, range of motion from -3 degrees to 115 degrees, no instability Assessment & Plan Assessment & Plan (1) Arthritis of left knee: Code(s): M17.12 - Unilateral primary osteoarthritis, left knee Category: Medical Plan Mr. Capone presents with progressively worsening left knee pain due to end-stage degenerative joint disease. I had a lengthy discussion with the patient regarding the treatment options. At this point he has failed continued non operative treatments. The risks and benefits of left total knee replacement surgery were discussed at length with the patient. The patient wishes to proceed. patient services assistant will be consulted following his surgery for home physical therapy and nursing. The patient will follow-up as instructed. Feel free to call me at any time should questions regarding his orthopedic management arise. I spent 22 minutes in reviewing the patient's records and imaging studies, seeing the patient and documenting in the medical record. Orders: Orders Type and Screen Today Z01.818 - Encounter for other preprocedural examination Hemoglobin A1c Today Z01.818 - Encounter for other preprocedural examination Coding Level of Care Code Est Pt Level 3 (15044) Complex EM visit Add On G2211 Diagnoses Arthritis of left knee M17.12
== END 2024-08-06 07:58 | disposition home or self-care (01) ==
PROVIDERS: PCP Internal Medicine; Visit Provider Orthopaedic Surgery
DX: M17.12 Unilateral primary osteoarthritis, left knee (principal)
CPT/HCPCS: 99213; G2211

== ENCOUNTER → 2024-08-06 07:45 | Outpatient (BNVA) | payer MEDICARE, OTHER, SELFPAY | PROVIDERS: PCP Internal Medicine; Visit Provider Orthopaedic Surgery | DX: M17.12 Unilateral primary osteoarthritis, left knee (principal) | CPT/HCPCS: 99212 ==

== ENCOUNTER 2024-08-14 05:53 | Day surgery (SDC) | payer MEDICARE, OTHER, SELFPAY ==
--- NOTE | 2024-07-06 10:05 | ECG_ITS ---
Test Reason : pre op Blood Pressure : / mmHG Vent. Rate : 077 BPM Atrial Rate : 077 BPM P-R Int : 160 ms QRS Dur : 078 ms QT Int : 400 ms P-R-T Axes : 062 013 045 degrees QTc Int : 452 ms Sinus rhythm with occasional Premature ventricular complexes Otherwise normal ECG When compared with ECG of 28-JUN-2023 08:23, Premature ventricular complexes are now Present Referred By: Leanne Zhang Electronically Signed By:STEPHANIE MORGAN
[2024-07-20 12:05] VITALS: BP 166/80; PULSE 77; RESP 16; O2SAT 97; BMI 35.0
[2024-07-20 14:39] LABS: MRSA Nasal PCR NEGATIVE (Negative); SA Nasal PCR NEGATIVE (Negative)
[2024-08-06 09:17] LABS: Estimated Average Glucose 120 mg/dL; Hemoglobin A1C 135.7866 umol/L; Hemoglobin A1c % 5.8 % (<6.0); Total Hemoglobin (HGBA1C) 3373.9842 umol/L
[2024-08-14] VITALS (13 sets, daily range): BP systolic 93–151; BP diastolic 55–92; PULSE 62–84; RESP 12–20; TEMP 36.1–36.6; O2SAT 92–99; BMI 34.5
[2024-08-14] MEDS: vancomycin HCL 1,500 MG in 0.9 % Sodium Chloride 500 ML 333.33 MG IV (07:07)
[2024-08-14] MEDS: Lactated Ringers 1,000 ML 100 ML IVCONT ×3 (07:08→23:45)
--- NOTE | 2024-08-14 07:20 | P.CONAN_ITS ---
Documented by User: Tiffany Hernandez NP 08/12/24 13:22 HPI - Anesthesia Eval Consult details Narrative: 74yo M for Left Knee Replacement Total s/p Right knee 07/2023 with spinal/block Medically optimized per PCP REPLACED BY [facility] Active Problems Active Problems: All Active Problems (Updated 07/20/24 @ 11:56 by Lyn Lacey RN) Pre-op evaluation (Acute) COVID-19 virus infection (Acute) Right knee pain (Acute) Status post total right knee replacement (Acute ~07/29/23) Impacted cerumen of both ears (Acute) Arthritis of right knee (Acute) Arthritis of left knee (Acute) Hypogonadism in male (Acute) Annual physical exam (Acute) Hypertension (Acute) Hypercholesterolemia (Acute) Obesity (BMI 30-39.9) (Acute) Anemia (Acute) Impaired glucose tolerance (Acute) Past Medical History Medical History Back pain History of headache Numbness Osteoarthritis Pes anserine bursitis Annual physical exam Prediabetes Epigastric abdominal pain Abdominal pain RLQ abdominal pain Adult general medical exam Headache Hypercholesterolemia Vitamin D deficiency Allergic rhinitis Obesity (BMI 30-39.9) Hypogonadism Anemia Impaired glucose tolerance Hypertension Family History Family History Father Lung cancer Mother Diabetes Hypertension CVD (cardiovascular disease) Brother No problems noted. Family history of problems with anesthesia: No Surgical History Surgical History Hx of total knee replacement History of colonoscopy Finger amputation, traumatic History of ankle surgery History of Problems with Anesthesia: No Social History Social History Household Members: Family Housing: House Are you a primary home care nurse to a significant other at home: No Do you presently have visiting nurse or other home services: No Alcohol intake: current Alcohol intake frequency: a few times a week Alcohol type: beer Comment: 2x a week 3 drinks Patient Tobacco Use Status: Former Tobacco user Tobacco use type: Cigarette Years Smoked: quit 1989 e-Cigarette/Vaping Use: Never Used Second Hand Smoke Exposure: No Use of substances other than those prescribed or required for medical reasons: No Have you been hit, kicked, punched, or otherwise hurt by someone within the past year? If so, by whom?: No Are you DNR?: No Advance Directives: No Advance Directives Information Provided: Yes Advance Directives on File: No Recently lost weight without trying: No Eating poorly because of decreased appetite: No Nutrition Risks: No Nutritional Risk Poor oral hygiene: Yes (full dentures upper and lower) service: No Current occupational status: retired Cognitive needs: No Hearing needs: No Vision needs: Yes Meds Allergies Allergy/AdvReac Type Severity Reaction Status Date / Time lisinopril Allergy Intermediate cough Verified 08/14/24 06:15 Active Medications: Current Medications Cefazolin Sodium/Dextrose (Ancef) 2 gm in 50 mls @ 100 mls/hr IV PREOP ONE Stop: 08/14/24 05:40 Vancomycin HCl 1,000 mg/ (Sodium Chloride) 270 mls @ 270 mls/hr IV PREOP ONE Stop: 08/14/24 06:10 Home Medications ?Medication ?Instructions ?Recorded ?Confirmed ?Last Taken ?Type hydrochlorothiazide 25 mg tablet 25 mg PO DAILY 06/13/20 08/06/24 Unknown History meloxicam 15 mg tablet 15 mg PO DAILY PRN Pain 07/20/24 08/06/24 Unknown History Exam Height,Weight and Vital Signs: Height 5 ft 6 in Weight 98.43 kg Last Vital Signs Pulse 77 07/20/24 12:05 Resp 16 07/20/24 12:05 BP 166/80 H 07/20/24 12:05 Pulse Ox 97 07/20/24 12:05 O2 Del Method Room Air 07/20/24 12:05 Pertinent Lab Results Pertinent Lab Results: Laboratory Tests 07/20/24 08/06/24 08/06/24 12:20 08:16 08:26 Estimat Average Glucose 120 Hemoglobin A1c % 5.8 Nasal Screen MRSA (PCR) NEGATIVE Nasal S. aureus Screen NEGATIVE Nasal MRSA/S.aureus Interp SEE NOTE Blood Type A Positive Antibody Screen NEGATIVE Laboratory Tests 04/24/24 09:03 WBC 8.4 Hgb 12.7 L Hct 37.5 L Plt Count 213 Sodium 141 Potassium 4.0 Chloride 110 H Carbon Dioxide 22 BUN 20 H Creatinine 0.85 Narrative Narrative: EKG 06/2024 Vent. Rate : 077 BPM Atrial Rate : 077 BPM P-R Int : 160 ms QRS Dur : 078 ms QT Int : 400 ms P-R-T Axes : 062 013 045 degrees QTc Int : 452 ms Sinus rhythm with occasional Premature ventricular complexes Otherwise normal ECG When compared with ECG of 28-JUN-2023 08:23, Premature ventricular complexes are now Present Assessment and Plan Assessment Anesthesia Assessment: Chart Reviewed Final Anesthetic Review Family History of Problems with Anesthesia: No History of Problems with Anesthesia: No Documented by User: Raina Thomas DO 08/14/24 07:47 REPLACED BY [facility] Past Medical History Medical History Back pain History of headache Numbness Osteoarthritis Pes anserine bursitis Annual physical exam Prediabetes Epigastric abdominal pain Abdominal pain RLQ abdominal pain Adult general medical exam Headache Hypercholesterolemia Vitamin D deficiency Allergic rhinitis Obesity (BMI 30-39.9) Hypogonadism Anemia Impaired glucose tolerance Hypertension Family History Family History Father Lung cancer Mother Diabetes Hypertension CVD (cardiovascular disease) Brother No problems noted. Family history of problems with anesthesia: No Surgical History Surgical History Hx of total knee replacement History of colonoscopy Finger amputation, traumatic History of ankle surgery History of Problems with Anesthesia: No Social History Social History Household Members: Family Housing: House Are you a primary home care nurse to a significant other at home: No Do you presently have visiting nurse or other home services: No Alcohol intake: current Alcohol intake frequency: a few times a week Alcohol type: beer Comment: 2x a week 3 drinks Patient Tobacco Use Status: Former Tobacco user Tobacco use type: Cigarette Years Smoked: quit 1989 e-Cigarette/Vaping Use: Never Used Second Hand Smoke Exposure: No Use of substances other than those prescribed or required for medical reasons: No Have you been hit, kicked, punched, or otherwise hurt by someone within the past year? If so, by whom?: No Are you DNR?: No Advance Directives: No Advance Directives Information Provided: Yes Advance Directives on File: No Recently lost weight without trying: No Eating poorly because of decreased appetite: No Nutrition Risks: No Nutritional Risk Poor oral hygiene: Yes (full dentures upper and lower) service: No Current occupational status: retired Cognitive needs: No Hearing needs: No Vision needs: Yes Meds Allergies Allergy/AdvReac Type Severity Reaction Status Date / Time lisinopril Allergy Intermediate cough Verified 08/14/24 06:15 Home Medications ?Medication ?Instructions ?Recorded ?Confirmed ?Last Taken ?Type hydrochlorothiazide 25 mg tablet 25 mg PO DAILY 06/13/20 08/06/24 Unknown History meloxicam 15 mg tablet 15 mg PO DAILY PRN Pain 07/20/24 08/06/24 Unknown History Exam Exam Date and Time: 08/14/24 0720 Height,Weight and Vital Signs: Height 5 ft 6 in Weight 98.43 kg Last Vital Signs Pulse 77 07/20/24 12:05 Resp 16 07/20/24 12:05 BP 166/80 H 07/20/24 12:05 Pulse Ox 97 07/20/24 12:05 O2 Del Method Room Air 07/20/24 12:05 Height 5 ft 6 in Weight 97.069 kg Vital Signs Pulse Rate 77 07/20/24 12:05 Respiratory Rate 16 07/20/24 12:05 Blood Pressure 166/80 H 07/20/24 12:05 Pulse Oximetry 97 07/20/24 12:05 Oxygen Delivery Method Room Air 07/20/24 12:05 Temperature 97.8 F 08/14/24 07:12 Pulse Rate 75 08/14/24 07:12 Respiratory Rate 14 08/14/24 07:12 Blood Pressure 151/92 H 08/14/24 07:12 Pulse Oximetry 96 08/14/24 07:12 Oxygen Delivery Method Room Air 08/14/24 07:12 Airway Mallampati Class: III TM Dist: >3cm Neck ROM: Full Loose/Missing/Broken Teeth: Yes (edentulous) Heart: S1S2 Lungs: CTAB Assessment and Plan Assessment Anesthesia Assessment: Anesthesia Plan Discussed and Chart Reviewed Final Anesthetic Review Family History of Problems with Anesthesia: No History of Problems with Anesthesia: No NPO: Yes ASA Class: II Final Preanesthetic Review: No Changes in Pt Med Stat, Meds/Allgs Chart Reviewed, Consent Obtained/Reviewed and Anes Risks/Benef Reviewed Patient Risk: Low Procedure Risk: Intermediate Anesthetic Plan Anesthetic Plan: Spinal, Regional Block (left adductor canal and left ipack) and Agree w/ Assess. and Plan Disposition: Standard PACU
--- NOTE | 2024-08-14 10:52 | PM.OP ---
Brief Operative Note Date of Service: 08/14/24 Pre-op diagnosis: Left knee degenerative joint disease Post-op diagnosis: same Procedure: Left total knee arthroplasty Implants: Murdock Triathlon cemented posterior stabilized total knee arthroplasty with a femoral component size 5 left, tibial component size 5, polyethylene liner size 5 with 9 mm of thickness, an asymmetric patellar component size 29 with 9 mm of thickness Surgeon: Ron Mccray MD Anesthesia: regional and spinal Was an Storage Garage Attendant used for this Procedure?: No Storage Garage Attendant: Nay Mcdaniels Estimated blood loss (mL): 200 Pathology: other (Bony fragments from the left femur, tibia and patella) Condition: stable Disposition: PACU
--- NOTE | 2024-08-14 10:54 | W.PM.OPN ---
Operative Note Operative Note Date of Service: 08/14/24 Narrative: After the patient was identified as Ck Capone and his left knee was initialed by myself the patient was brought to the holding area where a left leg nerve block was performed by the anesthesiologist in routine fashion. The patient was then brought to the operating room where conscious sedation and spinal anesthesia were performed by the anesthesiologist in routine fashion. The patient was given both IV Ancef and IV vancomycin preoperatively for infection prophylaxis. The patient's left lower extremity was prepped and draped in sterile fashion. A formal time-out was completed. The patient's left knee was placed onto a small bump to produce 30? of knee flexion during exposure. A #10 scalpel blade was used to make a midline incision extending 1 handbreadth proximal and distal to the patella. A second #10 scalpel blade was used to dissect the subcutaneous tissues down to the extensor mechanism. The subcutaneous flaps were maintained as thick as possible. A medial parapatellar arthrotomy was then performed using a #10 scalpel blade. The arthrotomy was begun just medial to the patellar tendon. The arthrotomy was continued 1 cm medial to the patella and then 5 mm into the medial aspect of the quadriceps tendon. The infrapatellar fat pad was partially excised to help with exposure. The soft tissue retinaculum was raised one-half of the way around the medial aspect of the proximal tibia. The patella was everted and the knee was flexed to 90?. There was no injury to the patellar tendon or its insertion onto the tibial tubercle. A drill bit was introduced into the distal aspect of the femur with a starting point 1 cm anterior to the origin of the posterior cruciate ligament. The intramedullary alignment jayne was put into place. The distal alignment guide was set for a 5 degree valgus cut. The distal cutting block was put into place and was held with 4 pins. The intramedullary alignment jayne was removed. Soft tissues were retracted in the distal femoral cut was made using a sagittal saw. The distal aspect of the femur measured to be a size 5 left component. Two drill holes were placed into the distal aspect of the femur marking 3? of external rotation. The distal cutting block was impacted into place and was held with 2 pins. Soft tissues were retracted and the 4 distal femoral cuts were made using a sagittal saw. Final notching and drilling of the distal aspect of the femur were performed in routine fashion. The trial femoral component was impacted into place. The knee was taken through a full range of motion. The patella tracked well. The patella was everted and the knee was flexed to 90?. The trial component was removed and our attention was directed to the proximal tibia. The medial and lateral menisci were removed using a #10 scalpel blade. A small rim of the medial meniscus was left intact to help prevent injury to the medial collateral ligament. A drill bit was then introduced into the proximal tibia with a starting point midway from medial to lateral and one-third of the way posteriorly. The intramedullary alignment jayne was put into place. The proximal tibial cutting guide was placed over the alignment jayne in line with the 2nd toe. The guide was held in place using 3 pins. The intramedullary alignment jayne was removed. Soft tissues were retracted and the proximal tibial cut was made using a sagittal saw. The proximal tibia measured to be a size 5 component. The tibial tray was put into place with a 9 mm liner. The femoral component was impacted into place. The knee was taken through a full range of motion. There was full flexion and full extension. There was no instability with varus or valgus stress testing with the knee in flexion or extension. The patella tracked well with no medially directed force. The rotation of the tibial tray was marked using electrocautery with the knee in extension. The patella was everted and the knee was flexed to 90?. All trial components were removed. The tibial tray was placed onto the proximal tibia in line with the electrocautery bertha. The tray was held in place using 3 pins. Final broaching of the proximal tibia was performed in routine fashion. The trial liner and trial femoral component were put into place. The knee was brought into extension and our attention was directed to the patella. The patella measured 25 mm in thickness. The patellar resection guide was set for a 10 mm resection. Soft tissues were retracted and the patella cut was made using a sagittal saw. The remaining patella measured 15 mm in thickness. The undersurface of the patella was measured to be a size 29 asymmetric component. Three drill holes were placed into the undersurface of the patella in routine fashion. The trial component was put into place. The knee was taken through a full range of motion. The patella tracked well. The patella was everted and the knee was flexed to 90?. All trial components were removed. The knee was once again brought into extension and placed onto a small bump. The knee joint was irrigated with copious amounts of normal saline solution via pulse lavage while the cement was mixed. The patella was everted and the knee was flexed to 90?. A small amount of cement was placed along the posterior aspects of the tibial and femoral components. Cement was then pressurized into the proximal tibia. The tibial component was impacted into place. Any excess cement was removed. The polyethylene liner was then impacted into place. Cement was then pressurized into the distal aspect of the femur. A small amount of cement was placed into the intramedullary canal to help reduce bleeding. The femoral component was impacted into place. Any excess cement was removed. The knee was then brought into extension. Cement was pressurized into the undersurface of the patella. The patellar component was put into place and was held with a patella clamp. Any excess cement was removed. Once the cement had hardened the patellar clamp was removed. The knee was taken through a full range of motion. There was full flexion and extension. There was no instability with varus or valgus stress testing with the knee in flexion or extension. The patella tracked well with no medially directed force. The knee joint was irrigated with copious amounts of normal saline solution via pulse lavage. Any significant bleeding vessels were coagulated. The patient's left knee was placed onto a small bump. The arthrotomy was closed with #2 Ethibond [id number] interrupted suture as well as #1 Vicryl [id number] interrupted suture. The wound was once again irrigated. The subcutaneous tissues were closed with 0 Vicryl and 2-0 Vicryl interrupted sutures. The skin was closed with skin supa. Dry sterile dressing and Michael bandages were placed over the patient's left knee. The patient was awake and alert. The patient was transferred to the recovery room in stable condition.
--- NOTE | 2024-08-14 13:09 | PHA.MEDREC ---
Addendum entered by Dominique Webb [facility] 08/14/24 13:41: reviewed, will let provider know about HCTZ and testosterone. Original Note: Pharmacy Consult ? Medication Reconciliation Pharmacy has completed the medication reconciliation. Spoke with Patient and he confirmed his medications. He confirmed he is still taking the Hydrochlorothiazide 25mg tablet once daily and states he is still filling that at [facility] on [facility]; I called and spoke with [facility] about it and they confirmed they have no claims from at least 2 years for that medication being filled at their facility. He also confirmed he is still using the Testosterone Gel Pump and states he is applying 2 pumps onto each arm daily and he states he is getting that at [facility] on [facility]; after speaking with them they state they have not filled that since 09/23/2023. He confirmed his Dr stopped the Meloxicam 15mg tab about 8 days ago due to the surgery the patient got today and states he is not sure if he is gonna be starting it again or not. The patient also confirmed he has at home some Amoxicillin 500mng tabs for when he goes to the Dentist at home; I took that off the med rec since he is not going to the dentist any time soon he stated. He confirmed he took his medications yesterday.
[2024-08-14] MEDS: oxyCODONE HCl Immed Release 5 MG TABLET 10 MG PO (15:17)
[2024-08-14] MEDS: ceFAZolin Sodium/Dextrose,Iso 2 GM/50 ML PIGGYBACK IV ×2 (15:17→23:46)
--- NOTE | 2024-08-14 16:18 | P.CONHOSP_ITS ---
History of Present Illness Data of Consult Service Date: 08/14/24 Primary Care Provider: Sherly Hsieh MD [facility] Reason for consult: Medical management Pt is a 74-year-old male with a PMH significant for HTN, HLD, and prediabetes who was admitted to the hospital under orthopedic services for left TKA. POD0. Hospitalist consult for medical management. Pt seen and evaluated where he is resting comfortably in bed. Reports left knee pain well-controlled. Denies numbness and tingling in lower left extremity. Chronic right knee numbness. Pt otherwise has no acute medical complaints. Denies chest pain/pressure, palpitations. No shortness a breath or difficulty breathing. No cough. Denies nausea, vomiting, fever, chills, abdominal pain. Has already been seen by PT and been up and out of bed. Pt reports has been pre-diabetic for over a year, monitored closely by PCP. Review of Systems Review of Systems: Pt has no acute medical complaints at this time [facility] Medical History Back pain History of headache Numbness Osteoarthritis Pes anserine bursitis Annual physical exam Prediabetes Epigastric abdominal pain Abdominal pain RLQ abdominal pain Adult general medical exam Headache Hypercholesterolemia Vitamin D deficiency Allergic rhinitis Obesity (BMI 30-39.9) Hypogonadism Anemia Impaired glucose tolerance Hypertension Family History Father Lung cancer Mother Diabetes Hypertension CVD (cardiovascular disease) Brother No problems noted. Surgical History Hx of total knee replacement History of colonoscopy Finger amputation, traumatic History of ankle surgery Social History Household Members: Spouse Housing: House Are you a primary healthcare market consultant to a significant other at home: No Do you presently have visiting nurse or other home services: No Alcohol intake: current Alcohol intake frequency: a few times a week Alcohol type: beer Patient Tobacco Use Status: Former Tobacco user Tobacco use type: Cigarette Years Smoked: quit 1989 e-Cigarette/Vaping Use: Never Used Second Hand Smoke Exposure: No Use of substances other than those prescribed or required for medical reasons: No Currently Displaying Signs/Symptoms of Drug Intoxication Withdrawal: No Have you been hit, kicked, punched, or otherwise hurt by someone within the past year? If so, by whom?: No Do you feel safe in your current relationship?: Yes Is there a partner from a previous relationship who is making you feel unsafe now?: No Are you made to feel afraid or neglected: No Are you DNR?: No Advance Directives: No Advance Directives Information Provided: Yes Advance Directives on File: No Do you have a plan to hurt others: No Plan Recently lost weight without trying: No How much weight loss: Not applicable Eating poorly because of decreased appetite: No Nutrition screen score: 0 Nutrition Risks: No Nutritional Risk Poor oral hygiene: No service: No Current occupational status: retired Cognitive needs: No Hearing needs: No Vision needs: Yes Meds Allergies Allergy/AdvReac Type Severity Reaction Status Date / Time lisinopril Allergy Intermediate cough Verified 08/14/24 06:15 Active Medications: Current Medications Acetaminophen (Acetaminophen 325 Mg Tablet) 650 mg PO Q6H PRN PRN Reason: Pain, Mild 1-3,fever,headache Amitriptyline HCl (Amitriptyline Hcl 10 Mg Tablet) 10 mg PO BEDTIME SHERRON Aspirin (Aspirin 325 Mg Tablet) 325 mg PO BID SHERRON Celecoxib (Celecoxib 200 Mg Capsule) 200 mg PO BID SHERRON Docusate Sodium (Docusate Sodium 100 Mg Capsule) 100 mg PO BID SHERRON Fluticasone Propionate (Fluticasone Propionate Nasal 16 Gm [place]) 2 spray NOSTRIL-B DAILY PRN PRN Reason: Allergy Symptoms Gabapentin (Gabapentin 100 Mg Capsule) 100 mg PO BEDTIME SHERRON Hydromorphone HCl (Hydromorphone Hcl 0.5 Mg/0.5 Ml Syringe) 0.25 mg IVPUSH Q4H PRN; Protocol PRN Reason: Pain, mod (Pain Scale 7-10) Hydromorphone HCl (Hydromorphone Hcl 0.5 Mg/0.5 Ml Syringe) 0.5 mg IVPUSH Q4H PRN; Protocol PRN Reason: Pain, Severe (Pain Scale 7-10) Cefazolin Sodium/Dextrose (Ancef) 2 gm in 50 mls @ 100 mls/hr IV Q8H [facility] Last Infusion: 08/14/24 15:56 Dose: Infused Lactated Ringer's (Lr) 1,000 mls @ 100 mls/hr IVCONT .Q10H [facility] Last Admin: 08/14/24 13:33 Dose: 100 mls/hr Vancomycin HCl 1,000 mg/ (Sodium Chloride) 270 mls @ 270 mls/hr IV POSTOP@1900 ONE Stop: 08/14/24 19:59 Methocarbamol (Methocarbamol 500 Mg Tablet) 500 mg PO BEDTIME [facility] Ondansetron HCl (Ondansetron Hcl 4 Mg/2 Ml Vial) 4 mg IVPUSH Q8H PRN PRN Reason: Nausea and Vomiting Oxycodone HCl (Oxycodone Hcl Immed Release 5 Mg Tablet) 5 mg PO Q4H PRN PRN Reason: Pain, Mild (Pain Scale 1-3) Oxycodone HCl (Oxycodone Hcl Immed Release 5 Mg Tablet) 10 mg PO Q4H PRN PRN Reason: Pain, Moderate(Pain Scale 4-6) Last Admin: 08/14/24 15:17 Dose: 10 mg Oxycodone HCl (Oxycodone Hcl Er 10 Mg Tab.Er.12h) 10 mg PO BID [facility] Sodium Chloride (0.9 % Sodium Chloride Flush 3 Ml Syringe) 3 ml IVFLUSH QSHIFT [facility] Last Admin: 08/14/24 15:23 Dose: Not Given Home Medications ?Medication ?Instructions ?Recorded ?Confirmed ?Last Taken ?Type hydrochlorothiazide 25 mg tablet 25 mg PO DAILY 06/13/20 08/14/24 08/13/24 History Physical Exam Vital Signs and Narrative: Vital Signs: Last Vital Signs Temp 97.0 F 08/14/24 13:09 Pulse 82 08/14/24 15:32 Resp 20 08/14/24 15:32 BP 148/74 H 08/14/24 15:32 Pulse Ox 96 08/14/24 15:32 O2 Del Method Room Air 08/14/24 15:32 O2 Flow Rate 6 08/14/24 10:35 BMI result Body Mass Index 34.5 General: AOx3, no acute distress Resp: CTA bilaterally CVS: S1, S2, RRR GI: +BS, NT, no distention Skin: Warm, dry Neuro: Cranial nerves II-XII grossly intact bilaterally. Motor grossly intact bilaterally Extremities: No edema. Left knee appropriately tender. Clean dressing in place. Pneumatic in place. Psych: Appropriate affect Assessment and Plan (1) Status post total left knee replacement: Status: Acute Plan Pt is a 74-year-old male with a PMH significant for HTN, HLD, and prediabetes who was admitted to the hospital under orthopedic services for left TKA. POD0. Hospitalist consult for medical management. Left TKA Pt reports pain well-controlled at this time Has already been seen by PT and out of bed Plan as per Orthopedics Impaired glucose tolerance Pt prediabetic for the past year Last A1c WNL at 5.8 Not on any home meds, diet-controlled Latest random glucose WNL No need for treatment, insulin coverage, or additional workup at this time HTN Continue amlodipine, hydrochlorothiazide HLD Continue statin, fenofibrate Pt appears clinically stable without any acute medical complaints. Will sign off for now. Thank you for allowing us to participate in the care of this pt. Please re-consult if any acute issue or need arises.
[2024-08-14] MEDS: vancomycin HCL 1,000 MG in 0.9 % Sodium Chloride 250 ML 270 MG IV (18:10)
[2024-08-14] MEDS: Amitriptyline HCl 10 MG TABLET PO (21:33)
[2024-08-14] MEDS: Docusate Sodium 100 MG CAPSULE PO (21:33)
[2024-08-14] MEDS: methocarbamoL 500 MG TABLET PO (21:34)
[2024-08-14] MEDS: Celecoxib 200 MG CAPSULE PO (21:35)
[2024-08-14] MEDS: Aspirin 325 MG TABLET PO (21:36)
[2024-08-14] MEDS: oxyCODONE HCl ER 10 MG TAB.ER.12H PO (21:36)
[2024-08-14] MEDS: 0.9 % Sodium Chloride Flush 3 ML SYRINGE IVFLUSH (23:46)
[2024-08-14] MEDS: HYDROmorphone HCl 0.5 MG/0.5 ML SYRINGE 0.25 MG IVPUSH (23:46)
[2024-08-15 03:41] VITALS: BP 142/67; PULSE 81; RESP 16; TEMP 37.1; O2SAT 94
[2024-08-15 06:57] LABS: Basophils Percent Auto 0.1 % (0-2); Eosinophils Percent Auto 0.1 % (0-4); Hematocrit 30.4 % (42.0-52.0); Hemoglobin 10.3 g/dl (14.0-18.0); Imm Gran Abs Auto 0.09 X10*3/uL (0.00-0.03); Imm Gran Pct Auto 0.7 % (0.0-0.4); Lymphocytes Absolute Auto 2.1 X10*3/uL (1.2-4.9); Lymphocytes Percent Auto 15.4 % (20-40); MANUAL DIFF FLAG SCAN; Mean Corpuscular HGB Conc 33.9 g/dl (31.0-36.0); Mean Corpuscular Hemoglobin 29.5 pg (27.0-33.0); Mean Corpuscular Volume 87.1 fL (80.0-98.0); Mean Platelet Volume 11.6 fL (9.4-12.4); Monocytes Absolute Auto 1.8 X10*3/uL (0.1-1.2); Monocytes Percent Auto 13.4 % (2-11); Neutrophils Absolute Auto 9.5 x10*3/uL (2.0-8.3); Neutrophils Percent Auto 70.3 % (45-73); Platelet Count 195 X10*3/uL (160-400); Red Blood Count 3.49 X10*6/uL (4.60-5.80); Red Cell Distribution Width 13.1 % (11.0-16.0); SCAN SMEAR FLAG 1; White Blood Count 13.5 X10*3/uL (4.8-10.8)
[2024-08-15 07:02] LABS: Anion Gap 12 (12-20); Blood Urea Nitrogen 23 mg/dL (9-16); Calcium 8.4 mg/dL (8.4-10.2); Carbon Dioxide 23 mmol/L (22-29); Chloride 110 mmol/L (96-108); Creatinine Clr Calc Pharmacy 63.8; Estimated Glomerular Filt Rate > 60; Glucose Fasting 147 mg/dL (60-99); Potassium 3.7 mmol/L (3.3-5.1); Sodium 141 mmol/L (135-145)
[2024-08-15 07:38] LABS: SLIDE REVIEW VERIFIED
[2024-08-15 07:40] VITALS: BP 139/73; PULSE 82; RESP 18; TEMP 36.6; O2SAT 95
[2024-08-15] MEDS: amLODIPine Besylate 5 MG TABLET PO (08:14)
[2024-08-15] MEDS: ceFAZolin Sodium/Dextrose,Iso 2 GM/50 ML PIGGYBACK IV (08:14)
[2024-08-15] MEDS: hydroCHLOROthiazide 25 MG TABLET PO (08:15)
[2024-08-15] MEDS: Docusate Sodium 100 MG CAPSULE PO (08:15)
[2024-08-15] MEDS: Celecoxib 200 MG CAPSULE PO (08:15)
[2024-08-15] MEDS: Atorvastatin Calcium 20 MG TABLET PO (08:15)
[2024-08-15] MEDS: oxyCODONE HCl ER 10 MG TAB.ER.12H PO (08:15)
[2024-08-15] MEDS: Aspirin 325 MG TABLET PO (08:15)
[2024-08-15] MEDS: Fenofibrate 54 MG TABLET PO (08:20)
--- NOTE | 2024-08-15 09:34 | MHC.CM.PN ---
Addendum entered by Lora Warren 08/15/24 10:06: PT WILL DC HOME TODAY Original Note: PT REPORTS HE LIVES WITH HIS AND IS INDEPENDENT WITH CARE PT REPORTS HE ALREADY HAS A WALKER AT HOME HE SAYS HE HAS SIGNED A HCP TWICE AND PROVIDED IT TO [facility], CM WILL CONTACT PCP SATURDAY PCP: DERRICK GOMEZ DCP: HOME WITH [facility] WILL PROVIDE SOC ON SATURDAY, PT AWARE FAMILY TO TRANSPORT
--- NOTE | 2024-08-15 09:43 | PM.PNORT ---
Subjective Subjective Date of Service: 08/15/24 Interval history: 74-year-old male postop day 1 status post left TKA with Dr. Mccray Patient resting comfortably in bed this morning No acute events overnight Pain well managed No other acute complaints or concerns at this time. Physical Exam Vital Signs: Vital Signs: Last Vital Signs Temp 97.8 F 08/15/24 07:40 Pulse 82 08/15/24 07:40 Resp 18 08/15/24 07:40 BP 139/73 08/15/24 07:40 Pulse Ox 95 08/15/24 07:40 O2 Del Method Room Air 08/15/24 07:40 O2 Flow Rate 6 08/14/24 10:35 BMI result Body Mass Index 34.5 Extrem: Other: Dressing on left knee clean, dry, intact No evidence of surrounding erythema, ecchymosis No evidence of infection Patient is able to flex and extend the digits of the left foot without difficulty Compartments soft, nontender Distal sensation intact Capillary refill brisk Procedures Date of Service Date of Service: 08/15/24 Progress Note: A&P Assessment and plan (1) Status post total left knee replacement: Status: Acute Plan 1. Status post left TKA DOS 08/14/2024 Patient appears to be recovering well postoperatively Continue pain management Continue aspirin 325 b.i.d. for DVT prophylaxis Continue PT Dispo planning-PT recommends home with services, [facility] has accepted, discharge today Time Spent With Patient Time: Total time managing care of this patient today ____ minutes. Quality Stroke Does the patient have a stroke diagnosis?: No VTE Prior VTE?: No VTE Risk Level:: Surgical - high VTE Device Contraindication: N/A - Device Ordered VTE Drug Contraindication: N/A - Med Ordered
--- NOTE | 2024-08-15 09:54 | P.DS_ITS ---
DS: Providers Provider Date of Service: 08/15/24 Date of discharge: 08/15/24 Primary care physician: Sherly Hsieh MD Consults: 08/14/24 13:18 Consult to Hospitalist Routine Comment: Consulting Provider: [facility] Reason For Exam: DM DS: Diagnosis Discharge Diagnosis (1) Status post total left knee replacement: Status: Acute DS: Summary Hospital Course Hospital Course: The patient underwent a successful total knee arthroplasty on 08/14/2024, was transferred to PACU and then to the floor to recover. During their stay, their vitals were stable, afebrile at 97.8. Labs were unremarkable, H/H 10.3/30.4. POD 1 he was started on aspirin 325 mg for DVT ppx, they also received Physical Therapy services twice a day. Physical therapy should include gait training, ROM to tolerance and quad strength. He is WBAT. Prior to discharge, his dressing was changed, incision clean dry and intact, new Aquacel dressing applied. The Aquacel dressing should remain intact and dry at all times. Any concerns with the dressing, please contact orthopedic office. No showering. The plan is to be discharged Status at Discharge Cognitive/behavioral status at discharge: Stable for discharge Time Attestation Discharge Coordination Time (in mins): Thirty Quality: Safe Use of Opioids Does Pt have an Active Cancer Diagnosis on the Problem List?: No Quality: Stroke Does the patient have a stroke diagnosis?: No Physical Exam Vital Signs: Vital Signs: Last Vital Signs Temp 97.8 F 08/15/24 07:40 Pulse 82 08/15/24 07:40 Resp 18 08/15/24 07:40 BP 139/73 08/15/24 07:40 Pulse Ox 95 08/15/24 07:40 O2 Del Method Room Air 08/15/24 07:40 O2 Flow Rate 6 08/14/24 10:35 BMI result Body Mass Index 34.5 DS: Data Data Completed and Pending Completed studies during hospitalization [Text1]: Procedures Introduction of Anesthetic Agent into Peripheral Nerves and Plexi, Percutaneous Approach (07/29/23) Replacement of Right Knee Joint with Synthetic Substitute, Cemented, Open Approach (07/29/23) Pending studies at discharge: Pending at discharge 08/14/24 09:26 Surgical [PTH] Routine Labs on day of discharge: Laboratory Results - last 24 hr 08/15/24 06:04 WBC 13.5 H RBC 3.49 L Hgb 10.3 L Hct 30.4 L MCV 87.1 MCH 29.5 MCHC 33.9 RDW 13.1 Plt Count 195 MPV 11.6 Immature Gran % (Auto) 0.7 H Neut % (Auto) 70.3 Lymph % (Auto) 15.4 L Cook % (Auto) 13.4 H Eos % (Auto) 0.1 Baso % (Auto) 0.1 Lymph # (Auto) 2.1 Cook # (Auto) 1.8 H Eos # (Auto) 0.0 Baso # (Auto) 0.0 Abs Immat Gran (auto) 0.09 H Absolute Neuts (auto) 9.5 H Absolute Nucleated RBC 0.000 Nucleated RBC % (auto) 0.0 Smear Tech's Comments VERIFIED Sodium 141 Potassium 3.7 Chloride 110 H Carbon Dioxide 23 Anion Gap 12 BUN 23 H Creatinine 1.09 Estim Creat Clear Calc 63.8 Estimated GFR > 60 Fasting Glucose 147 H Calcium 8.4 Discharge Plan Discharge Patient Disposition: Home Health Service Referrals: Alaina López PA-C [Physician Vending Mechanic] - 2 Weeks (08/27/24 12:45 [facility] Alaina López PA-C) Po,Sherly Mcpherson MD [Primary Care Provider] - 1 Week Discharge Medications: New celecoxib 200 mg Capsule 200 mg PO BID 30 Days Qty: 60 0RF methocarbamol 500 mg Tablet 500 mg PO BEDTIME 30 Days Qty: 30 0RF acetaminophen 325 mg Tablet 650 mg PO Q6H PRN (Reason: Pain, Mild 1-3,Fever,Headache) 30 Days Qty: 240 0RF aspirin 325 mg Tablet 325 mg PO BID 42 Days Qty: 84 0RF docusate sodium 100 mg Capsule 100 mg PO BID 30 Days Qty: 60 0RF gabapentin 100 mg Capsule 100 mg PO BEDTIME 30 Days Qty: 30 0RF oxycodone 5 mg Tablet 10 mg PO Q4H PRN (Reason: Pain, Moderate(Pain Scale 4-6)) 7 Days Qty: 42 0RF Rx Instructions: Partial Fill upon patient request. Continued amlodipine 5 mg tablet 5 mg PO DAILY 90 Days Qty: 90 3RF fenofibrate 54 mg tablet 54 mg PO DAILY Qty: 90 3RF cholecalciferol (vitamin D3) 50 mcg (2,000 unit) capsule 50 mcg PO DAILY Qty: 90 3RF atorvastatin 20 mg tablet 20 mg PO DAILY Qty: 90 3RF (RUSTY) taya [facility] See Rx Instructions .ROUTE .MEDSUPPLY Qty: 1 0RF Rx Instructions: Folding front wheeled walker hydrochlorothiazide 25 mg tablet 25 mg PO DAILY amitriptyline 10 mg tablet 10 mg PO BEDTIME Qty: 90 2RF cyanocobalamin (vitamin B-12) 1,000 mcg capsule 1,000 mcg PO DAILY Qty: 90 3RF fluticasone propionate 50 mcg/actuation spray,suspension 2 spray intranasal DAILY PRN (Reason: Allergy Symptoms) Qty: 16 4RF Rx Instructions: administer into each nostril testosterone [AndroGel] 20.25 mg/1.25 gram (1.62 %) gel in metered-dose pump 4 pump topical DAILY 30 Days Qty: 150 5RF Rx Instructions: apply 2 pump amount over max area of EACH upper arm and shoulder - 4 total per day Discharge Orders: Discharge Order (Routine); Ordered 08/15/24 Ordered By: Cole Huggins Diet: Advance to usual diet Activity on Discharge: Use cane or walker Activity Restrictions/Additional Instructions: Physical Therapy for Total knee arthroplasty: WBAT, gait training, ROM 0-12, quad strength ? Limit stair climbing ? No showering, no tub bath-keep dressing clean, dry and intact ? No driving x6 weeks ? Continue Aspirin twice a day x 6 weeks ? Follow up with [facility] in 2 weeks: Print Language: Frisian
--- NOTE | 2024-08-15 09:58 | P.F2F_ITS ---
Service Date Service Date: 08/15/24 Encounter Date of encounter: 08/15/24 Reasons for Services Signs and symptoms assessed: Status post left total knee arthroplasty Reason for physical therapy: home safety and mobility, therapeutic exercises, restore joint function and gait/transfer training Homebound: Leaving the home is medically contraindicated at this time without the asist of a device and/or another person due th the listed conditions above and below. Reason homebound: unsteady gait / fall risk and unable to drive Certification: Based on the above findings, I certify that this patient is confined to the home and needs intermittent retirement care, physical therapy and/or speech therapy, or continues to need occupational therapy. The patient is under my care, and I have initiated the establishment of the plan of care. The patient will be followed by a physician who will periodically review the plan of care. Time Spent With Patient Time: Total time managing care of this patient today ____ minutes.
[2024-08-15 12:18] VITALS: BP 163/83; PULSE 82; RESP 18; TEMP 36.4; O2SAT 94
--- NOTE | 2024-08-15 18:57 | HO.POSTANES ---
Post Anesthesia Evaluation Post Anesthesia Evaluation Date of Service: 08/15/24 Vital Signs: Vital Signs Temp Pulse Resp BP Pulse Ox O2 Del Method 08/15/24 12:18 97.6 F 82 18 163/83 H 94 Room Air 08/15/24 07:40 97.8 F 82 18 139/73 95 Room Air Anesthesia: Spinal Mental Status: Awake Pain Control: Satisfactory Nausea/Vomiting: None Hydration: Adequate Anesthesia-Related Issues: No Anes. Related Issues
== END 2024-08-15 12:28 | disposition home health service (06) ==
LOC: HO.SSS 05:53 → HO.S3 11:13
PROVIDERS: Physician Assistant; PCP Internal Medicine; Visit Provider Orthopaedic Surgery
PROC: (CPT 27447; principal; 2024-08-14 07:30)
DX: M17.12 Unilateral primary osteoarthritis, left knee (principal); R26.2 Difficulty in walking, not elsewhere classified; R20.0 Anesthesia of skin; I10 Essential (primary) hypertension; D64.9 Anemia, unspecified; E78.5 Hyperlipidemia, unspecified; R73.03 Prediabetes; R73.02 Impaired glucose tolerance (oral); E55.9 Vitamin D deficiency, unspecified; Z79.899 Other long term (current) drug therapy; Z88.8 Allergy status to other drugs, medicaments and biological substances; Z96.651 Presence of right artificial knee joint; Z89.029 Acquired absence of unspecified finger(s); Z98.890 Other specified postprocedural states; Z87.891 Personal history of nicotine dependence
CPT/HCPCS: 27447; 36415; 80048; 83036; 85025; 86850; 86900; 86901; 87640; 87641; 88305; 88311; 93005; 97116; 97162; 97530; C1776; J0131; J0665; J0690; J1100; J1171; J2003; J2250; J2704; J3370; J3371; J7120

== ENCOUNTER → 2024-08-14 05:53 | Outpatient (BNV) | payer MEDICARE, OTHER, SELFPAY | PROVIDERS: PCP Internal Medicine; Visit Provider Student in an Organized Health Care Education/Training Program | DX: Z96.652 Presence of left artificial knee joint (principal) | CPT/HCPCS: 99222 ==

== ENCOUNTER → 2024-08-14 05:53 | Outpatient (BNV) | payer MEDICARE, OTHER, SELFPAY | PROVIDERS: PCP Internal Medicine; Visit Provider Orthopaedic Surgery | DX: Z47.1 Aftercare following joint replacement surgery (principal); Z96.652 Presence of left artificial knee joint | CPT/HCPCS: 27447; 99024; G0180 ==

== ENCOUNTER 2024-08-27 10:11 | Outpatient (REF) | payer MEDICARE, OTHER, SELFPAY ==
--- NOTE | ~2024-08-27 | XR_ITS ---
EXAMINATION: XR KNEE 3 VIEWS LEFT HISTORY: M25.569 - Pain in unspecified knee COMPARISON: Comparison is made with the prior examination dated 01/30/2024. FINDINGS: Standing AP views of the bilateral knees, and additional lateral and sunrise patellar views of the left knee are submitted. The patient is status post total knee arthroplasty. The orthopedic elements are in anatomic alignment. There is no fracture or dislocation. The soft tissues are unremarkable. XR/XR knee LT 3V IMPRESSION: Status post left total knee arthroplasty. Electronically signed by: Fantasma Jacobo MD 08/27/2024 01:04 PM NOEMÍ
== END 2024-08-27 10:12 | disposition home or self-care (01) ==
LOC: HO.HOSX 10:11
PROVIDERS: Visit Provider Physician Assistant
DX: M25.552 Pain in left hip (principal); Z96.652 Presence of left artificial knee joint
CPT/HCPCS: 73562; 99212

== ENCOUNTER → 2024-08-27 12:26 | Outpatient (BNV) | payer MEDICARE, OTHER, SELFPAY | PROVIDERS: Visit Provider Radiology Diagnostic Radiology | DX: M25.562 Pain in left knee (principal) | CPT/HCPCS: 73562 ==

== ENCOUNTER 2024-09-11 10:50 | Outpatient (REF) | payer MEDICARE, OTHER, SELFPAY ==
[2024-09-11 11:06] LABS: MANUAL DIFF FLAG NO
[2024-09-11 11:36] LABS: Basophils Percent Auto 0.3 % (0-2); Eosinophils Absolute Auto 0.1 X10*3/uL (0.0-0.4); Eosinophils Percent Auto 1.5 % (0-4); Hematocrit 34.6 % (42.0-52.0); Imm Gran Abs Auto 0.02 X10*3/uL (0.00-0.03); Imm Gran Pct Auto 0.3 % (0.0-0.4); Lymphocytes Absolute Auto 2.6 X10*3/uL (1.2-4.9); Lymphocytes Percent Auto 39.7 % (20-40); Mean Corpuscular HGB Conc 31.8 g/dl (31.0-36.0); Mean Corpuscular Hemoglobin 28.6 pg (27.0-33.0); Mean Corpuscular Volume 89.9 fL (80.0-98.0); Mean Platelet Volume 11.4 fL (9.4-12.4); Monocytes Absolute Auto 0.6 X10*3/uL (0.1-1.2); Monocytes Percent Auto 9.4 % (2-11); Neutrophils Absolute Auto 3.2 x10*3/uL (2.0-8.3); Neutrophils Percent Auto 48.8 % (45-73); Platelet Count 280 X10*3/uL (160-400); Red Blood Count 3.85 X10*6/uL (4.60-5.80); Red Cell Distribution Width 13.5 % (11.0-16.0); White Blood Count 6.5 X10*3/uL (4.8-10.8)
[2024-09-11 12:10] LABS: Alanine Aminotransferase 14 U/L (0-40); Alkaline Phosphatase 74 U/L (39-117); Anion Gap 10 (12-20); Aspartate Amino Transferase 18 U/L (5-37); Bilirubin Total 0.4 mg/dL (0.0-1.0); Blood Urea Nitrogen 19 mg/dL (9-16); Calcium 9.1 mg/dL (8.4-10.2); Carbon Dioxide 25 mmol/L (22-29); Chloride 111 mmol/L (96-108); Estimated Glomerular Filt Rate > 60; Glucose Random 104 mg/dL (60-115); Potassium 3.9 mmol/L (3.3-5.1); Sodium 142 mmol/L (135-145); Total Protein 7.2 g/dL (6.5-8.0)
[2024-09-11 12:35] LABS: Prostate Specific Antigen 0.33 ng/mL (<0.05-4.0)
[2024-09-17 12:58] LABS: Testosterone, Total 450 ng/dL (250-1100)
== END 2024-09-11 10:51 | disposition home or self-care (01) ==
LOC: HO.LAB 10:50
PROVIDERS: PCP Internal Medicine; Visit Provider Urology
DX: Z01.818 Encounter for other preprocedural examination (principal); E29.1 Testicular hypofunction; Z12.5 Encounter for screening for malignant neoplasm of prostate
CPT/HCPCS: 36415; 80053; 84153; 84403; 85025

== ENCOUNTER 2024-09-17 12:19 | Outpatient (AMB) | payer MEDICARE, OTHER, SELFPAY ==
--- NOTE | 2024-09-17 12:31 | A.OFFVIS_ITS ---
Vital Signs 09/17/24 12:32 Height 5 ft 6 in Weight 214 lb BMI 34.5 Intake Visit Reasons: 6 WK PO: L TKA w/ 08/14/24 Intake Note: Ck is a 74 year old male who presents with complaints of mild to moderate discomfort in his left knee after undergoing left total knee replacement surgery on 08/14/2024. He continues with his formal physical therapy exercises. He denies any fevers or chills. Allergies lisinopril Allergy (Intermediate, Verified 09/17/24 12:32) cough Medication List - Last Reconciled 09/17/24 by Ron Mccray MD acetaminophen 650 mg (2 x 325 mg) PO Q6H PRN 30 days amitriptyline 10 mg PO BEDTIME amlodipine 5 mg PO DAILY 90 days amoxicillin 2,000 mg (4 x 500 mg) PO ONCE 1 day aspirin 325 mg PO BID 42 days atorvastatin 20 mg PO DAILY celecoxib 200 mg PO BID 30 days cholecalciferol (vitamin D3) 50 mcg PO DAILY cyanocobalamin (vitamin B-12) 1,000 mcg PO DAILY docusate sodium 100 mg PO BID 30 days fenofibrate 54 mg PO DAILY fluticasone propionate 50 mcg/actuation 2 sprays intranasal DAILY PRN gabapentin 100 mg PO BEDTIME 30 days hydrochlorothiazide 25 mg PO DAILY methocarbamol 500 mg PO BEDTIME 30 days oxycodone 5 mg PO Q4H PRN 7 days testosterone (AndroGel) 4 pumps topical DAILY 30 days walker Folding front wheeled walker [facility] Medical History Back pain History of headache Numbness Osteoarthritis Pes anserine bursitis Annual physical exam Prediabetes Epigastric abdominal pain Abdominal pain RLQ abdominal pain Adult general medical exam Headache Hypercholesterolemia Vitamin D deficiency Allergic rhinitis Obesity (BMI 30-39.9) Hypogonadism Anemia Impaired glucose tolerance Hypertension Surgical History Hx of total knee replacement History of colonoscopy Finger amputation, traumatic History of ankle surgery Family History Father Lung cancer Mother Diabetes Hypertension CVD (cardiovascular disease) Brother No problems noted. Social History Household Members: Spouse Housing: House Are you a primary wild animal caretaker to a significant other at home: No Do you presently have visiting nurse or other home services: No Alcohol intake: current Alcohol intake frequency: a few times a week Alcohol type: beer Patient Tobacco Use Status: Former Tobacco user Tobacco use type: Cigarette Years Smoked: quit 1989 e-Cigarette/Vaping Use: Never Used Second Hand Smoke Exposure: No service: No Current occupational status: retired Cognitive needs: No Hearing needs: No Vision needs: Yes Physical Exam Vital Signs: BMI result Body Mass Index 34.5 Extrem Other: Left knee examination shows that the surgical incision is well healed, no erythema, range of motion from -3 degrees to 110 degrees, his patella tracks well Assessment & Plan Assessment & Plan (1) Left knee pain: Code(s): M25.562 - Pain in left knee Category: Medical Plan Mr. Capone continues to do very well after undergoing left total knee replacement surgery on 08/14/2024. He will continue with his physical therapy exercises. He does know to take antibiotics before any dental work. I did refill his prescription for oxycodone. He will contact me prior to his follow- up appointment in 2 months should any questions or concerns arise. Feel free to call me at any time should questions regarding his orthopedic management arise. Coding Level of Care Code Global (15615) Diagnoses Left knee pain M25.562
[2024-09-17 12:32] VITALS: BMI 34.5
== END 2024-09-17 12:56 | disposition home or self-care (01) ==
PROVIDERS: PCP Internal Medicine; Visit Provider Orthopaedic Surgery
DX: M25.562 Pain in left knee (principal)
CPT/HCPCS: 99024

== ENCOUNTER → 2024-09-17 12:19 | Outpatient (BNVA) | payer MEDICARE, OTHER, SELFPAY | PROVIDERS: PCP Internal Medicine; Visit Provider Orthopaedic Surgery | DX: Z47.1 Aftercare following joint replacement surgery (principal); Z96.652 Presence of left artificial knee joint; M25.562 Pain in left knee | CPT/HCPCS: 99212 ==

== ENCOUNTER 2024-09-22 09:19 | Outpatient (AMB) | payer MEDICARE, OTHER, SELFPAY ==
--- NOTE | 2024-09-22 09:21 | A.OFFVIS_ITS ---
Intake Visit Reasons: 6m/PSA/Testo(SET) Intake Note: Patient is Present for 6M Follow Up/PSA Urology Medication: Testosterone, VITAMIN b12 Antibiotic Allergies: None Blood Thinners: None Medical Record Assistant Required: No Allergies lisinopril Allergy (Intermediate, Verified 09/22/24 09:22) cough HPI Comments Details: Ck is a pleasant male. He is a patient of Dr. Hsieh. He is seen for the following urologic conditions - hypogonadism Six-month follow-up Continue to follow for hypogonadism Testosterone 450 which for him is higher than it has been on last 3 occasions Six-month follow-up Hypogonadism: He presents today for follow-up of hypogonadism Review with labs in 6m. Initial symptoms include erectile dysfunction No decreased libido Yes change in mood/depression No The onset of symptoms has been gradual. Associate conditions include obstructive sleep apnea No CAD No obesity No stress - financial, family, employment No heavy alcohol or illicit drug use No Laboratory results 02/05 , baseline, testosterone, low 136, , LH, low 1.3 04/08 , testosterone 179, , testosterone 198 10/07 T 220 04/09 T 300, PSA 0.4 12/08 T 300, PSA 0.36, Hct 38. 06/10 T 340 PSA 0.27 - 12/09 T 200, PSA 0.3, Hct 41%, 06/11 T 360 P 0.3 H39, 12/10 T 360 0.3 38, 06/12 T 300 F 60 H 40 P 0.28, 12/11 380 0.3, 07/13 300 0.4 42, 12/12 T 127, 09/15 450 Therapeutic plan Continue with medication PFSH Medical History Back pain History of headache Numbness Osteoarthritis Pes anserine bursitis Annual physical exam Prediabetes Epigastric abdominal pain Abdominal pain RLQ abdominal pain Adult general medical exam Headache Hypercholesterolemia Vitamin D deficiency Allergic rhinitis Obesity (BMI 30-39.9) Hypogonadism Anemia Impaired glucose tolerance Hypertension Surgical History Hx of total knee replacement History of colonoscopy Finger amputation, traumatic History of ankle surgery Family History Father Lung cancer Mother Diabetes Hypertension CVD (cardiovascular disease) Brother No problems noted. Social History Household Members: Spouse Housing: House Are you a primary intensive care ambulance paramedic to a significant other at home: No Do you presently have visiting nurse or other home services: No Alcohol intake: current Alcohol intake frequency: a few times a week Alcohol type: beer Patient Tobacco Use Status: Former Tobacco user Tobacco use type: Cigarette Years Smoked: quit 1989 e-Cigarette/Vaping Use: Never Used Second Hand Smoke Exposure: No service: No Current occupational status: retired Cognitive needs: No Hearing needs: No Vision needs: Yes Review of Systems Const Denies chills and Denies fever(s) Card Reports no additional complaints and Denies syncope Resp Denies cough GI Denies abdominal pain and Denies heartburn Reports as per HPI and Denies change in libido Neuro Denies syncope Psych Denies change in libido Endo Denies change in libido Physical Exam Const General: cooperative, healthy appearing, comfortable and no acute distress Orientation/consciousness: patient oriented x3 HEENT Face and sinus: Yes normal facial exam Mouth: moist mucous membranes Neck Neck: Yes normal visual inspection, Yes full ROM and Yes trachea midline Chest Chest palpation & inspection: normal inspection of the chest Resp Effort & Inspection: normal respiratory effort, able to speak in complete sentences and no respiratory distress GI Inspection: Yes normal to inspection Back/Spine/Pelvis Cervical Spine: normal cervical lordosis Thoracic/Lumbar Spine: thoracic and lumbar spine normal to inspection Skin General skin exam: no rashes or lesions noted Neuro General: patient oriented x3, gait normal, tone normal and moves all extremities Extrem General: Yes normal to inspection and Yes capillary refill normal Assessment & Plan Assessment & Plan (1) Hypogonadism in male: Code(s): E29.1 - Testicular hypofunction Category: Medical Plan Lab work six-month Refill medications Orders: Orders Prostate Specific Antigen 6 Months E29.1 - Testicular hypofunction Testosterone, Total 6 Months E29.1 - Testicular hypofunction Complete Blood Count no Diff 6 Months E29.1 - Testicular hypofunction Medications: Refilled testosterone (AndroGel) apply 2 pump amount over max area of EACH upper arm and shoulder - 4 total per day 4 pumps topical DAILY 30 days 150 grams 5RF E29.1 - Testicular hypofunction Patient Instructions: This note is constructed using voice recognition software. While every effort has been made to ensure accuracy holter technician errors may have been included. Imaging studies, laboratory and physical exam results were discussed and reviewed in detail. No major barriers to patient understanding were identified. An opportunity to ask questions regarding the treatment plan was provided. All questions were answered. The patient expressed understanding and agreement with the above treatment plan. The patient is aware they should contact our office by phone for worsening of their current condition or the appearance of new urologic symptoms. Compliance is encouraged with any medications and followup testing that is ordered. It is a privilege to participate in the urologic care of your patient. If you have any questions or concerns regarding treatment for the above conditions, or other urologic issues, please do not hesitate to contact me. The office telephone contact is [phone]. Sincerely, Dr Lior Gil MD, [facility] - Urology [facility]assionate Specialist Care for the Genitourinary System Coding Level of Care Code Est Pt Level 3 (54428) Complex EM visit Add On G2211 Diagnoses Hypogonadism in male E29.1
== END 2024-09-22 09:49 | disposition home or self-care (01) ==
PROVIDERS: PCP Internal Medicine; Visit Provider Urology
DX: E29.1 Testicular hypofunction (principal)
CPT/HCPCS: 99213; G2211

== ENCOUNTER → 2024-09-22 09:19 | Outpatient (BNVA) | payer MEDICARE, OTHER, SELFPAY | PROVIDERS: PCP Internal Medicine; Visit Provider Urology | DX: E29.1 Testicular hypofunction (principal) | CPT/HCPCS: 99212 ==

== ENCOUNTER 2024-10-28 10:21 | Outpatient (AMB) | payer MEDICARE, OTHER, SELFPAY ==
--- NOTE | 2024-10-28 10:24 | A.OFFPC_ITS ---
Vital Signs 10/28/24 10:25 Height 5 ft 6 in Weight 213 lb 2 oz BMI 34.4 BP 122/82 Blood Pressure Location Lt brachial Position Sitting Pulse 75 Pulse Source Pulse Oximeter Temp 97.1 F Temp Source Temporal Artery Scan Pulse Oximetry (%) 96 Oxygen Delivery Method Room Air Intake Visit Reasons: IGT, cholesterol Intake Note: Patient is here to follow up on IGT, Cholesterol. Human Resources Project Manager Required: No Manager Critical Care Unit: Not Required per policy Accompanied by: Self / Same As Patient Allergies lisinopril Allergy (Intermediate, Verified 10/28/24 10:25) cough Tobacco use date assessed: 10/28/24 Fall risk assessment: No Falls in past year Last assessed Fall Risk: 10/28/24 Dental Screening Dental Screen Date: 10/28/24 Did you have a dental visit in the last 12 months?: No Did you have a dental problem in the last 6 months where you did not have access to dental care?: No Was dental information given to patient?: No PFSH Medical History (Updated 10/28/24 @ 11:11 by Sherly Hsieh MD) Back pain History of headache Numbness Osteoarthritis Pes anserine bursitis Annual physical exam Prediabetes Epigastric abdominal pain Abdominal pain RLQ abdominal pain Adult general medical exam Headache Hypercholesterolemia Vitamin D deficiency Allergic rhinitis Obesity (BMI 30-39.9) Hypogonadism Anemia Impaired glucose tolerance Hypertension Surgical History (Updated 10/28/24 @ 11:06 by Sherly Hsieh MD) History of left knee replacement Hx of total knee replacement History of colonoscopy Finger amputation, traumatic History of ankle surgery Family History Father Lung cancer Mother Diabetes Hypertension CVD (cardiovascular disease) Brother No problems noted. Social History Household Members: Spouse Housing: House Are you a primary child care center assistant director to a significant other at home: No Do you presently have visiting nurse or other home services: No Alcohol intake: current Alcohol intake frequency: a few times a week Alcohol type: beer Patient Tobacco Use Status: Former Tobacco user Tobacco use type: Cigarette Years Smoked: quit 1989 e-Cigarette/Vaping Use: Never Used Second Hand Smoke Exposure: Yes service: No Current occupational status: retired Cognitive needs: No Hearing needs: No Vision needs: Yes (Glasses) Questionnaire PHQ-9 Over the last 2 weeks, how often have you been bothered by any of the following problems? 1. Little interest or pleasure in doing things: not at all 2. Feeling down, depressed, or hopeless: not at all 3. Trouble falling or staying asleep, or sleeping too much: not at all 4. Feeling tired or having little energy: not at all 5. Poor appetite or overeating: not at all 6. Feeling bad about yourself - or that you are a failure or have let yourself or your family down: not at all 7. Trouble concentrating on things, such as reading the newspaper or watching television: not at all 8. Moving or speaking so slowly that other people could have noticed. Or the opposite - being so fidgety or restless that you have been moving around a lot more than usual: not at all 9. Thoughts that you would be better off or of hurting yourself in some way: not at all Total score: 0 Depression Screening Interpretation: Negative Depression Screening Done: Yes Source: Developed by Drs. Fantasma Rios, Emmie Moya, Bean San and colleagues, with an educational yvonne from [employer]. Thrive Questionnaire Date Thrive assessed: 10/28/24 I am a: Patient What is your living situation today?: I choose not to answer this question Within the past 12 months, did the food you bought not last and you didn't have the money to get more?: Never true Within the past 12 months, did you worry whether your food would run out before you got money to buy more?: Never true Do you have trouble paying for medicines?: No Do you have trouble getting transportation to medical appointments?: No Do you have trouble paying your heating and electricity bill?: No Do you have trouble taking care of your child, family member or friend?: No Do you have trouble with day-to-day activities such as bathing, preparing meals, shopping, managing finances, etc.?: No Are you currently unemployed and looking for a job?: No Are you interested in more education?: No Please select the resources that you would like help with: None Currently or been in a relationship where the following occur: No concerns reported THRIVE Score: 0 AUDIT C Alcohol Use Questionnaire (AUDIT-C) 1. How often do you have a drink containing alcohol?: 2-4 times a month 2. How many drinks containing alcohol do you have on a typical day when you are drinking?: 1 or 2 Total Score: 2 FIDELIA-7 AMB Questionnaire FIDELIA-7 Date FIDELIA - 7 assessed: 10/28/24 Feeling nervous, anxious, or on edge: 0 = Not at all Not being able to stop or control worryin = Not at all Worrying too much about different things: 0 = Not at all Trouble relaxin = Not at all Being so restless that it is hard to sit still: 0 = Not at all Becoming easily annoyed or irritable: 0 = Not at all Feeling afraid as if something awful might happen: 0 = Not at all Total FIDELIA-7 score (0-4 normal; 5-9 mild; 10-14 moderate; 15-21 severe): 0 Source: Developed by Drs. Fantasma Rios, Emmie Moya, Bean San and colleagues, with an educational yvonne from [employer]. Physical exam (Primary Care) Vital Signs: Last Vital Signs Temp 97.1 F 10/28/24 10:25 Pulse 75 10/28/24 10:25 BP 122/82 10/28/24 10:25 Pulse Ox 96 10/28/24 10:25 Oxygen Delivery Method Room Air 10/28/24 10:25 BMI result Body Mass Index 34.4 Tobacco/Smoking Status: Tobacco use Status Tobacco use date assessed 10/28/24 10/28/24 10:40 Patient Tobacco Use Status Former Tobacco user 10/28/24 10:40 Tobacco use type Cigarette 10/28/24 10:40 e-Cigarette/Vaping Use Never Used 10/28/24 10:40 PHQ-9: PHQ-9 Score PHQ-9: Total score 0 10/28/24 11:09 Depression Screening Interpretation: Negative Thrive Assessment: Date of Thrive Assessment Date Thrive assessed 10/28/24 10/28/24 10:40 Currently or been in a relationship where the following occur: No concerns reported Const General: alert; No acute distress Eyes Conjunctivae: conjunctivae normal Resp Auscultation: clear to auscultation bilaterally Cardio Rate: regular rate Rhythm: regular rhythm GI Inspection: Yes normal to inspection Extrem General: Yes normal to inspection and No edema Coding Level of Care Code Est Pt Level 4 (83395) Complex EM visit Add On G2211 Diagnoses Status post total left knee replacement Z96.652 Obesity (BMI 30-39.9) E66.9 Essential hypertension I10 Hypertension type: essential hypertension Hypercholesterolemia E78.00 Impaired glucose tolerance R73.02 Hypogonadism in male E29.1 Colon cancer screening Z12.11 Assessment & Plan Assessment & Plan (1) Status post total left knee replacement: Comment: July 2024 Code(s): Z96.652 - Presence of left artificial knee joint Category: Surgical Plan: Patient continues to follow-up with ortho and continuing physical therapy (2) Obesity (BMI 30-39.9): Code(s): E66.9 - Obesity, unspecified Category: Medical Plan: Diet and exercise (3) Hypertension: Code(s): I10 - Essential (primary) hypertension Category: Medical Qualifiers: Hypertension type: essential hypertension Qualified Code(s): I10 - Essential (primary) hypertension Plan: Continue with blood pressure medication. Decrease salt intake and exercise on amlodipine 5 mg once a day hydrochlorothiazide 25 mg once a day (4) Hypercholesterolemia: Code(s): E78.00 - Pure hypercholesterolemia, unspecified Category: Medical Plan: Avoid fried foods, chicken skin, eggs, butter margarine, pastries and meat. Be it pork or beef they have a lot of cholesterol LDL goal of less than 130 and triglyceride of less than 150 patient on atorvastatin and fenofibrate last blood work April 2024 (5) Impaired glucose tolerance: Code(s): R73.02 - Impaired glucose tolerance (oral) Category: Medical Plan: Decrease the amount of carbohydrate intake, pasta, bread, rice and potatoes are all sugar and that is aside from all the sweet stuff, remember that fruits are good but they are Sweet also. (6) Hypogonadism in male: Code(s): E29.1 - Testicular hypofunction Category: Medical Plan: Continue to follow-up with urology (7) Colon cancer screening: Code(s): Z12.11 - Encounter for screening for malignant neoplasm of colon Category: Medical Plan History of Present Illness The patient is a 74-year-old male presenting for follow-up after left knee replacement surgery performed on August 14, 2024. He has a history of obesity, impaired glucose tolerance, hypercholesterolemia, hypertension, and hypogonadism. Chronic anemia was noted in the patient's recent blood work, with hemoglobin at 11 g/dL. His glucose levels and hemoglobin A1c remain within a stable range. The last cholesterol testing performed in April 2024 indicated an LDL of 78 mg/dL. The patient has not undergone a colonoscopy since September 2014 but plans to follow up on receiving a referral. He reports discontinuing pills for bowel movement difficulties. The patient engages in regular physical therapy post-surgery and occasionally uses narcotic pain medication. Health Maintenance - Surveillance of testosterone levels with recent levels found to be satisfactory. - Upcoming referral for colonoscopy as the last procedure was in September 2014. - Continued monitoring of cholesterol levels with LDL goals and recent testing in April 2024. - Regular encouragement of exercise and diet adherence. - Blood work scheduled for around April 2025. Social History - Engaging in physical therapy regularly. - Occasional use of narcotic pain medication post-knee surgery. Review of Systems - General: Reports well-being, denies other acute complaints. - Cardiovascular: Denies any new cardiovascular symptoms. - Gastrointestinal: Reports occasional bowel movement difficulties. - Musculoskeletal: Reports engaging in physical therapy, uses narcotic pain medication occasionally following knee replacement surgery. Physical Exam Results - Labs: Hemoglobin at 11 g/dL, blood sugar at 104 mg/dL, hemoglobin A1c at 5.8%, LDL at 78 mg/dL. Plan 1. Emphasis on adherence to diet, exercise, and regular checkups, including planned blood work, will support ongoing management.: Patient was informed and verbally consented to the use of an ambient scribe for clinic note documentation during this visit. Discussion Notes I discussed with the patient the importance of continuing physical therapy and adhering to his current medication regimen for glucose, cholesterol, and blood pressure management. We reviewed the results of the most recent blood work, ensuring the patient understands his condition. We discussed completing a colonoscopy since it has not been done since 2014, and I will make a referral. The patient's ongoing health maintenance, including regular monitoring and future testing, was emphasized. I advised the patient to contact me for any refills with other specialists or if any concerns arise before the next scheduled appointment. Patient Instructions - Continue attending physical therapy sessions. - Use narcotic pain medications as prescribed when needed. - Adhere to current prescribed medication regimen for glucose, cholesterol, and blood pressure. - Await referral and schedule a colonoscopy as discussed. - Stay active and follow recommended diet for overall health. - Perform scheduled blood work in April 2025. - Contact office if experiencing any new health issues or concerns. Orders: Orders Complete Blood Count Auto Diff 5 Months Z12.11 - Encounter for screening for malignant neoplasm of colon Comprehensive Met. Panel 5 Months Z12.11 - Encounter for screening for malignant neoplasm of colon IRON PROFILE 5 Months Z12.11 - Encounter for screening for malignant neoplasm of colon Vitamin B12 and Folate 5 Months Z12.11 - Encounter for screening for malignant neoplasm of colon Hemoglobin A1c 5 Months Z12.11 - Encounter for screening for malignant neoplasm of colon Thyroid Stimulating Hormone 5 Months Z12.11 - Encounter for screening for malignant neoplasm of colon Lipid Panel 5 Months E78.00 - Pure hypercholesterolemia, unspecified, Z12.11 - Encounter for screening for malignant neoplasm of colon Reticulocyte Count 5 Months Z12.11 - Encounter for screening for malignant neoplasm of colon Free T4 (Free Thyroxine) 5 Months Z12.11 - Encounter for screening for malignant neoplasm of colon Ferritin 5 Months Z12.11 - Encounter for screening for malignant neoplasm of colon Referrals Gastroenterology Referral Z12.11 - Encounter for screening for malignant neoplasm of colon
[2024-10-28 10:25] VITALS: BP 122/82; PULSE 75; TEMP 36.2; O2SAT 96; BMI 34.4
== END 2024-10-28 11:15 | disposition home or self-care (01) ==
LOC: HO.HMCH 10:22
PROVIDERS: PCP Internal Medicine; Visit Provider Internal Medicine
DX: E78.00 Pure hypercholesterolemia, unspecified (principal); E66.9 Obesity, unspecified; I10 Essential (primary) hypertension; Z68.34 Body mass index [BMI] 34.0-34.9, adult; R73.02 Impaired glucose tolerance (oral); Z96.652 Presence of left artificial knee joint; E29.1 Testicular hypofunction; Z12.11 Encounter for screening for malignant neoplasm of colon

== ENCOUNTER → 2024-10-28 10:21 | Outpatient (BNVA) | payer MEDICARE, OTHER, SELFPAY | PROVIDERS: PCP Internal Medicine; Visit Provider Internal Medicine | DX: E66.9 Obesity, unspecified (principal); I10 Essential (primary) hypertension; R73.02 Impaired glucose tolerance (oral); E29.1 Testicular hypofunction; Z96.652 Presence of left artificial knee joint; Z68.34 Body mass index [BMI] 34.0-34.9, adult | CPT/HCPCS: 99212 ==

== ENCOUNTER 2024-11-05 09:00 | Outpatient (RCR) | payer MEDICARE, OTHER, SELFPAY ==
--- NOTE | 2024-09-14 08:43 | MHC.PT.EP ---
[facility] [place] [facility] [place] [facility] [place] Office [address] Da Edwards [address] [phone] F: [phone] F: [phone] F: [phone] F: [phone] Physical Therapy Plan of Care Date of Evaluation: 09/14/24 Date of Surgery: Diagnosis: This 74 yo male presenting to skilled PT with a script for L TKR. Assessment: This 74 yo male presenting to skilled PT with a script for L TKR. Patient underwent L TKR with [facility] ortho on 08/14/24. Patient stayed overnight 1 night and went home with home PT until 09/11. Patient is doing his HEP 2x/day. He gets about 2/10 pain during the day but this increases to a 5/10 with stairs and sleeping. Pain is laterally and medially at the muscles vs the incision. Pain is described as dull and achy. He enjoys golfing and wants to return to this this Spring. At baseline he is I with ADLs and IADLs as well as driving and walking. Assessment reveals pain that ranges from up to a 5/10 at the worst. Patient demos decreased B LE's AROM, strength of B LE's, TTP at muscles in the quad, impaired posture with forward head and rounded shoulders, flexed knees and forward trunk as well as impaired balance and gait pattern. Based on functional limitations, impaired QOL and pain tolerance patient is a good candidate for skilled PT 2x/wk for 5 wks. Frequency and Duration: The patient will be seen 2x/wk for 5wks Short Term Goals: (in 2 weeks) Patient will improve knee AROM by at least 10 degs without assist Patient will demo good undestanding and performance of quad set in multiple different planes without cues from PT Patient will be I in HEP Senior Living Goals: (in 5 weeks) Patient will report 75% improvement in balance and strength of LLE as evidenced by reports no of falls or buckling in LE Patient will improve LEFs by 10 points Patient will demo WFL AROM of knee and ankle Patient will demo proper squat and lift techniques without increase in pain Treatment Plan: Modalities to reduce pain, spasms and effusion. Manual therapy to restore motion and function. Therapeutic exercise to improve strength and flexibility. Neuromuscular re-education for posture and balance. Therapeutic activities to return to functional activities of daily living. Electronically signed by: Tatyana Limon PT Please sign and return to therapist. Thank you for your referral.
--- NOTE | 2024-12-04 14:10 | MHC.PT.DC ---
[place] Office [place] Office [place] Office [address] [phone] F: [phone] F: [phone] F: [phone] F: [phone] Physical Therapy Discharge Report Diagnosis: This 74 yo male presenting to skilled PT with a script for L TKR. Date of Surgery: Date of Evaluation: 09/14/24 Date of Discharge: 12/04/24 Treatments to Date: 13 Cancellations to Date: 0 No Shows to Date: 0 Discharge Status: Achieved Goals Improved Function Independent with HEP Discharge Summary: 11/05: Patient has come to 13 visits of PT. He is I in his HEP and motivated to continue on his own. Demos +2 degs of extension still and 118 knee flexion however is functional and happy with progress and results. At this time no skilled PT is indicated at this time and he is appropriate for DC. DC to HEP. Electronically signed by: Tatyana Limon, PT Please sign and return to therapist. Thank you for your referral.
== END 2024-12-04 14:11 | disposition home or self-care (01) ==
LOC: HO.PTCHIC 09:00
PROVIDERS: PCP Internal Medicine; Visit Provider Physician Assistant
DX: Z47.1 Aftercare following joint replacement surgery (principal); Z96.652 Presence of left artificial knee joint
CPT/HCPCS: 97110; 97140; 97162

== ENCOUNTER 2024-12-09 09:12 | Outpatient (AMB) | payer MEDICARE, OTHER, SELFPAY ==
--- NOTE | 2024-12-09 09:16 | A.OFFVIS_ITS ---
Intake Visit Reasons: Bilateral knee discomfort Intake Note: Ck is a 74 year old male who presents with complaints of mild intermittent discomfort in both of his knees after undergoing right total knee replacement surgery on 07/29/2023 as well as left total knee replacement surgery on 08/14/2024. He continues to golf for exercise. He denies any fevers or chills. He does take meloxicam which gives him fairly good relief. Allergies lisinopril Allergy (Intermediate, Verified 12/09/24 09:18) cough Medication List - Last Reconciled 12/09/24 by Ron Mccray MD acetaminophen 650 mg (2 x 325 mg) PO Q6H PRN 30 days amitriptyline 10 mg PO BEDTIME amlodipine 5 mg PO DAILY 90 days amoxicillin 2,000 mg (4 x 500 mg) PO ONCE 1 day aspirin 325 mg PO BID 42 days atorvastatin 20 mg PO DAILY cholecalciferol (vitamin D3) 50 mcg PO DAILY cyanocobalamin (vitamin B-12) 1,000 mcg PO DAILY docusate sodium 100 mg PO BID 30 days fenofibrate 54 mg PO DAILY fluticasone propionate 50 mcg/actuation 2 sprays intranasal DAILY PRN gabapentin 100 mg PO BEDTIME 30 days hydrochlorothiazide 25 mg PO DAILY methocarbamol 500 mg PO BEDTIME 30 days oxycodone 5 mg PO Q6H PRN testosterone (AndroGel) 4 pumps topical DAILY 30 days walker Folding front wheeled walker [facility] Medical History (Updated 10/28/24 @ 11:11 by Sherly Hsieh MD) Back pain History of headache Numbness Osteoarthritis Pes anserine bursitis Annual physical exam Prediabetes Epigastric abdominal pain Abdominal pain RLQ abdominal pain Adult general medical exam Headache Hypercholesterolemia Vitamin D deficiency Allergic rhinitis Obesity (BMI 30-39.9) Hypogonadism Anemia Impaired glucose tolerance Hypertension Surgical History (Updated 12/09/24 @ 09:34 by Ron Mccray MD) History of left knee replacement Hx of total knee replacement History of colonoscopy Finger amputation, traumatic History of ankle surgery Family History Father Lung cancer Mother Diabetes Hypertension CVD (cardiovascular disease) Brother No problems noted. Social History Household Members: Spouse Housing: House Are you a primary care information associate to a significant other at home: No Do you presently have visiting nurse or other home services: No Alcohol intake: current Alcohol intake frequency: a few times a week Alcohol type: beer Patient Tobacco Use Status: Former Tobacco user Tobacco use type: Cigarette Years Smoked: quit 1989 e-Cigarette/Vaping Use: Never Used Second Hand Smoke Exposure: Yes service: No Current occupational status: retired Cognitive needs: No Hearing needs: No Vision needs: Yes (Glasses) Physical Exam Const Other: Well-nourished well-developed very friendly male awake alert and oriented x3 in no acute distress Extrem Other: Bilateral lower extremity examination shows good capillary refill, no skin lesions noted, normal sensation light touch Bilateral knee examination shows that the surgical incisions are well healed, no erythema, full active extension and flexion to 120 degrees, his patellae track well Assessment & Plan Assessment & Plan (1) History of total left knee replacement: Code(s): Z96.652 - Presence of left artificial knee joint Category: Medical (2) History of total right knee replacement: Code(s): Z96.651 - Presence of right artificial knee joint Category: Medical Plan Mr. Capone continues to do very well after undergoing bilateral total knee replacement surgeries. He will continue with his home exercise program. He does know to take antibiotics before any dental work. He will contact me prior to his annual follow-up appointment should any questions or concerns arise. Feel free to call me at any time should questions regarding his orthopedic management arise. I spent 20 minutes in reviewing the patient's records and imaging studies, seeing the patient and documenting in the medical record. Medications: New meloxicam 15 mg PO DAILY PRN 30 tabs 3RF pain Coding Level of Care Code Est Pt Level 3 (19956) Complex EM visit Add On G2211 Diagnoses History of total left knee replacement Z96.652 History of total right knee replacement Z96.651
== END 2024-12-09 09:31 | disposition home or self-care (01) ==
LOC: HO.HOS 09:12
PROVIDERS: PCP Internal Medicine; Visit Provider Orthopaedic Surgery
DX: Z47.89 Encounter for other orthopedic aftercare (principal); Z96.653 Presence of artificial knee joint, bilateral
CPT/HCPCS: 99213; G2211

== ENCOUNTER → 2024-12-09 09:12 | Outpatient (BNVA) | payer MEDICARE, OTHER, SELFPAY | PROVIDERS: PCP Internal Medicine; Visit Provider Orthopaedic Surgery | DX: M25.562 Pain in left knee (principal); M25.561 Pain in right knee; Z96.653 Presence of artificial knee joint, bilateral | CPT/HCPCS: 99212 ==

== ENCOUNTER 2025-04-27 09:08 | Outpatient (REF) | payer MEDICARE, OTHER, SELFPAY ==
[2025-04-27 09:23] LABS: MANUAL DIFF FLAG NO
--- OUTSIDE RECORDS SUMMARY | 2025-04-27 10:06 | XMS_ITS | Patient Health Record ---
Author Organization [facility] Address [address] [place] [id number] Care Team Providers Care Interpreter Deaf Name Role Phone Sherly Hsieh MD Primary Care Provider Mehdi Mares Jr Reason For Referral No Information Medications Medication SIG (Take, Route, Frequency, Duration) Notes Start Date End Date Status hydroCHLOROthiazide 25 MG 1 tablet Orall y Once a day Active amLODIPine Besylate 5 MG 1 tablet Orally Once a day Active Mobic 15 MG 1 tablet Orally Once a day Active Fenofibrate 54 MG 1 tablet with a meal Orally Once a day Active Vitamin D 1000 UNIT 1 tablet Orally Once a day Active Flonase 50 MCG/ACT 1 spray in each nostril Nasally Once a day Active Colyte with Flavor Packs 240 GM As direc magali Orally Over the specified time. for 1 day(s) 09/15/2014 Active Encounters Encounter Location Date Provider Diagnosis [facility] [address] [place] [id number] 11/12/2024 Mehdi Escobar Jr Plan Of Treatment Future Test Test Name Order Date COLONOSCOPY 09/15/2014 Insurance Providers Payer Name Payer Address Payer Phone Subscriber Number Group Number Insured Name Patient Relationship to Insured Coverage Start Date Coverage End Date MEDICARE OF STEVEN JASON HENRY [address] [id number] KRISTIE GARCIA Self - patient is the insured [facility] [address] [place] [phone] [id number] KRISTIE GARCIA Self - patient is the insured Medical (General) History Medical History History ICD Code hypertension elevated cholesterol allergies Surgical History Surgery Date(Month/Year) ankle/foot surgery
[2025-04-27 10:37] LABS: Hematocrit 39.6 % (42.0-52.0); Hemoglobin 13.3 g/dl (14.0-18.0); Imm Gran Abs Auto 0.04 X10*3/uL (0.00-0.03); Imm Gran Pct Auto 0.5 % (0.0-0.4); Lymphocytes Absolute Auto 3.3 X10*3/uL (1.2-4.9); Mean Corpuscular HGB Conc 33.6 g/dl (31.0-36.0); Mean Corpuscular Hemoglobin 29.3 pg (27.0-33.0); Mean Corpuscular Volume 87.2 fL (80.0-98.0); NRBC Abs Auto 0.000 X10*3/uL (0.0-0.012); NRBC Pct Auto 0.0 /100WBC (0.0-0.2); Platelet Count 239 X10*3/uL (160-400); Red Blood Count 4.54 X10*6/uL (4.60-5.80); White Blood Count 8.5 X10*3/uL (4.8-10.8)
[2025-04-27 10:38] LABS: Reticulocytes Absolute 0.064 X10*6/uL (0.026-0.095)
[2025-04-27 11:27] LABS: Alanine Aminotransferase 21 U/L (0-40); Albumin Level 4.5 g/dL (3.5-5.0); Alkaline Phosphatase 68 U/L (39-117); Anion Gap 11 (12-20); Aspartate Amino Transferase 25 U/L (5-37); Blood Urea Nitrogen 19 mg/dL (9-16); Calcium 8.6 mg/dL (8.4-10.2); Carbon Dioxide 26 mmol/L (22-29); Chloride 109 mmol/L (96-108); Cholesterol 176 mg/dL (<200); Estimated Glomerular Filt Rate > 60; HDL Cholesterol 43 mg/dL (>40); Iron 77 mcg/dL (45-160); Percent Iron Saturation 24 % (15-50); Potassium 3.9 mmol/L (3.3-5.1); Sodium 142 mmol/L (135-145); Total Iron Binding Capacity 317 mcg/dL (228-428); Total Protein 7.3 g/dL (6.5-8.0); Triglycerides 131 mg/dL (<150); Unsaturated Iron Binding 240 ug/dL
[2025-04-27 11:33] LABS: Prostate Specific Antigen 0.32 ng/mL (<0.05-4.0)
[2025-04-27 11:44] LABS: Ferritin 78 ng/mL (20-250); Free T4 (Free Thyroxine) 0.97 ng/dL (0.71-1.85); Thyroid Stimulating Hormone 0.83 uIU/mL (0.32-4.0)
[2025-04-27 11:48] LABS: Folate 13.0 ng/mL (> or = 4.0); Vitamin B12 551 pg/mL (200-900)
== END 2025-04-27 09:09 | disposition home or self-care (01) ==
LOC: HO.LAB 09:08
PROVIDERS: Absent Provider Urology; PCP Internal Medicine; Visit Provider Internal Medicine
DX: Z12.11 Encounter for screening for malignant neoplasm of colon (principal); E78.00 Pure hypercholesterolemia, unspecified; Z12.5 Encounter for screening for malignant neoplasm of prostate; Z13.1 Encounter for screening for diabetes mellitus; Z13.0 Encounter for screening for diseases of the blood and blood-forming organs and certain disorders involving the immune mechanism
CPT/HCPCS: 36415; 80053; 80061; 82607; 82728; 82746; 83036; 83540; 84153; 84403; 84439; 84443; 85025; 85045

== ENCOUNTER 2025-05-05 10:12 | Outpatient (AMB) | payer MEDICARE, OTHER, SELFPAY ==
[2025-05-05 10:16] VITALS: BP 128/72; PULSE 78; TEMP 36.2; O2SAT 97; BMI 35.4
--- NOTE | 2025-05-05 10:16 | MHC.PC.OV ---
Vital Signs 05/05/25 10:16 Height 5 ft 6 in Weight 219 lb 6 oz BMI 35.4 BP 128/72 Blood Pressure Location Lt brachial Position Sitting Pulse 78 Pulse Source Pulse Oximeter Temp 97.1 F Temp Source Temporal Artery Scan Pulse Oximetry (%) 97 Oxygen Delivery Method Room Air Intake Visit Reasons: Annual Exam Allergies lisinopril Allergy (Intermediate, Verified 05/05/25 10:16) cough Medication List - Last Reconciled 05/05/25 by Sherly Hsieh MD acetaminophen 650 mg (2 x 325 mg) PO Q6H PRN 30 days amitriptyline 10 mg PO BEDTIME 90 days amlodipine 5 mg PO DAILY 90 days amoxicillin 2,000 mg (4 x 500 mg) PO ONCE 1 day aspirin 325 mg PO BID 42 days atorvastatin 20 mg PO DAILY cholecalciferol (vitamin D3) 50 mcg PO DAILY cyanocobalamin (vitamin B-12) 1,000 mcg PO DAILY docusate sodium 100 mg PO BID 30 days fenofibrate 54 mg PO DAILY fluticasone propionate 50 mcg/actuation 2 sprays intranasal DAILY PRN folic acid 1 mg PO DAILY gabapentin 100 mg PO BEDTIME 30 days hydrochlorothiazide 25 mg PO DAILY meloxicam 15 mg PO DAILY PRN methocarbamol 500 mg PO BEDTIME 30 days testosterone (AndroGel) 4 pumps topical DAILY 30 days walker Folding front wheeled walker Tobacco use date assessed: 05/05/25 Fall risk assessment: No Falls in past year Last assessed Fall Risk: 05/05/25 Dental Screening Dental Screen Date: 10/28/24 Did you have a dental visit in the last 12 months?: Yes Did you have a dental problem in the last 6 months where you did not have access to dental care?: No Was dental information given to patient?: Patient has dentist [facility] Medical History Back pain History of headache Numbness Osteoarthritis Pes anserine bursitis Annual physical exam Prediabetes Epigastric abdominal pain Abdominal pain RLQ abdominal pain Adult general medical exam Headache Hypercholesterolemia Vitamin D deficiency Allergic rhinitis Obesity (BMI 30-39.9) Hypogonadism Anemia Impaired glucose tolerance Hypertension Surgical History History of left knee replacement Hx of total knee replacement History of colonoscopy Finger amputation, traumatic History of ankle surgery Family History Father Lung cancer Mother Diabetes Hypertension CVD (cardiovascular disease) Brother No problems noted. Social History (Updated 05/05/25 @ 10:44 by Sherly Hsieh MD) Household Members: Spouse Housing: House Are you a primary direct care worker to a significant other at home: No Do you presently have visiting nurse or other home services: No Alcohol intake: current Alcohol intake frequency: a few times a week Alcohol type: beer Comment: 2 x a week 2 beers Patient Tobacco Use Status: Former Tobacco user Tobacco use type: Cigarette Years Smoked: quit 1989 e-Cigarette/Vaping Use: Never Used Second Hand Smoke Exposure: Yes service: No Current occupational status: retired Cognitive needs: No Hearing needs: No Vision needs: Yes (Glasses) Questionnaire PHQ-9 Over the last 2 weeks, how often have you been bothered by any of the following problems? 1. Little interest or pleasure in doing things: not at all 2. Feeling down, depressed, or hopeless: not at all 3. Trouble falling or staying asleep, or sleeping too much: not at all 4. Feeling tired or having little energy: not at all 5. Poor appetite or overeating: not at all 6. Feeling bad about yourself - or that you are a failure or have let yourself or your family down: not at all 7. Trouble concentrating on things, such as reading the newspaper or watching television: not at all 8. Moving or speaking so slowly that other people could have noticed. Or the opposite - being so fidgety or restless that you have been moving around a lot more than usual: not at all 9. Thoughts that you would be better off or of hurting yourself in some way: not at all Total score: 0 Source: Developed by Drs. Fantasma Rios, Emmie Moya, Bean San and colleagues, with an educational yvonne from [employer]. Thrive Questionnaire Date Thrive assessed: 10/28/24 I am a: Patient What is your living situation today?: I have a steady place to live Within the past 12 months, did the food you bought not last and you didn't have the money to get more?: Never true Within the past 12 months, did you worry whether your food would run out before you got money to buy more?: Never true Do you have trouble paying for medicines?: No Do you have trouble getting transportation to medical appointments?: No Do you have trouble paying your heating and electricity bill?: No Do you have trouble taking care of your child, family member or friend?: No Do you have trouble with day-to-day activities such as bathing, preparing meals, shopping, managing finances, etc.?: No Are you currently unemployed and looking for a job?: No Are you interested in more education?: No Please select the resources that you would like help with: None Currently or been in a relationship where the following occur: I choose not to answer THRIVE Score: 0 AUDIT C Alcohol Use Questionnaire (AUDIT-C) 1. How often do you have a drink containing alcohol?: 2-4 times a month 2. How many drinks containing alcohol do you have on a typical day when you are drinking?: 1 or 2 3. How often do you have six or more drinks on one occasion?: Never Total Score: 2 FIDELIA-7 AMB Questionnaire FIDELIA-7 Date FIDELIA - 7 assessed: 10/28/24 Feeling nervous, anxious, or on edge: 0 = Not at all Not being able to stop or control worryin = Not at all Worrying too much about different things: 0 = Not at all Trouble relaxin = Not at all Being so restless that it is hard to sit still: 0 = Not at all Becoming easily annoyed or irritable: 0 = Not at all Feeling afraid as if something awful might happen: 0 = Not at all Total FIDELIA-7 score (0-4 normal; 5-9 mild; 10-14 moderate; 15-21 severe): 0 Source: Developed by Drs. Fantasma Rios, Emmie Moya, Bean San and colleagues, with an educational yvonne from [employer]. Review of Systems Const Denies poor appetite and Denies weakness Eyes Denies no additional complaints ENT Reports Normal hearing present, Denies dizziness, Denies nasal congestion, Denies tinnitus and Denies sore throat Card Denies chest pain, Denies syncope, Denies rapid heart rate and Denies dyspnea Resp Denies cough and Denies dyspnea GI Denies change in stool character, Reports constipation, Denies diarrhea, Denies nausea and Denies vomiting Denies dysuria and Denies urinary frequency Neuro Reports Normal hearing present, Denies confusion, Denies dizziness, Denies syncope and Denies weakness Psych Denies confusion Physical exam (Primary Care) Vital Signs: Last Vital Signs Temp 97.1 F 05/05/25 10:16 Pulse 78 05/05/25 10:16 BP 128/72 05/05/25 10:16 Pulse Ox 97 05/05/25 10:16 Oxygen Delivery Method Room Air 05/05/25 10:16 Next steps: guaiac negative prostate N BMI result Body Mass Index 35.4 Tobacco/Smoking Status: Tobacco use Status Tobacco use date assessed 05/05/25 05/05/25 10:18 Patient Tobacco Use Status Former Tobacco user 05/05/25 10:44 Tobacco use type Cigarette 05/05/25 10:44 e-Cigarette/Vaping Use Never Used 05/05/25 10:44 PHQ-9: PHQ-9 Score PHQ-9: Total score 0 05/05/25 10:35 Thrive Assessment: Date of Thrive Assessment Date Thrive assessed 10/28/24 05/05/25 10:18 Currently or been in a relationship where the following occur: I choose not to answer Const General: No confusion Orientation/consciousness: No confusion HENSC Head: Yes normocephalic Ears: external ears normal and TM's normal bilaterally Face and sinus: Yes normal facial exam Mouth: moist mucous membranes Throat: Yes tonsils normal Eyes Conjunctivae: conjunctivae normal Pupils: Equal, round and reactive pupils present and Pupil accommodation reflex normal Direct Ophthalmoscopy: normal light reflex Neck Neck: No lymphadenopathy Thyroid: Thyroid normal Chest Chest palpation & inspection: normal inspection of the chest Resp Effort & Inspection: normal respiratory effort and no audible wheezes Auscultation: clear to auscultation bilaterally, no crackles, no wheezes and lung sounds not diminished Cardio Rate: regular rate Rhythm: regular rhythm Peripheral pulses: radial pulses present and dorsalis pedis present GI Palpation (GI): no masses Auscultation: normal bowel sounds and normoactive bowel sounds Male General Exam: Yes normal external exam Skin General skin exam: no rashes or lesions noted Rashes: no rashes Neuro General: No confusion Cranial nerves: Yes Equal, round and reactive pupils present and Yes Normal hearing present Cognition (Neuro): normal cognition Gait exam (Neuro): Normal gait present Motor exam (neuro): 5/5 motor strength present throughout Deep tendon reflexes (DTR's): Right brachioradialis reflex intensity grade: 2+, Left brachioradialis reflex intensity grade: 2+, Right patellar reflex intensity grade: 2+ and Left patellar reflex intensity grade: 2+ Extrem General: No edema Coding Level of Care Code Est Pt Prev Care >65y(00389) Diagnoses Annual physical exam Z00.00 Status post total left knee replacement Z96.652 Anemia, unspecified type D64.9 Anemia type: unspecified type Colon cancer screening Z12.11 Obesity (BMI 30-39.9) E66.9 Impaired glucose tolerance R73.02 Essential hypertension I10 Hypertension type: essential hypertension Hypercholesterolemia E78.00 Assessment & Plan Assessment & Plan (1) Annual physical exam: Code(s): Z00.00 - Encounter for general adult medical examination without abnormal findings Category: Medical Plan: Patient is advised to eat healthy, keep well hydrated, keep active and have adequate sleep. (2) Status post total left knee replacement: Comment: July 2024 Code(s): Z96.652 - Presence of left artificial knee joint Category: Surgical Plan: Continue with exercises, continue to follow-up with orthopedics (3) Anemia: Code(s): D64.9 - Anemia, unspecified Category: Medical Qualifiers: Anemia type: unspecified type Qualified Code(s): D64.9 - Anemia, unspecified Plan: Chronic and improving (4) Colon cancer screening: Code(s): Z12.11 - Encounter for screening for malignant neoplasm of colon Category: Medical Plan: Patient is reminded about colon cancer screening (5) Obesity (BMI 30-39.9): Code(s): E66.9 - Obesity, unspecified Category: Medical Plan: Diet and exercise (6) Impaired glucose tolerance: Code(s): R73.02 - Impaired glucose tolerance (oral) Category: Medical Plan: Decrease the amount of carbohydrate intake, pasta, bread, rice and potatoes are all sugar and that is aside from all the sweet stuff, remember that fruits are good but they are Sweet also. (7) Hypertension: Code(s): I10 - Essential (primary) hypertension Category: Medical Qualifiers: Hypertension type: essential hypertension Qualified Code(s): I10 - Essential (primary) hypertension Plan: Continue with blood pressure medication. Decrease salt intake and exercise on amlodipine 5 mg once a day hydrochlorothiazide 25 mg once a day (8) Hypercholesterolemia: Code(s): E78.00 - Pure hypercholesterolemia, unspecified Category: Medical Plan: Avoid fried foods, chicken skin, eggs, butter margarine, pastries and meat. Be it pork or beef they have a lot of cholesterol patient takes fenofibrate 54 mg once a day atorvastatin 20 mg once a day Plan History of Present Illness The patient is a 75-year-old male presenting for a physical examination and management of chronic conditions. The patient has a history of obesity and impaired glucose tolerance, with recent blood sugar levels slightly elevated at 118 mg/dL and a hemoglobin A1c of 5.8%. He has been advised to monitor carbohydrate intake and maintain a healthy diet. Hypertension is managed with amlodipine 5 mg and hydrochlorothiazide 25 mg daily, with blood pressure readings stable. Hypercholesterolemia is controlled with atorvastatin 20 mg and fenofibrate 54 mg daily, with LDL cholesterol at 107 mg/dL and triglycerides at 131 mg/dL. The patient has a history of hypogonadism, with testosterone levels currently within normal limits at 730 ng/dL. Osteoarthritis is present, with the patient having undergone bilateral knee replacements. He follows a home exercise program and reports improvement in knee pain. Anemia was noted in previous blood work but is improving, with current hemoglobin at 13.3 g/dL. Renal function shows slight elevation in creatinine at 4.12 mg/dL, but electrolytes remain stable. The patient reports prostate enlargement, confirmed on examination, and is reminded of the importance of regular screenings. Preventative care includes a reminder for colon cancer screening, which is overdue since the last colonoscopy in 2014. Health Maintenance - Colon cancer screening: Overdue, last performed in 2015 - Blood pressure management: Amlodipine 5 mg and hydrochlorothiazide 25 mg daily - Cholesterol management: Atorvastatin 20 mg and fenofibrate 54 mg daily - Diabetes management: Monitor carbohydrate intake, maintain healthy diet - Exercise: Home exercise program for knee pain management - Vaccinations: Flu shot and COVID-19 vaccine received - Prostate health: Regular screenings advised Social History - Exercise: Engages in a home exercise program and plays golf three times a week - Alcohol use: Consumes two beers a couple of times a week - Tobacco use: Denies current use - Recreational drug use: Denies use Review of Systems - General: Denies fever, chills, or weight loss - Cardiovascular: Denies chest pain, palpitations, or syncope - Respiratory: Denies dyspnea, cough, or wheezing - Gastrointestinal: Reports nocturia twice per night, denies abdominal pain or changes in bowel habits - Neurological: Reports intermittent numbness in the arm, denies headaches or dizziness Physical Exam General: Cooperative, healthy appearing, comfortable, no acute distress and well developed Orientation: Patient oriented x3 Limitations: No limitations Head: Normal to inspection Ears: Hearing grossly normal bilaterally, but earwax noted deep inside Nose: Normal external nose present Face and sinus: Normal facial exam Eyes: Appearance normal, both eyes and all related structures Neck: Normal visual inspection and Yes full ROM Respiratory: Normal respiratory effort and able to speak in complete sentences. Clear to auscultation bilaterally Cardiovascular: Regular rate and rhythm. Normal S1 and S2 GI: Normal to inspection. Soft to palpation and nontender Skin: No rashes or lesions noted Neuro: Patient oriented x3, reports numbness and pins and needles sensation in the arm and fingers, especially when arm is down Extremities: Normal to inspection, but patient reports numbness and pins and needles sensation in the arm and fingers, especially when arm is down Results - Labs: Hemoglobin 13.3 g/dL, creatinine 4.12 mg/dL, blood sugar 118 mg/dL, hemoglobin A1c 5.8%, LDL cholesterol 107 mg/dL, triglycerides 131 mg/dL, testosterone 730 ng/dL Plan Patient was informed and verbally consented to the use of an ambient scribe for clinic note documentation during this visit. 1. Obesity The patient is advised to continue monitoring his diet, focusing on reducing carbohydrate intake to manage weight and glucose levels. 2. Impaired Glucose Tolerance The patient is advised to maintain a healthy diet and monitor carbohydrate intake to manage blood sugar levels. 3. Hypertension The patient is currently on amlodipine 5 mg and hydrochlorothiazide 25 mg daily, with stable blood pressure readings. 4. Hypercholesterolemia The patient is taking atorvastatin 20 mg and fenofibrate 54 mg daily, with LDL cholesterol and triglycerides within target range. 5. Hypogonadism Testosterone levels are currently within normal limits, and no changes in management are indicated at this time. 6. Osteoarthritis The patient is advised to continue with his home exercise program and follow up with orthopedics as needed for knee pain management. 7. Anemia The patient's anemia is improving, with current hemoglobin levels at 13.3 g/dL, and no further intervention is required at this time. 8. Renal Insufficiency Renal function is monitored, with creatinine levels slightly elevated at 4.12 mg/dL, but stable electrolytes. 9. Prostate Enlargement The patient is reminded of the importance of regular prostate screenings, especially given the enlargement noted on examination. 10. Preventative Care: Colon Cancer Screening Overdue The patient is reminded to schedule a colonoscopy, as the last screening was performed in 2014. Discussion Notes During the visit, I discussed with the patient the importance of maintaining a healthy diet and regular exercise to manage his weight and glucose levels. We reviewed his current medication regimen for hypertension and hypercholesterolemia, which are well-controlled. I emphasized the need for regular prostate screenings and reminded him to schedule a colonoscopy, as his last screening was in 2014. We also discussed the management of his osteoarthritis and the benefits of continuing his home exercise program. Patient Instructions - Continue with current medications for hypertension and cholesterol. - Maintain a healthy diet and monitor carbohydrate intake. - Schedule a colonoscopy as soon as possible. - Follow up with orthopedics as needed for knee pain. - Ensure regular prostate screenings. Medications: Changed From gabapentin 100 mg PO BEDTIME 30 days 30 caps 0RF To gabapentin 300 mg PO BEDTIME 30 caps 0RF 30 days
--- OUTSIDE RECORDS SUMMARY | 2025-05-05 12:06 | XMS_ITS | Patient Health Record ---
Author Organization [facility] Address [address] [place] [id number] Care Team Providers Care Blender Helper Name Role Phone Sherly Hsieh MD Primary [...] As direc magali Orally Over the specified time.; Duration: 1 day(s) 09/15/2014 Active Encounters Encounter Location Date Provider Diagnosis [facility] [address] [place] [phone] 11/12/2024 Mehdi Escobar Jr Plan Of Treatment Future Test Test Name Order Date COLONOSCOPY 09/15/2014 Insurance Providers Payer Name Payer Address Payer Phone Subscriber Number Group Number Insured Name Patient Relationship to Insured Coverage Start Date Coverage End Date MEDICARE OF STEVEN HENRY [address] [id number] [phone] [id number] KRISTIE GARCIA Self - patient is the insured [facility] [address] [place] [phone] [id number] KRISTIE GARCIA Self - patient is the insured Medical (General) History Medical History History ICD Code hypertension elevated cholesterol allergies Surgical History Surgery Date(Month/Year) ankle/foot surgery
== END 2025-05-05 11:02 | disposition home or self-care (01) ==
LOC: HO.HMCH 10:13
PROVIDERS: PCP Internal Medicine; Visit Provider Internal Medicine
DX: Z00.00 Encounter for general adult medical examination without abnormal findings (principal); D64.9 Anemia, unspecified; E66.9 Obesity, unspecified; Z68.35 Body mass index [BMI] 35.0-35.9, adult; Z96.652 Presence of left artificial knee joint; Z12.11 Encounter for screening for malignant neoplasm of colon; R73.02 Impaired glucose tolerance (oral); I10 Essential (primary) hypertension; E78.00 Pure hypercholesterolemia, unspecified

== ENCOUNTER → 2025-05-05 10:12 | Outpatient (BNVA) | payer MEDICARE, OTHER, SELFPAY | PROVIDERS: PCP Internal Medicine; Visit Provider Internal Medicine | DX: Z00.00 Encounter for general adult medical examination without abnormal findings (principal); D64.9 Anemia, unspecified; E66.9 Obesity, unspecified; R73.02 Impaired glucose tolerance (oral); I10 Essential (primary) hypertension; E29.1 Testicular hypofunction; N40.0 Benign prostatic hyperplasia without lower urinary tract symptoms; Z96.653 Presence of artificial knee joint, bilateral | CPT/HCPCS: 96127; 99397 ==

== ENCOUNTER 2025-05-12 11:28 | Outpatient (AMB) | payer MEDICARE, OTHER, SELFPAY ==
--- NOTE | 2025-05-12 11:59 | MHC.OFFVIS ---
Intake Visit Reasons: 6M/labs Intake Note: Patient is Present for 6M/labs Urology Medication: Testosterone, VITAMIN b12, amitriptyline Blood Thinners: aspirin labs done 04/27/25: psa 0.32, TT 730 Fruit Thinner Required: No Accompanied by: Self / Same As Patient Allergies lisinopril Allergy (Intermediate, Verified 05/12/25 12:02) cough HPI Comments Details: Ck is a pleasant male. He is a patient of Dr. Hsieh. He is seen for the following urologic conditions - hypogonadism Six-month follow-up Continue to follow for hypogonadism Testosterone has slowly recovered up to 700 with use of gels Continue Encourage physical activity Hypogonadism: He presents today for follow-up of hypogonadism Review with labs in 6m. Initial symptoms include erectile dysfunction No decreased libido Yes change in mood/depression No The onset of symptoms has been gradual. Associate conditions include obstructive sleep apnea No CAD No obesity No stress - financial, family, employment No heavy alcohol or illicit drug use No Laboratory results 02/05 , baseline, testosterone, low 136, , LH, low 1.3 04/08 , testosterone 179, , testosterone 198 10/07 T 220 04/09 T 300, PSA 0.4 12/08 T 300, PSA 0.36, Hct 38. 06/10 T 340 PSA 0.27 - 12/09 T 200, PSA 0.3, Hct 41%, 06/11 T 360 P 0.3 H39, 12/10 T 360 0.3 38, 06/12 T 300 F 60 H 40 P 0.28, 12/11 380 0.3, 07/13 300 0.4 42, 12/12 T 127, 09/15 450, 05/15 700 0.3 39 Therapeutic plan Continue with [facility] Medical History Back pain History of headache Numbness Osteoarthritis Pes anserine bursitis Annual physical exam Prediabetes Epigastric abdominal pain Abdominal pain RLQ abdominal pain Adult general medical exam Headache Hypercholesterolemia Vitamin D deficiency Allergic rhinitis Obesity (BMI 30-39.9) Hypogonadism Anemia Impaired glucose tolerance Hypertension Surgical History History of left knee replacement Hx of total knee replacement History of colonoscopy Finger amputation, traumatic History of ankle surgery Family History Father Lung cancer Mother Diabetes Hypertension CVD (cardiovascular disease) Brother No problems noted. Social History (Updated 05/05/25 @ 10:44 by Sherly Hsieh MD) Household Members: Spouse Housing: House Are you a primary career resource technician to a significant other at home: No Do you presently have visiting nurse or other home services: No Alcohol intake: current Alcohol intake frequency: a few times a week Alcohol type: beer Comment: 2 x a week 2 beers Patient Tobacco Use Status: Former Tobacco user Tobacco use type: Cigarette Years Smoked: quit 1989 e-Cigarette/Vaping Use: Never Used Second Hand Smoke Exposure: Yes service: No Current occupational status: retired Cognitive needs: No Hearing needs: No Vision needs: Yes (Glasses) Review of Systems Const Denies chills and Denies fever(s) Card Reports no additional complaints and Denies syncope Resp Denies cough GI Denies abdominal pain and Denies heartburn Reports as per HPI and Denies change in libido Neuro Denies syncope Psych Denies change in libido Endo Denies change in libido Physical Exam Const General: cooperative, healthy appearing, comfortable and no acute distress Orientation/consciousness: patient oriented x3 HEENT Face and sinus: Yes normal facial exam Mouth: moist mucous membranes Neck Neck: Yes normal visual inspection, Yes full ROM and Yes trachea midline Chest Chest palpation & inspection: normal inspection of the chest Resp Effort & Inspection: normal respiratory effort, able to speak in complete sentences and no respiratory distress GI Inspection: Yes normal to inspection Back/Spine/Pelvis Cervical Spine: normal cervical lordosis Thoracic/Lumbar Spine: thoracic and lumbar spine normal to inspection Skin General skin exam: no rashes or lesions noted Neuro General: patient oriented x3, gait normal, tone normal and moves all extremities Extrem General: Yes normal to inspection and Yes capillary refill normal Assessment & Plan Assessment & Plan (1) Hypogonadism in male: Code(s): E29.1 - Testicular hypofunction Category: Medical Plan Six-month follow-up lab work office Orders: Orders Testosterone, Total 6 Months E29.1 - Testicular hypofunction Prostate Specific Antigen 6 Months E29.1 - Testicular hypofunction Complete Blood Count no Diff 6 Months E29.1 - Testicular hypofunction Medications: Refilled testosterone (AndroGel) apply 2 pump amount over max area of EACH upper arm and shoulder - 4 total per day 4 pumps topical DAILY 150 grams 5RF 30 days E29.1 - Testicular hypofunction Patient Instructions: This note is constructed using voice recognition software. While every effort has been made to ensure accuracy poultry service technician errors may have been included. Imaging studies, laboratory and physical exam results were discussed and reviewed in detail. No major barriers to patient understanding were identified. An opportunity to ask questions regarding the treatment plan was provided. All questions were answered. The patient expressed understanding and agreement with the above treatment plan. The patient is aware they should contact our office by phone for worsening of their current condition or the appearance of new urologic symptoms. Compliance is encouraged with any medications and followup testing that is ordered. It is a privilege to participate in the urologic care of your patient. If you have any questions or concerns regarding treatment for the above conditions, or other urologic issues, please do not hesitate to contact me. The office telephone contact is [phone]. Sincerely, Dr Lior Gil MD, [facility] - Urology Compassionate Specialist Care for the Genitourinary System Coding Level of Care Code Est Pt Level 3 (05552) Complex EM visit Add On G2211 Diagnoses Hypogonadism in male E29.1
--- OUTSIDE RECORDS SUMMARY | 2025-05-12 15:52 | XMS_ITS | Patient Health Record ---
Author Organization [facility] Address [address] [place] [id number] Care Team Providers Care Panel Gluer Name Role Phone Sherly Hsieh MD Primary [...] Active Encounters Encounter Location Date Provider Diagnosis [facility] [address] [place] [id number] 11/12/2024 Mehdi Escobar Jr Plan Of Treatment Future Test Test Name Order Date COLONOSCOPY 09/15/2014 Insurance Providers Payer Name Payer Address Payer Phone Subscriber Number Group Number Insured Name Patient Relationship to Insured Coverage Start Date Coverage End Date MEDICARE OF [employer] [address] [id number] KRISTIE GARCIA Self - patient is the insured [facility] [address] [place] [phone] [id number] KRISTIE GARCIA Self - patient is the insured Medical (General) History Medical History History ICD Code hypertension elevated cholesterol allergies Surgical History Surgery Date(Month/Year) ankle/foot surgery
== END 2025-05-12 12:13 | disposition home or self-care (01) ==
LOC: HO.HUSH 11:29
PROVIDERS: PCP Internal Medicine; Visit Provider Urology
DX: E29.1 Testicular hypofunction (principal)
CPT/HCPCS: 99213; G2211

== ENCOUNTER → 2025-05-12 11:28 | Outpatient (BNVA) | payer MEDICARE, OTHER, SELFPAY | PROVIDERS: PCP Internal Medicine; Visit Provider Urology | DX: E29.1 Testicular hypofunction (principal) | CPT/HCPCS: 99212 ==

== ENCOUNTER 2025-06-30 10:32 | Outpatient (AMB) | payer MEDICARE, OTHER, SELFPAY ==
--- NOTE | 2025-06-30 10:42 | A.OFFVIS_ITS ---
Intake Visit Reasons: 6 months f/u Allergies lisinopril Allergy (Intermediate, Verified 06/30/25 10:48) cough Medication List - Last Reconciled 06/30/25 by Glenna Hodges CNP acetaminophen 650 mg (2 x 325 mg) PO Q6H PRN 30 days amitriptyline 10 mg PO BEDTIME 90 days amlodipine 5 mg PO DAILY 90 days amoxicillin 2,000 mg (4 x 500 mg) PO ONCE 1 day aspirin 325 mg PO BID 42 days atorvastatin 20 mg PO DAILY cholecalciferol (vitamin D3) 50 mcg PO DAILY cyanocobalamin (vitamin B-12) 1,000 mcg PO DAILY docusate sodium 100 mg PO BID 30 days fenofibrate 54 mg PO DAILY fluticasone propionate 50 mcg/actuation 2 sprays intranasal DAILY PRN folic acid 1 mg PO DAILY gabapentin 300 mg PO BEDTIME 30 days hydrochlorothiazide 25 mg PO DAILY meloxicam 15 mg PO DAILY PRN methocarbamol 500 mg PO BEDTIME 30 days testosterone (AndroGel) 4 pumps topical DAILY 30 days walker Folding front wheeled walker HPI Comments Details: He was doing okay. Headaches are controlled with amitriptyline. Neck and shoulder pain has been okay. May occasionally get some numbness and tingling to RUE that comes and goes, not significantly bothersome. Taking meloxicam as needed which helps.?No new or increased weakness. Sleep was okay. He enjoyed golfing in the summer. Hx of daily, constant left parietal headache starting in 10/2016 that would come and go, lasting for several hours to whole day. Headaches mostly in left occipital-parietal region, top of head, and sometimes neck. No nausea or vomiting. CT head 01/18/17 normal. No triggers identified. Sleeps well at night, eats regular meals, exercises, and golfs. No unusual stress. No head trauma. Occasionally headache will go away and he gets cold sweat and left posterior neck pain. He started with some pain to R neck, shoulder, and arm in spring 2023 with some intermittent numbness/tingling. PENDING SALE TO [facility] Medical History Back pain History of headache Numbness Osteoarthritis Pes anserine bursitis Annual physical exam Prediabetes Epigastric abdominal pain Abdominal pain RLQ abdominal pain Adult general medical exam Headache Hypercholesterolemia Vitamin D deficiency Allergic rhinitis Obesity (BMI 30-39.9) Hypogonadism Anemia Impaired glucose tolerance Hypertension Surgical History History of left knee replacement Hx of total knee replacement History of colonoscopy Finger amputation, traumatic History of ankle surgery Family History Father Lung cancer Mother Diabetes Hypertension CVD (cardiovascular disease) Brother No problems noted. Social History (Updated 05/05/25 @ 10:44 by Sherly Hsieh MD) Household Members: Spouse Housing: House Are you a primary career development associate to a significant other at home: No Do you presently have visiting nurse or other home services: No Alcohol intake: current Alcohol intake frequency: a few times a week Alcohol type: beer Comment: 2 x a week 2 beers Patient Tobacco Use Status: Former Tobacco user Tobacco use type: Cigarette Years Smoked: quit 1989 e-Cigarette/Vaping Use: Never Used Second Hand Smoke Exposure: Yes service: No Current occupational status: retired Cognitive needs: No Hearing needs: No Vision needs: Yes (Glasses) Review of Systems Const Denies chills, Denies daytime sleepiness, Denies difficulty sleeping, Denies fatigue, Denies fever(s), Denies frequent falls, Reports headache(s), Denies increased appetite, Denies poor appetite, Denies snoring, Denies weakness, Denies weight gain and Denies weight loss Eyes Denies loss of vision ENT Denies vertigo, Denies dizziness, Reports headache(s) and Denies neck pain Card Denies chest pain at rest, Denies chest pain with activity, Denies syncope, Denies leg edema, Denies palpitations, Denies dyspnea and Denies dyspnea on exertion Resp Denies cough, Denies dyspnea, Denies dyspnea on exertion and Denies snoring GI Denies abdominal pain, Denies constipation, Denies heartburn, Denies diarrhea and Denies nausea Denies urinary frequency, Denies urinary incontinence and Denies urinary urgency Musc Denies abnormal gait, Denies back pain, Denies myalgias, Denies arthralgias, Denies neck pain, Denies numbness and Denies tingling Neuro Denies abnormal gait, Denies vertigo, Denies dizziness, Denies syncope, Denies frequent falls, Reports headache(s), Denies lack of coordination, Denies loss of vision, Denies memory loss, Denies numbness, Denies Other visual disturbances, Denies restless legs, Denies seizure-like activity, Denies tingling, Denies paresthesias, Denies tremor(s) and Denies weakness Psych Denies anxiety, Denies depression, Denies auditory hallucinations, Denies memory loss and Denies visual hallucinations Endo Denies fatigue and Denies palpitations Physical Exam Const Other: General Appearance:? normal, in no acute distress. Heart:? S1, S2 normal, no murmurs. Lungs:? clear anteriorly and posteriorly. Musculoskeletal:? normal. Extremities:? no edema. Psych:? alert, oriented, cognitive function intact, cooperative with exam. Neuro Other: Abnormal Neurological Findings:?None. Mental Status: alert and oriented X 3. Normal attention, orientation, memory, and affect. Cranial Nerves: Pupils are equal, round, and reactive to light. External ocular muscles are intact. Visual cam are full, no ptosis. Face is symmetrical, no facial weakness or droop. Facial sensations are normal. Tongue protrudes in midline. Palate elevates symmetrically. Shoulder shrugging is normal Motor Examination: Normal muscle tone, bulk and strength. No atrophy or fasciculations. No drift of the extended upper extremities. DTR 2+. Plantars are flexor. Sensory Exam: Normal light touch, temperature, pinprick, vibration, and joint- position sensations. Rhomberg sign is absent. Coordination: No ataxia. No titubation. Gait Exam: Within normal limits. Cerebellar Signs: [id number] is okay. Extrapyramidal System: No tremor, rigidity with normal facial expressions. No bradykinesia. No bradyphrenia. Normal arm swing and posture. No propulsion or retropulsion. Speech: Normal. Results Reviewed Results Reviewed: 12/18/23 NCV/EMG RTUE Normal motor and sensory nerve conduction velocities in the right upper extremity. EMG of the right C5-T1 shows mild chronic denervation on the right ulnar nerve. 01/22/24 Cspine XR: Advanced degenerative disc disease at C5-C6 Assessment & Plan Assessment & Plan (1) Tension headache: Code(s): G44.209 - Tension-type headache, unspecified, not intractable Category: Medical Plan: Continue amitriptyline 10mg 1 tablet at bedtime. Follow up in 6 months or sooner as needed. (2) Occipital neuralgia: Code(s): M54.81 - Occipital neuralgia Category: Medical Qualifiers: Laterality: unspecified laterality Qualified Code(s): M54.81 - Occipital neuralgia (3) Cervical disc disease: Code(s): M50.90 - Cervical disc disorder, unspecified, unspecified cervical region Category: Medical Plan: Continue meloxicam 15mg 1 tablet daily as needed for pain #30 for 30 days. Plan . Medications: Refilled amitriptyline 10 mg PO BEDTIME 90 tabs 1RF 90 days Coding Level of Care Code Est Pt Level 4 (84908) Diagnoses Tension headache G44.209 Occipital neuralgia, unspecified laterality M54.81 Laterality: unspecified laterality Cervical disc disease M50.90
== END 2025-06-30 10:54 | disposition home or self-care (01) ==
LOC: HO.HSM 10:33
PROVIDERS: PCP Internal Medicine; Referring Provider Internal Medicine; Visit Provider Registered Nurse
DX: G44.209 Tension-type headache, unspecified, not intractable (principal); M54.81 Occipital neuralgia; M50.90 Cervical disc disorder, unspecified, unspecified cervical region
CPT/HCPCS: 99214

== ENCOUNTER → 2025-06-30 10:32 | Outpatient (BNVA) | payer MEDICARE, OTHER, SELFPAY | PROVIDERS: PCP Internal Medicine; Referring Provider Internal Medicine; Visit Provider Registered Nurse | DX: M54.81 Occipital neuralgia (principal); G44.209 Tension-type headache, unspecified, not intractable; M50.90 Cervical disc disorder, unspecified, unspecified cervical region | CPT/HCPCS: 99212 ==